=== PATIENT | female | born 1980 | race Caucasian/White ===

== ENCOUNTER 2016-08-28 06:33 | Inpatient (IN) ==
[2016-08-28] MEDS ORDERED: MORPHINE 2 MG/ML SYRINGE IVP STA (06:57)
[2016-08-28] MEDS ORDERED: ZOFRAN 4 MG/2 ML IVP STA (06:57)
--- NOTE | 2016-08-28 07:12 | ED.PDOC ---
General ED Provider: Dr. LOUIS PANTOJA Chief Complaint: Back Pain Stated Complaint: BACK PAIN Time Seen by Physician: 07:00 Mode of Arrival: Walk-In Information Source: Patient Exam Limitations: No limitations [facility] T[facility] Documentation Reviewed and Agree: No Review of Systems - Review Of Systems Constitutional: Reports: Chills, Malaise, Weakness Eyes: Reports: No symptoms Ears, Nose, Mouth, Throat: Reports: No symptoms Respiratory: Reports: No symptoms Cardiac: Reports: No symptoms GI: Reports: No symptoms : Reports: No symptoms Musculoskeletal: Reports: Back pain Skin: Reports: No symptoms Neurological: Reports: No symptoms Endocrine: Reports: No symptoms Hematologic/Lymphatic: Reports: No symptoms All Other Systems: Reviewed and Negative Past Medical History - Past Medical History Previously Healthy: Yes Endocrine: Reports: None Cardiovascular: Reports: None Respiratory: Reports: None Hematological: Reports: None Gastrointestinal: Reports: None Genitourinary: Reports: None, UTI (yearly-no known predisposing factrs) Neuro/Psych: Reports: Migraine Musculoskeletal: Reports: Back Pain Cancer: Reports: None Last Menstrual Period: 2006 Other Pertinent Past Medical History: chronic low back pain - Surgical History General Surgical History: Reports: Hysterectomy, Tonsillectomy, Back Surgery ( lumbar spine), Other (ear tubes) - Family History Family History: Reports: Unknown - Social History Smoking Status: Current every day smoker Hx Substance Use: No Alcohol Screening: None - Immunizations Tetanus Shot up to Date: Yes Physical Exam - Physical Exam Appearance: Ill-appearing Ill-appearing: Moderate Pain Distress: Moderate Eyes: CRAIG, EOMI, Conjunctiva clear ENT: Ears normal, Nose normal, Oropharynx normal Respiratory: Airway patent, Breath sounds clear, Breath sounds equal, Respirations nonlabored Cardiovascular: RRR, Pulses normal, No rub, No murmur GI/: Soft, Nontender, No masses, Bowel sounds normal, No Organomegaly Musculoskeletal: Normal strength, ROM intact, No edema, No calf tenderness Skin: Warm, Dry, Normal color Neurological: Sensation intact, Motor intact, Reflexes intact, Cranial nerves intact, Alert, Oriented Psychiatric: Affect appropriate, Mood appropriate Interpretation - Radiology Interpretation Radiology Interpretation By: Radiologist Radiology Results: Positive (aUTI) Physician Notification - Case Discussed Physician Notified: COOPER Time of Notification: 09:09 Critical Care Note - Critical Care Note Total Time (mins): 0 Course - Course Hematology/Chemistry: 08/28/16 07:05 08/28/16 07:05 Orders, Labs, Meds: Lab Review 08/28/16 08/28/16 07:05 07:13 WBC 19.21 H RBC 5.21 Hgb 14.1 Hct 43.7 MCV 83.9 MCH 27.1 MCHC 32.3 RDW Coeff of Veronica 13.4 Plt Count 291 Immature Gran % (Auto) 0.4 Neut % (Auto) 86.9 Lymph % (Auto) 9.7 L Boyle % (Auto) 2.4 Eos % (Auto) 0.4 Baso % (Auto) 0.2 Immature Gran # (Auto) 0.1 Neut # 16.7 H Lymph # 1.9 Boyle # 0.5 Eos # 0.1 Baso # 0.0 D-Dimer 1.07 Sodium 141 Potassium 3.8 Chloride 103 Carbon Dioxide 27 Anion Gap 14.8 BUN 16 Creatinine 1.20 Estimated GFR (MDRD) 51.00 BUN/Creatinine Ratio 13.33 Glucose 119 H Calcium 9.6 Total Bilirubin 0.84 AST 13 L ALT 14 Alkaline Phosphatase 98 Total Protein 8.1 Albumin 3.5 Globulin 4.6 Albumin/Globulin Ratio 0.76 Amylase 47 Lipase 20 Urine Color Yellow Urine Clarity Cloudy Urine pH 6.0 Ur Specific [place] 1.020 Urine Protein 2+ Urine Glucose (UA) Negative Urine Ketones Negative Urine Blood 1+ Urine Nitrite Negative Urine Bilirubin Negative Urine Urobilinogen 0.2 Ur Leukocyte Esterase 2+ Urine Microscopic RBC 2-5 Urine Microscopic WBC 30-50 Ur Squamous Epith Cells 5-10 Urine Bacteria 3+ Orders Category Date Time Status ADMIT PATIENT INPATIENT .TO [facility] (MONITORED BED) ADMISSION 08/28/16 09: 05 Active ACTIVITY .Complete BR CARE 08/28/16 09:05 Active INTAKE & OUTPUT Q8HR CARE 08/28/16 09:05 Active NPO REMINDER: IMAGING ONCE CARE 08/28/16 06:58 Completed NPO REMINDER: IMAGING ONCE CARE 08/28/16 08:04 Active TELEMETRY MONITORING TELE CARE 08/28/16 09:06 Active VITAL SIGNS Q8HR CARE 08/28/16 09:05 Active REGULAR DIET DIETARY 08/28/16 Lunch Ordered IV [ED IV/MEDIPORT/POWERPORT] .ONCE EMERGENCY 08/28/16 06:57 Active AMYLASE Stat LAB 08/28/16 07:05 Completed BLOOD CULTURE Stat LAB 08/28/16 08:56 Ordered CBC W/ AUTO DIFF DAILY@0600 LAB 08/29/16 06:00 Ordered CBC W/ AUTO DIFF DAILY@0600 LAB 08/30/16 06:00 Ordered CBC W/ AUTO DIFF DAILY@0600 LAB 08/31/16 06:00 Ordered CBC W/ AUTO DIFF DAILY@0600 LAB 09/01/16 06:00 Ordered CBC W/ AUTO DIFF DAILY@0600 LAB 09/02/16 06:00 Ordered CBC W/ AUTO DIFF DAILY@0600 LAB 09/03/16 06:00 Ordered CBC W/ AUTO DIFF DAILY@0600 LAB 09/04/16 06:00 Ordered CBC W/ AUTO DIFF DAILY@0600 LAB 09/05/16 06:00 Ordered CBC W/ AUTO DIFF DAILY@0600 LAB 09/06/16 06:00 Ordered CBC W/ AUTO DIFF DAILY@0600 LAB 09/07/16 06:00 Ordered CBC W/ AUTO DIFF DAILY@0600 LAB 09/08/16 06:00 Ordered CBC W/ AUTO DIFF DAILY@0600 LAB 09/09/16 06:00 Ordered CBC W/ AUTO DIFF DAILY@0600 LAB 09/10/16 06:00 Ordered CBC W/ AUTO DIFF DAILY@0600 LAB 09/11/16 06:00 Ordered CBC W/ AUTO DIFF DAILY@0600 LAB 09/12/16 06:00 Ordered CBC W/ AUTO DIFF DAILY@0600 LAB 09/13/16 06:00 Ordered CBC W/ AUTO DIFF DAILY@0600 LAB 09/14/16 06:00 Ordered CBC W/ AUTO DIFF DAILY@0600 LAB 09/15/16 06:00 Ordered CBC W/ AUTO DIFF DAILY@0600 LAB 09/16/16 06:00 Ordered CBC W/ AUTO DIFF DAILY@0600 LAB 09/17/16 06:00 Ordered CBC W/ AUTO DIFF Stat LAB 08/28/16 07:05 Completed COMPREHENSIVE METABOLIC PANEL DAILY@0600 LAB 08/29/16 06:00 Ordered COMPREHENSIVE METABOLIC PANEL DAILY@0600 LAB 08/30/16 06:00 Ordered COMPREHENSIVE METABOLIC PANEL DAILY@0600 LAB 08/31/16 06:00 Ordered COMPREHENSIVE METABOLIC PANEL DAILY@0600 LAB 09/01/16 06:00 Ordered COMPREHENSIVE METABOLIC PANEL DAILY@0600 LAB 09/02/16 06:00 Ordered COMPREHENSIVE METABOLIC PANEL DAILY@0600 LAB 09/03/16 06:00 Ordered COMPREHENSIVE METABOLIC PANEL DAILY@0600 LAB 09/04/16 06:00 Ordered COMPREHENSIVE METABOLIC PANEL DAILY@0600 LAB 09/05/16 06:00 Ordered COMPREHENSIVE METABOLIC PANEL DAILY@0600 LAB 09/06/16 06:00 Ordered COMPREHENSIVE METABOLIC PANEL DAILY@0600 LAB 09/07/16 06:00 Ordered COMPREHENSIVE METABOLIC PANEL DAILY@0600 LAB 09/08/16 06:00 Ordered COMPREHENSIVE METABOLIC PANEL DAILY@0600 LAB 09/09/16 06:00 Ordered COMPREHENSIVE METABOLIC PANEL DAILY@0600 LAB 09/10/16 06:00 Ordered COMPREHENSIVE METABOLIC PANEL DAILY@0600 LAB 09/11/16 06:00 Ordered COMPREHENSIVE METABOLIC PANEL DAILY@0600 LAB 09/12/16 06:00 Ordered COMPREHENSIVE METABOLIC PANEL DAILY@0600 LAB 09/13/16 06:00 Ordered COMPREHENSIVE METABOLIC PANEL DAILY@0600 LAB 09/14/16 06:00 Ordered COMPREHENSIVE METABOLIC PANEL DAILY@0600 LAB 09/15/16 06:00 Ordered COMPREHENSIVE METABOLIC PANEL DAILY@0600 LAB 09/16/16 06:00 Ordered COMPREHENSIVE METABOLIC PANEL DAILY@0600 LAB 09/17/16 06:00 Ordered COMPREHENSIVE METABOLIC PANEL Stat LAB 08/28/16 07:05 Completed D-DIMER Stat LAB 08/28/16 07:05 Completed LACTIC ACID Stat LAB 08/28/16 08:56 Ordered LIPASE Stat LAB 08/28/16 07:05 Completed URINALYSIS C & S IF INDICATED Stat LAB 08/28/16 07:13 Completed URINE CULTURE Stat LAB 08/28/16 07:13 Received 0.9 % Sodium Chloride [Saline Flush] MEDS 08/28/16 06:57 Active 1 syr IVF PRN PRN Ceftriaxone Sodium [Rocephin] 1 gm MEDS 08/29/16 09:00 Ordered 0.9 % Sodium Chloride [Sodium Chloride] 50 ml IV DAILY Morphine Sulfate [Morphine 2 mg/ml Syringe] MEDS 08/28/16 06:57 Discontinued 2 mg IVP ONCE STA Morphine Sulfate [Morphine 4 mg/ml Syringe] MEDS 08/28/16 09:30 Ordered 2 mg IVP Q6H Morphine Sulfate [Morphine 4 mg/ml Syringe] MEDS 08/28/16 08:35 Discontinued 4 mg IVP ONCE STA Ondansetron HCl/Pf [Zofran 4 mg/2 ml] MEDS 08/28/16 06:57 Discontinued 4 mg IVP ONCE STA Ondansetron HCl/Pf [Zofran 4 mg/2 ml] MEDS 08/28/16 09:30 Ordered 4 mg IVP Q6H Sodium Chloride 0.9% [Sodium Chloride] 1,000 ml MEDS 08/28/16 09:30 Active IV 75 mls/hr CT ABDOMEN/PELVIS W/WO CONTRAS Stat RADS 08/28/16 08:[address] LUMBAR SPINE W/O CONTRAST Stat RADS 08/28/16 07:11 Completed Medications Generic Name Dose Route Start Last Admin Trade Name Freq PRN Reason Stop Dose Admin Ceftriaxone Sodium 1 gm/ 50 mls @ 75 mls/hr 08/29/16 09:00 Sodium Chloride IV DAILY PAULA Sodium Chloride 1,000 mls @ 75 mls/hr 08/28/16 09:30 Sodium Chloride IV .[id number] PAULA Ceftriaxone Sodium 1 gm/ 50 mls @ 75 mls/hr 08/28/16 09:08 Sodium Chloride IV 08/28/16 09:47 ONCE STA Morphine Sulfate 2 mg 08/28/16 09:30 Morphine 4 Mg/Ml Syringe IVP Q6H PAULA Ondansetron HCl 4 mg 08/28/16 09:30 Zofran 4 Mg/2 Ml IVP Q6H PAULA Sodium Chloride 1 syr 08/28/16 06:57 08/28/16 07:15 Saline Flush IVF 1 syr PRN PRN Administration To flush IV Discontinued Medications Generic Name Dose Route Start Last Admin Trade Name Freq PRN Reason Stop Dose Admin Morphine Sulfate 2 mg 08/28/16 06:57 08/28/16 07:13 Morphine 2 Mg/Ml Syringe IVP 08/28/16 06:58 2 mg ONCE STA Administration Morphine Sulfate 4 mg 08/28/16 08:35 08/28/16 08:49 Morphine 4 Mg/Ml Syringe IVP 08/28/16 08:36 4 mg ONCE STA Administration Ondansetron HCl 4 mg 08/28/16 06:57 08/28/16 07:12 Zofran 4 Mg/2 Ml IVP 08/28/16 06:58 4 mg ONCE STA Administration Vital Signs: Temp Pulse Resp BP Pulse Ox 08/28/16 06:36 97.8 F 123 H 24 122/84 96 Departure - Departure Time of Disposition: 09:09 Disposition: ADMITTED INPATIENT Discharge Problem: Backache, UTI (urinary tract infection) Instructions: Urinary Tract Infection in Women (ED) Condition: Good Pt referred to PMD for follow-up: Yes Additional Instructions: Please call your Family Physician as soon as possible to schedule a follow-up appointment. Allergies/Adverse Reactions: Allergies bacitracin [From Neosporin ([id number])] Adverse Reaction (Verified 08/28/16 06:42) bacitracin zinc [From Neosporin ([id number])] Adverse Reaction (Verified 06:42) diphenhydramine HCl [From Benadryl] Adverse Reaction (Verified 08/28/16 06:42) increases heart rate above 200 levalbuterol HCl [From Xopenex] Adverse Reaction (Verified 08/28/16 06:42) increases heart rate over 200, painful breathing neomycin sulfate [From Neosporin ([id number])] Adverse Reaction (Verified 06:42) polymyxin B [From Neosporin ([id number])] Adverse Reaction (Verified 06:42) prednisone Adverse Reaction (Verified 08/28/16 06:42) Fever causes high fever, rash, redness bacitracin Adverse Reaction (Uncoded 08/28/16 06:42) bacitracin zinc Adverse Reaction (Uncoded 08/28/16 06:42) diphenhydramine HCl Adverse Reaction (Uncoded 08/28/16 06:42) levalbuterol HCl Adverse Reaction (Uncoded 08/28/16 06:42) neomycin sulfate Adverse Reaction (Uncoded 08/28/16 06:42) Polymyxin B Adverse Reaction (Uncoded 08/28/16 06:42) Home Medications: Ambulatory Orders Gabapentin 300 mg PO TID 03/17/15 Esomeprazole Magnesium [Nexium 24Hr] 20 mg PO DAILY 02/09/16 Epinephrine [Epipen 2-Bjorn] 0.3 mg IJ PRN PRN #1 ml 02/10/16 Cholecalciferol (Vitamin D3) [Vitamin D] 1,000 unit PO DAILY 04/19/16 Estradiol 2 mg PO DAILY 04/19/16 Methylprednisolone [Medrol Dosepak] 4 mg PO DIRECTED #1 pkg 04/19/16 Tramadol HCl 50 mg PO BID #14 tablet 04/19/16 Loratadine 10 mg PO DAILY 07/18/16 Disposition Discussed With: Patient, Family
[2016-08-28 07:14] LABS: BASOPHILS % (AUTO) 0.2 % (0.0-3.0); EOSINOPHILS # (AUTO) 0.1 K/ul (0.0-0.7); EOSINOPHILS % (AUTO) 0.4 % (0.0-7.0); HEMATOCRIT 43.7 % (37.0-47.0); HEMOGLOBIN 14.1 g/dl (12.0-16.0); IMMATURE GRANULOCYTE % (AUTO) 0.4 % (0.0-5.0); LYMPHOCYTES # (AUTO) 1.9 K/uL (0.60-3.4); LYMPHOCYTES % (AUTO) 9.7 (10.0-50.0); MEAN CORPUSCULAR HEMOGLOBIN 27.1 pg (27.0-31.0); MEAN CORPUSCULAR HGB CONC 32.3 (31.8-35.4); MEAN CORPUSCULAR VOLUME 83.9 fl (81.0-99.0); MONOCYTES # (AUTO) 0.5 K/uL (0.4-2.0); MONOCYTES % (AUTO) 2.4 (0-10); NEUTROPHILS # (AUTO) 16.7 K/ul (2.0-6.9); NEUTROPHILS % (AUTO) 86.9; PLATELET COUNT 291 10^3/uL (140-440); RED BLOOD COUNT 5.21 10^6/ul (4.20-5.40); WHITE BLOOD COUNT 19.21 K/ul (4.6-10.2)
[2016-08-28 07:34] LABS: ALBUMIN 3.5 g/dL (3.4-5.0); ALBUMIN/GLOBULIN RATIO 0.76; ANION GAP 14.8; BILIRUBIN,TOTAL 0.84 mg/dL (0.00-1.20); BUN/CREATININE RATIO 13.33; CALCIUM 9.6 mg/dL (8.2-10.2); CREATININE 1.2 mg/dL (0.60-1.30); POTASSIUM 3.8 mmol/L (3.5-5.10); TOTAL PROTEIN 8.1 g/dL (6.4-8.2)
[2016-08-28 08:07] LABS: BILIRUBIN,URINE Negative (NEGATIVE); KETONES,URINE Negative (NEGATIVE); LEUKOCYTE ESTERASE ,URINE 2+ (NEGATIVE); NITRITE,URINE Negative (NEGATIVE); PROTEIN,URINE 2+ (NEGATIVE); URINE, BLOOD 1+ (NEGATIVE)
[2016-08-28 08:09] LABS: ADD URINE MICROSCOPIC YES
[2016-08-28 08:10] LABS: BACTERIA,URINE 3+ (NOT PRESENT)
[2016-08-28] MEDS ORDERED: MORPHINE 4 MG/ML SYRINGE IVP STA (08:35)
--- NOTE | 2016-08-28 08:54 | CT ---
EXAM: CT of the lumbar spine without contrast History: Lower back pain. Comparison: CT abdomen pelvis 11/05/2014 Technique: Multiplanar CT images through the lumbar spine were obtained without the administration of IV contrast. Findings: Partially visualized inflammation and urothelial thickening surrounding the right renal p jacinda and proximal right ureter. No acute fracture or subluxation of the lumbar spine. Severe disc space narrowing at L5-S1 with endp late sclerosis, endplate cystic change and disc spacer material. T12-L1: No significant disc bulge, central canal stenosis or bony neural foraminal narrowing. L1-L2: No significant disc bulge, central canal stenosis or neural foraminal narrowing. L2-L3: No significant disc bulge, central canal stenosis or neural foraminal narrowing. L3-L4: Small disc bulge effacing the anterior thecal sac with no significant central canal stenosis or neural foraminal narrowing. L4-L5: Small disc bulge effacing the anterior thecal sac with no significant central canal stenosis or neural foraminal narrowing. L5-S1: No significant disc bulge or central canal stenosis. The finding suggests a right sided easley inectomy. Moderate to severe right and mild to moderate left bony neural foraminal narrowing second aaron to uncovertebral and facet hypertrophy. Impression: 1. No acute fracture or subluxation of the lumbar spine. 2. Partially visualized inflammation and urothelial thickening involving the right renal pelvis and proximal right ureter concerning for urinary tract infection. Distal ureteral stone is not exclude d. Correlate with urinalysis. 3. Level by level analysis as detailed above with postsurgical changes at L5-S1 and moderate to sev ere right-sided bony neural foraminal narrowing at L5-S1.
--- NOTE | 2016-08-28 08:59 | CT ---
EXAM: CT scan of the abdomen and pelvis with and without contrast HISTORY: Fever, pain TECHNIQUE: Imaging of the abdomen and pelvis was performed before and following the intravenous adm inistration of contrast. 3 mm thin axial images and coronal and sagittal reconstructions were provi ded for interpretation. Comparison 11/05/2014. FINDINGS: The liver, spleen, pancreas, adrenal glands appear normal. There is mild dilatation of t he proximal right ureter. There is enhancement of the wall of the proximal right ureter. Patchy lo w density changes are seen within the right kidney. The left kidney appears normal. The left ureter appears normal size. The small and large bowel loops are normal caliber. The appendix appears nor mal. There has been previous cholecystectomy. The helical images obtained through the pelvis. There is a normal appearance of the rectum, urinary bladder. There is no free fluid seen within the pelvis. There is no free air. No acute abnormali ties are seen within the anterior abdominal wall. Patchy atelectasis is identified within the lung bases bilaterally. No lytic or blastic lesions are seen within the osseous structures. IMPRESSION: Acute pyelonephritis of the right kidney. No evidence for small bowel obstruction.
[2016-08-28] MEDS ORDERED: ROCEPHIN 1 GM in SODIUM CHLORIDE 50 ML IV STA (09:08)
[2016-08-28] MEDS ORDERED: ROCEPHIN ONE (09:26)
[2016-08-28] MEDS ORDERED: MORPHINE 4 MG/ML SYRINGE IVP SCH (09:30)
[2016-08-28] MEDS: SODIUM CHLORIDE 1,000 ML IV SCH (09:46)
[2016-08-28 11:00] VITALS: BMI 32.0
[2016-08-28] MEDS: DILAUDID 2 MG/ML SYRINGE IVP PRN ×2 (11:11→18:27)
[2016-08-28] MEDS ORDERED: ZOFRAN 4 MG/2 ML IVP SCH (12:00)
[2016-08-28] MEDS ORDERED: MORPHINE 2 MG/ML SYRINGE IVP SCH (12:00)
[2016-08-28] MEDS: BACLOFEN PO SCH ×2 (15:22→20:06)
[2016-08-28] MEDS: NEURONTIN PO SCH ×2 (15:22→20:06)
[2016-08-28] MEDS: ZOFRAN 4 MG/2 ML IVP PRN (18:27)
[2016-08-28] MEDS ORDERED: VANCOMYCIN 1 GM in SODIUM CHLORIDE 250 ML IV SCH (22:00)
[2016-08-29] MEDS: SODIUM CHLORIDE 1,000 ML IV SCH (00:58)
[2016-08-29] MEDS: ZOFRAN 4 MG/2 ML IVP PRN ×3 (01:56→21:36)
[2016-08-29] MEDS: DILAUDID 2 MG/ML SYRINGE IVP PRN ×3 (01:56→21:33)
[2016-08-29 04:31] LABS: BASOPHILS % (AUTO) 0.1 % (0.0-3.0); EOSINOPHILS # (AUTO) 0.2 K/ul (0.0-0.7); EOSINOPHILS % (AUTO) 1.2 % (0.0-7.0); HEMATOCRIT 34.8 % (37.0-47.0); HEMOGLOBIN 11.3 g/dl (12.0-16.0); IMMATURE GRANULOCYTE % (AUTO) 0.8 % (0.0-5.0); LYMPHOCYTES % (AUTO) 20.9 (10.0-50.0); MEAN CORPUSCULAR HEMOGLOBIN 27.4 pg (27.0-31.0); MEAN CORPUSCULAR HGB CONC 32.5 (31.8-35.4); MEAN CORPUSCULAR VOLUME 84.5 fl (81.0-99.0); MONOCYTES # (AUTO) 1.3 K/uL (0.4-2.0); MONOCYTES % (AUTO) 8.9 (0-10); NEUTROPHILS # (AUTO) 9.7 K/ul (2.0-6.9); NEUTROPHILS % (AUTO) 68.1; PLATELET COUNT 223 10^3/uL (140-440); RED BLOOD COUNT 4.12 10^6/ul (4.20-5.40); WHITE BLOOD COUNT 14.22 K/ul (4.6-10.2)
[2016-08-29 04:49] LABS: ALBUMIN 2.8 g/dL (3.4-5.0); ALBUMIN/GLOBULIN RATIO 0.72; BILIRUBIN,TOTAL 0.59 mg/dL (0.00-1.20); BUN/CREATININE RATIO 12.87; CALCIUM 8.9 mg/dL (8.2-10.2); CREATININE 1.01 mg/dL (0.60-1.30); TOTAL PROTEIN 6.7 g/dL (6.4-8.2)
[2016-08-29] MEDS ORDERED: ROCEPHIN 1 GM in SODIUM CHLORIDE 50 ML IV SCH (09:00)
[2016-08-29] MEDS ORDERED: ROCEPHIN 1 GM in SODIUM CHLORIDE 100 ML IV SCH (09:00)
[2016-08-29] MEDS: NEURONTIN PO SCH ×3 (09:02→21:17)
[2016-08-29] MEDS: BACLOFEN PO SCH ×3 (09:02→21:17)
[2016-08-29] MEDS: VANCOMYCIN 1 GM in SODIUM CHLORIDE 250 ML IV SCH ×2 (10:10→21:17)
[2016-08-29] MEDS ORDERED: IMITREX PO STA (10:34)
[2016-08-29] MEDS ORDERED: IMITREX PO PRN (10:35)
--- NOTE | 2016-08-29 11:05 | HP ---
DATE OF SERVICE: 08/28/16 CHIEF COMPLAINT: Right constant flank pain. HISTORY OF PRESENT ILLNESS: This is a 36-year-old female who has been having right-sided flank pain starting two to three days ago. Before that, the patient had burning, frequency and urgency of urination. The patient also had a recent lower back surgery where a pain stimulator was placed by Dr. Khan. Initially she thought it was hurting from back spasm but as the pain was getting worse, the patient came to the emergency room and was seen by Dr. Walter. White count was 19,000. D. dimer negative. Urine is cloudy with 2+ protein, 1+ blood. Nitrites negative. Leukocyte esterase 2+ positive. CT abdomen and pelvis showed right-sided pyelonephritis. At that time, the patient is admitted to the hospital for IV antibiotics and pain control. REVIEW OF SYSTEMS: CONSTITUTIONAL: Weakness, tiredness. No fever, no chills. HEENT: Normal. ENDOCRINE: No weight gain; no weight loss. CVS: No chest pain. No PND, no orthopnea. No shortness of breath. RESPIRATORY: No cough, no congestion. No hemoptysis. GI: Right flank pain. No nausea, no vomiting. No abdominal pain. No melena. : Burning and frequency of urination. No hematuria. No polyuria. MUSCULOSKELETAL: No joint swelling. PSYCHIATRIC: Not anxious. No depression. No suicidal thoughts. No homicidal thoughts. SKIN: Intact, no open lesions. PAST MEDICAL HISTORY: 1. Depression 2. Anxiety 3. DJD spine 4. Osteoarthritis 5. Peripheral neuropathy PAST SURGICAL HISTORY: 1. Spinal fusion 2. Total hysterectomy 3. Lumbar stimulator, 08/17/[address] Khan PERSONAL HISTORY: The patient does smoke. She is . No alcohol use. No ilicit drug use. FAMILY HISTORY: Significant for cervical cancer. MEDICATIONS: (HOME) 1. Gabapentin 300 mg p.o. t.i.d. 2. Epinephrine (Epipen) 0.3 mg p.r.n. 3. Cholecalciferol (Vitamin D3) 1,000 unit p.o. daily 4. Estradiol 2 mg p.o. daily 5. Loratadine 10 mg p.o. daily 6. Fluticasone two spray NS daily p.r.n. 7. Baclofen 10 mg p.o. t.i.d. 8. Oxycodone - Acetaminophen 10-325 one tab p.o. q.4h ALLERGIES: BACITRACIN, DIPHENHYDRAMINE, LEVALBUTEROL PHYSICAL EXAMINATION: V/S: BP 122/84, respiratory rate 24, heart rate 96, temperature 97.8, heart rate 123, saturation 96%. HEENT: Atraumatic, normocephalic. Mucosa dry. NECK: Supple. No JVD, no bruit. No lymphadenopathy. No thyromegaly. HEART: S1, S2 normal. No murmur. No cyanosis or clubbing. No ascites. LUNGS: Bilateral entry is decreased and clear to auscultation. No rales or rhonchi. ABDOMEN: Soft, right flank pain, right CVA tenderness positive. EXTREMITIES: No cyanosis, clubbing or pedal edema. MUSCULOSKELETAL: Normal joints, no swelling. Grossly intact. NEUROLOGIC: The patient is awake, alert, oriented times three. SKIN: Intact; no open lesions. LYMPHATIC: No lymph nodes palpable. LABS: White count 19.21, hemoglobin 14.1, hematocrit 43.7, platelet count 291. D. dimer 1.07. Sodium 141, potassium 3.8, chloride 103, bicarb 27, BUN 16, creatinine 1.20, glucose 119. Urine is cloudy. Protein 2+. Blood 1+. Leukocyte Esterase 2+. 3+ bacteria. ASSESSMENT: 1. RIGHT-SIDED ACUTE PYELONEPHRITIS 2. RECENT PAIN STIMULATOR ON 08/17/[address] KHAN 3. DJD SPINE 4. OSTEOARTHRITIS PLAN: 1. Admit the patient to the regular floor. 2. CBC, CMP today and daily. 3. Regular diet. 4. IV fluids. 5. Rocephin 1 gm daily. 6. Continue home medication. 7. Dilaudid 2 mg for moderate to severe pain. TIME SPENT: More than 65 minutes today. MTDD
--- NOTE | 2016-08-29 13:50 | PCM.PROG ---
Attending Provider: ATTENDING PROVIDER: Dr. RADHA GAMBOA DATE OF SERVICE: 08/29/16 SUBJECTIVE: This 36 year old WHITE/ F was hospitalized 08/28/16. The patient is admitted with right-sided flank pain, back pain and UTI. CT scan revealed right pyelonephritis. Blood cultures are positive for gram positive cocci. No fever. White count is better. The patient was started on Vancomycin last night. Will inform Dr. Khan of her admission. REVIEW OF SYSTEMS: CONSTITUTIONAL: No fever, no chills. ENDOCRINE: No weight loss or weight gain. HEENT: No sinus drainage, no sore throat. NECK: Neck pain and stiffness - the patient can touch chin to chest without rigidity. Most likely pain and stiffness is caused by muscle spasm. CVS: No angina symptoms. No CHF symptoms. No palpitations. No atypical chest pain for CAD. No shortness of breath. RESPIRATORY: No cough, no hemoptysis. GI: Right flank pain. No melena. No nausea, no vomiting. : No hematuria. No polyuria. SKIN: Surgical site looks healthy - mid to left lower back with tenderness. MUSCULOSKELETAL: Back pain; neck pain. COFFIN MAKER: No blackout, no dizziness. No headache. No double vision. PSYCHIATRIC: Not anxious; no depression. No suicidal thoughts. No homicidal thoughts. PHYSICAL EXAMINATION: GENERAL: Lying in bed in mild distress. VITAL SIGNS: Temperature 97.4 F, Pulse 72, Respiratory Rate 17, BP 85/54, Pulse Ox 96% HEENT: Normocephalic, atraumatic. Mucosa is dry, pallor positive. NECK: As above - pain and stiffness. Range of motion decreased. No JVP, no carotid bruit. No lymphadenopathy. CARDIAC: S1, S2, no S3. No murmur, gallop or regurgitation. LUNGS: Clear to auscultation. ABDOMEN: Right flank pain. Bowel sounds active. Right CVA tenderness. No Brudzkinski signs. Surgical site mid to left lower back -mild tenderness, no drainage, healthy looking. EXTREMITIES: No clubbing, cyanosis or edema. NEUROLOGIC: Awake, alert and oriented x3. LYMPHATIC: No palpable lymph nodes SKIN: Not dry. Intact. MUSCULOSKELETAL: No joint swelling. LAB REVIEW: 08/29/16 04:26 08/29/16 04:26 08/29/16 04:26: WBC 14.22 H, RBC 4.12 L, Hgb 11.3 L, Hct 34.8 L D, MCV 84.5, MCH 27.4, MCHC 32.5, RDW Coeff of Veronica 13.5, Plt Count 223, Immature Gran % (Auto ) 0.8, Neut % (Auto) 68.1, Lymph % (Auto) 20.9, [place] % (Auto) 8.9, Eos % (Auto) 1.2, Baso % (Auto) 0.1, Immature Gran # (Auto) 0.1, Neut # 9.7 H, Lymph # 3.0, [place] # 1.3, Eos # 0.2, Baso # 0.0, Sodium 139, Potassium 4.0, Chloride 104, Carbon Dioxide 27, Anion Gap 12.0, BUN 13, Creatinine 1.01, Estimated GFR (MDRD ) 63.00, BUN/Creatinine Ratio 12.87, Glucose 98, Calcium 8.9, Total Bilirubin 0.59, AST 12 L, ALT 10 L, Alkaline Phosphatase 78, Total Protein 6.7, Albumin 2.8 L, Globulin 3.9, Albumin/Globulin Ratio 0.72 ASSESSMENT: 1. Right pyelonephritis 2. Bacturemia with gram positive cocci 3. DJD spine 4. Osteoarthritis 5. Recent TENS unit placement by Dr. Khan on August 17 PLAN: 1. Continue Rocephin and Vancomycin 2. Will inform Dr. Khan of the patient's admission should the patient be transferred to [facility], [place], [facility] and coordination of the patient's care discussed in the presence of Eligibility Consultant and nurse. CONDITION: STABLE SCRIBED BY: Zion BURNSist scribed while in presence of service performed by Dr. RADHA GAMBOA on 08/29/16 ([id number])
[2016-08-29] MEDS: NORCO 7.5-325 PO PRN (17:49)
[2016-08-29] MEDS ORDERED: VANCOMYCIN 1 GM in SODIUM CHLORIDE 250 ML IV SCH (21:00)
[2016-08-30] MEDS: SODIUM CHLORIDE 1,000 ML IV SCH ×3 (02:46→17:59)
[2016-08-30 05:12] LABS: BASOPHILS % (AUTO) 0.1 % (0.0-3.0); EOSINOPHILS # (AUTO) 0.1 K/ul (0.0-0.7); EOSINOPHILS % (AUTO) 0.9 % (0.0-7.0); HEMOGLOBIN 12.1 g/dl (12.0-16.0); IMMATURE GRANULOCYTE % (AUTO) 0.3 % (0.0-5.0); LYMPHOCYTES # (AUTO) 1.8 K/uL (0.60-3.4); LYMPHOCYTES % (AUTO) 22.9 (10.0-50.0); MEAN CORPUSCULAR HEMOGLOBIN 27.2 pg (27.0-31.0); MEAN CORPUSCULAR HGB CONC 31.8 (31.8-35.4); MEAN CORPUSCULAR VOLUME 85.4 fl (81.0-99.0); MONOCYTES # (AUTO) 0.7 K/uL (0.4-2.0); MONOCYTES % (AUTO) 8.4 (0-10); NEUTROPHILS # (AUTO) 5.3 K/ul (2.0-6.9); NEUTROPHILS % (AUTO) 67.4; PLATELET COUNT 225 10^3/uL (140-440); RED BLOOD COUNT 4.45 10^6/ul (4.20-5.40); WHITE BLOOD COUNT 7.78 K/ul (4.6-10.2)
[2016-08-30] MEDS: NORCO 7.5-325 PO PRN ×2 (05:23→19:41)
[2016-08-30 05:32] LABS: ALBUMIN/GLOBULIN RATIO 0.68; BILIRUBIN,TOTAL 0.37 mg/dL (0.00-1.20); BUN/CREATININE RATIO 7.76; CALCIUM 9.3 mg/dL (8.2-10.2); CREATININE 1.03 mg/dL (0.60-1.30); TOTAL PROTEIN 7.4 g/dL (6.4-8.2)
[2016-08-30] MEDS: ROCEPHIN 1 GM in SODIUM CHLORIDE 50 ML IV SCH (08:53)
[2016-08-30] MEDS: BACLOFEN PO SCH ×3 (08:53→20:17)
[2016-08-30] MEDS: NEURONTIN PO SCH ×3 (08:53→20:17)
[2016-08-30] MEDS ORDERED: ROCEPHIN 1 GM in SODIUM CHLORIDE 100 ML IV SCH (09:00)
--- NOTE | 2016-08-30 09:32 | PCM.PROG ---
Attending Provider: ATTENDING PROVIDER: Dr. RADHA GAMBOA DATE OF SERVICE: 08/30/16 SUBJECTIVE: This 36 year old WHITE/ F was hospitalized 08/28/16. The patient continues to have a fever of 100. Urine and blood cultures are positive for E. coli which is sensitive to Rocephin. She complains of a dull headache that she describes comes in waves. She states she has had migraines in the past; however , this headache came on with the present illness. The patient has been up walking. No nausea or vomiting. She states she is able to hold down all of her food. Neck pain and stiffness is better. REVIEW OF SYSTEMS: CONSTITUTIONAL: Fever. No chills. ENDOCRINE: No weight loss or weight gain. HEENT: No sinus drainage, no sore throat. CVS: No angina symptoms. No CHF symptoms. No palpitations. No atypical chest pain for CAD. No shortness of breath. RESPIRATORY: No cough, no hemoptysis. GI: No melena. No abdominal pain. No nausea, no vomiting. : No hematuria. No polyuria. SKIN: No rash. No wounds. MUSCULOSKELETAL: No pain. ENERGY DERIVATIVES TRADER: No blackout, no dizziness. No headache. No double vision. PSYCHIATRIC: Not anxious; no depression. No suicidal thoughts. No homicidal thoughts. PHYSICAL EXAMINATION: GENERAL: Lying in bed in no distress. VITAL SIGNS: Temperature 100.7 F, Pulse 88, Respiratory Rate 16, BP 101/68, Pulse Ox 97% HEENT: Normocephalic, atraumatic. Mucosa is dry, pallor positive. NECK: No JVP, no carotid bruit. No lymphadenopathy. CARDIAC: S1, S2, no S3. No murmur, gallop or regurgitation. LUNGS: Clear to auscultation. ABDOMEN: Right CVA tenderness is better. Soft, non-tender. Bowel sounds active. No rigidity or guarding. EXTREMITIES: No clubbing, cyanosis or edema. NEUROLOGIC: Awake, alert and oriented x3. LYMPHATIC: No palpable lymph nodes SKIN: Not dry. Intact. MUSCULOSKELETAL: No joint swelling. LAB REVIEW: 08/30/16 05:10 08/30/16 05:10 08/30/16 05:10: WBC 7.78 D, RBC 4.45, Hgb 12.1, Hct 38.0, MCV 85.4, MCH 27.2, MCHC 31.8, RDW Coeff of Veronica 13.4, Plt Count 225, Immature Gran % (Auto) 0.3, Neut % (Auto) 67.4, Lymph % (Auto) 22.9, [place] % (Auto) 8.4, Eos % (Auto) 0.9, Baso % (Auto) 0.1, Immature Gran # (Auto) 0.0, Neut # 5.3, Lymph # 1.8, [place] # 0.7, Eos # 0.1, Baso # 0.0, Sodium 142, Potassium 4.0, Chloride 104, Carbon Dioxide 28, Anion Gap 14.0, BUN 8, Creatinine 1.03, Estimated GFR (MDRD) 61.00, BUN/Creatinine Ratio 7.76, Glucose 95, Calcium 9.3, Total Bilirubin 0.37, AST 13 L, ALT 14, Alkaline Phosphatase 83, Total Protein 7.4, Albumin 3.0 L, Globulin 4.4, Albumin/Globulin Ratio 0.68 ASSESSMENT: 1. Right pyelonephritis 2. Bacturemia with gram positive cocci 3. DJD spine 4. Osteoarthritis 5. Recent TENS unit placement by Dr. Khan on August 17 6. History of migraine headaches PLAN: 1. Continue antibiotics 2. Stop Vancomycin 3. Continue Rocephin Plan and coordination of the patient's care discussed in the presence of Is Manager and nurse. CONDITION: Stable SCRIBED BY: ALEX ROGERS Wind Turbine Mechanical Engineer scribed while in presence of service performed by Dr. RADHA GAMBOA on 08/30/16 ([id number])
[2016-08-30] MEDS: DILAUDID 2 MG/ML SYRINGE IVP PRN (13:30)
[2016-08-31] MEDS: ZOFRAN 4 MG/2 ML IVP PRN (01:32)
[2016-08-31] MEDS: DILAUDID 2 MG/ML SYRINGE IVP PRN ×2 (01:32→13:54)
[2016-08-31 05:06] LABS: BASOPHILS % (AUTO) 0.1 % (0.0-3.0); EOSINOPHILS # (AUTO) 0.2 K/ul (0.0-0.7); HEMATOCRIT 34.4 % (37.0-47.0); HEMOGLOBIN 10.9 g/dl (12.0-16.0); IMMATURE GRANULOCYTE % (AUTO) 0.5 % (0.0-5.0); LYMPHOCYTES # (AUTO) 2.7 K/uL (0.60-3.4); LYMPHOCYTES % (AUTO) 34.5 (10.0-50.0); MEAN CORPUSCULAR HGB CONC 31.7 (31.8-35.4); MEAN CORPUSCULAR VOLUME 85.4 fl (81.0-99.0); MONOCYTES % (AUTO) 12.4 (0-10); NEUTROPHILS % (AUTO) 50.5; PLATELET COUNT 223 10^3/uL (140-440); RED BLOOD COUNT 4.03 10^6/ul (4.20-5.40); WHITE BLOOD COUNT 7.92 K/ul (4.6-10.2)
[2016-08-31 05:27] LABS: ALBUMIN 2.8 g/dL (3.4-5.0); ALBUMIN/GLOBULIN RATIO 0.68; ANION GAP 12.3; BILIRUBIN,TOTAL 0.28 mg/dL (0.00-1.20); BUN/CREATININE RATIO 8.42; CALCIUM 9.3 mg/dL (8.2-10.2); CREATININE 0.95 mg/dL (0.60-1.30); POTASSIUM 4.3 mmol/L (3.5-5.10); TOTAL PROTEIN 6.9 g/dL (6.4-8.2)
[2016-08-31] MEDS: SODIUM CHLORIDE 1,000 ML IV SCH ×2 (08:19→23:27)
[2016-08-31] MEDS: NORCO 7.5-325 PO PRN ×2 (08:26→20:16)
[2016-08-31] MEDS: ROCEPHIN 1 GM in SODIUM CHLORIDE 50 ML IV SCH (09:15)
[2016-08-31] MEDS: NEURONTIN PO SCH ×3 (09:15→20:15)
[2016-08-31] MEDS: BACLOFEN PO SCH ×3 (09:15→20:15)
[2016-09-01] MEDS: DILAUDID 2 MG/ML SYRINGE IVP PRN (01:27)
[2016-09-01 05:48] LABS: BASOPHILS % (AUTO) 0.1 % (0.0-3.0); EOSINOPHILS # (AUTO) 0.2 K/ul (0.0-0.7); HEMATOCRIT 32.9 % (37.0-47.0); HEMOGLOBIN 10.8 g/dl (12.0-16.0); IMMATURE GRANULOCYTE % (AUTO) 0.6 % (0.0-5.0); LYMPHOCYTES # (AUTO) 2.9 K/uL (0.60-3.4); LYMPHOCYTES % (AUTO) 36.9 (10.0-50.0); MEAN CORPUSCULAR HEMOGLOBIN 27.6 pg (27.0-31.0); MEAN CORPUSCULAR HGB CONC 32.8 (31.8-35.4); MEAN CORPUSCULAR VOLUME 84.1 fl (81.0-99.0); MONOCYTES # (AUTO) 0.7 K/uL (0.4-2.0); NEUTROPHILS % (AUTO) 50.4; PLATELET COUNT 256 10^3/uL (140-440); RED BLOOD COUNT 3.91 10^6/ul (4.20-5.40); WHITE BLOOD COUNT 7.92 K/ul (4.6-10.2)
[2016-09-01 06:10] LABS: ALBUMIN 2.6 g/dL (3.4-5.0); ALBUMIN/GLOBULIN RATIO 0.67; ANION GAP 11.3; BILIRUBIN,TOTAL 0.18 mg/dL (0.00-1.20); BUN/CREATININE RATIO 10.1; CALCIUM 9.2 mg/dL (8.2-10.2); CREATININE 0.99 mg/dL (0.60-1.30); POTASSIUM 4.3 mmol/L (3.5-5.10); TOTAL PROTEIN 6.5 g/dL (6.4-8.2)
[2016-09-01] MEDS: BACLOFEN PO SCH ×3 (09:03→20:27)
[2016-09-01] MEDS: NEURONTIN PO SCH ×3 (09:03→20:27)
[2016-09-01] MEDS: ROCEPHIN 1 GM in SODIUM CHLORIDE 50 ML IV SCH (09:03)
--- NOTE | 2016-09-01 09:06 | PN ---
DATE OF SERVICE: 08/31/16 SUBJECTIVE: The patient was admitted with the right sided pyelonephritis, blood culture is also positive for the e-coli and sensitive to the Rocephin. REVIEW OF SYSTEMS: CONSTITUTIONAL: No fever, no chills. HEENT: Normal. ENDOCRINE: No weight gain, no weight loss. CVS: No angina symptoms. No CHF symptoms. No palpitations. No atypical chest pain for CAD. No shortness of breath. No PND, no orthopnea. RESPIRATORY: No cough, no hemoptysis. GI: No nausea, no vomiting. No abdominal pain. : No hematuria. No polyuria. MUSCULOSKELETAL:. No joint swelling. Still has right sided flank pain. Up and about walking. PSYCHIATRIC: Not anxious. No depression. No suicidal thoughts. No homicidal thoughts. SKIN: Intact. No rash. PHYSICAL EXAMINATION: V/S: Blood pressure 136/84, respiratory rate 18, heart rate 92 and temperature 98.0. HEENT: Normocephalic, atraumatic. Ears, eyes, nose and throat normal. Mucosa Dry. Pallor positive. No icterus. NECK: Supple. No JVD, no carotid bruit. No lymphadenopathy. LUNGS: Decreased and clear to auscultation. No rales or rhonchi. HEART: S1, S2 normal. No S3. No murmur, gallop or regurgitation. ABDOMEN: Soft, right severe tenderness present. Bowel sounds active. No rigidity. No rebound or guarding. No CVA tenderness. EXTREMITIES: No clubbing, cyanosis or pedal edema. MUSCULOSKELETAL: No joint swelling. surgical site on the back looks healthy and no drainage. NEUROLOGIC: Awake, alert, oriented times three. No focal deficit. LYMPHATIC: No lymph nodes palpable. SKIN: Intact. LABS: WBC 7.92, hgb 10.9, hct 34.4, plt count 223, sodium 142, potassium 4.3, chloride 106, bicarb 28, BUN 8 and creatinine 0.95. ASSESSMENT: 1. Right sided acute pyelonephritis 2. Bacteremia, e-coli susceptible to the Rocephin 3. Recent TENS unit placement by Dr. Khan 4. DJD spine 5. Osteoarthritis 6. History of migraine headaches 7. Anemia PLAN: 1. Continue the Rocephin 1 gram daily 2. Dilaudid PRN 3. Out of bed to chair activity as tolerated 4. Dr. Lo consult Will follow the patient in daily rounds. TIME SPENT: More than 30 minutes MTDD
[2016-09-01] MEDS: NORCO 7.5-325 PO PRN ×2 (09:08→15:35)
--- NOTE | 2016-09-01 09:23 | PCM.PROG ---
Attending Provider: ATTENDING PROVIDER: Dr. RADHA GAMBOA DATE OF SERVICE: 09/01/16 SUBJECTIVE: This 36 year old WHITE/ F was hospitalized 08/28/16. The patient is afebrile this morning. No chills. Neck pain and headache are a lot better. Right flank pain is still present. We did draw blood cultures yesterday, results pending. REVIEW OF SYSTEMS: CONSTITUTIONAL: No fever, no chills. ENDOCRINE: No weight loss or weight gain. HEENT: No sinus drainage, no sore throat. CVS: No angina symptoms. No CHF symptoms. No palpitations. No atypical chest pain for CAD. No shortness of breath. RESPIRATORY: No cough, no hemoptysis. GI: Right flank pain. No melena. No nausea, no vomiting. : No hematuria. No polyuria. SKIN: No rash. Surgical incision sites are clean and dry. MUSCULOSKELETAL: No osteoarthritic pain. FIELD COURT RESEARCHER: No blackout, no dizziness. No headache. No double vision. PSYCHIATRIC: Not anxious; no depression. No suicidal thoughts. No homicidal thoughts. PHYSICAL EXAMINATION: GENERAL: Lying in bed in no distress. VITAL SIGNS: Temperature 97.4 F, Pulse 80, Respiratory Rate 20, BP 113/80, Pulse Ox 98% HEENT: Normocephalic, atraumatic. Mucosa is dry, pallor positive. NECK: No JVP, no carotid bruit. No lymphadenopathy. CARDIAC: S1, S2, no S3. No murmur, gallop or regurgitation. LUNGS: Clear to auscultation. ABDOMEN: Right CVA tenderness, mild. Soft, non-tender. Bowel sounds active. No rigidity or guarding. EXTREMITIES: No clubbing, cyanosis or edema. NEUROLOGIC: Awake, alert and oriented x3. LYMPHATIC: No palpable lymph nodes SKIN: Not dry. Intact. MUSCULOSKELETAL: No joint swelling. Surgical site intact. LAB REVIEW: 09/01/16 05:30 09/01/16 05:30 09/01/16 05:30: WBC 7.92, RBC 3.91 L, Hgb 10.8 L, Hct 32.9 L, MCV 84.1, MCH 27.6 , MCHC 32.8, RDW Coeff of Veronica 13.3, Plt Count 256, Immature Gran % (Auto) 0.6, Neut % (Auto) 50.4, Lymph % (Auto) 36.9, [place] % (Auto) 9.0, Eos % (Auto) 3.0, Baso % (Auto) 0.1, Immature Gran # (Auto) 0.1, Neut # 4.0, Lymph # 2.9, [place] # 0.7, Eos # 0.2, Baso # 0.0, Sodium 143, Potassium 4.3, Chloride 108 H, Carbon Dioxide 28, Anion Gap 11.3, BUN 10, Creatinine 0.99, Estimated GFR (MDRD) 64.00 , BUN/Creatinine Ratio 10.10, Glucose 87, Calcium 9.2, Total Bilirubin 0.18, AST 12 L, ALT 15, Alkaline Phosphatase 68, Total Protein 6.5, Albumin 2.6 L, Globulin 3.9, Albumin/Globulin Ratio 0.67 ASSESSMENT: 1. Right pyelonephritis, E. coli 2. Bacturemia E. coli 3. Anemia 4. DJD spine 5. Osteoarthritis 6. Recent TENS unit placement by Dr. Khan on August 17 7. History of migraine headaches PLAN: 1. Continue Rocephin 2. Followup with Dr. Khan Discussed with the patient concerning positive blood cultures and UTI for which the patient will need almost 14 days of antibiotics. The patient has followup with Dr. Khan today with respect to TENS unit placement. Meanwhile, we are trying to get consult with Dr. Lo. The patient is agreeable for outpatient antibiotics and she is aware of infection risk of IV site and promised to keep the area clean and if any signs of redness or pain, this has to be removed. The patient voiced understanding and is agreeable. Plan and coordination of the patient's care discussed in the presence of Assistant Scientist and nurse. CONDITION: Stable SCRIBED BY: ALEX ROGERS, Remote Mortgage Underwriter scribed while in presence of service performed by Dr. RADHA GAMBOA on 09/01/16 ([id number])
[2016-09-01] MEDS: SODIUM CHLORIDE 1,000 ML IV SCH (11:08)
[2016-09-02 07:37] LABS: BASOPHILS % (AUTO) 0.1 % (0.0-3.0); EOSINOPHILS # (AUTO) 0.3 K/ul (0.0-0.7); EOSINOPHILS % (AUTO) 3.1 % (0.0-7.0); HEMATOCRIT 34.6 % (37.0-47.0); HEMOGLOBIN 11.4 g/dl (12.0-16.0); IMMATURE GRANULOCYTE % (AUTO) 0.7 % (0.0-5.0); LYMPHOCYTES # (AUTO) 2.8 K/uL (0.60-3.4); LYMPHOCYTES % (AUTO) 34.4 (10.0-50.0); MEAN CORPUSCULAR HEMOGLOBIN 27.1 pg (27.0-31.0); MEAN CORPUSCULAR HGB CONC 32.9 (31.8-35.4); MEAN CORPUSCULAR VOLUME 82.2 fl (81.0-99.0); MONOCYTES # (AUTO) 0.5 K/uL (0.4-2.0); MONOCYTES % (AUTO) 6.5 (0-10); NEUTROPHILS # (AUTO) 4.5 K/ul (2.0-6.9); NEUTROPHILS % (AUTO) 55.2; PLATELET COUNT 304 10^3/uL (140-440); RED BLOOD COUNT 4.21 10^6/ul (4.20-5.40); WHITE BLOOD COUNT 8.14 K/ul (4.6-10.2)
[2016-09-02 08:04] LABS: ALBUMIN 2.7 g/dL (3.4-5.0); ALBUMIN/GLOBULIN RATIO 0.66; ANION GAP 15.3; BILIRUBIN,TOTAL 0.21 mg/dL (0.00-1.20); BUN/CREATININE RATIO 12.08; CALCIUM 9.2 mg/dL (8.2-10.2); CREATININE 0.91 mg/dL (0.60-1.30); POTASSIUM 4.3 mmol/L (3.5-5.10); TOTAL PROTEIN 6.8 g/dL (6.4-8.2)
[2016-09-02] MEDS ORDERED: ROCEPHIN IM SCH (09:00)
[2016-09-02] MEDS ORDERED: LIDOCAINE 1 % AMP 5 ML (SUTURES) IM SCH (09:00)
[2016-09-02] MEDS: NEURONTIN PO SCH (09:38)
[2016-09-02] MEDS: BACLOFEN PO SCH (09:38)
[2016-09-02] MEDS: NORCO 7.5-325 PO PRN (09:44)
[2016-09-02 10:59] VITALS: BP 147/97; TEMP 98
--- NOTE | 2016-09-07 15:48 | DS ---
DATE OF SERVICE: 09/02/16 FINAL DIAGNOSIS: 1. Right sided acute pyelonephritis 2. Bacteremia from the e-coli, susceptible to the Rocephin 3. Recent TENS unit placement 4. Anemia 5. DJD spine 6. Osteoarthritis 7. History of cervical cancer 8. Total Hysterectomy 9. Spinal fusion DISCHARGE INSTRUCTIONS: Discharge the patient home, followup with the [facility] within 5-7 days. Followup up with Dr. Khan as directed. Dr. Lo as scheduled on September 13. Continue home medications as per the nursing orders. MEDICATIONS AT DISCHARGE: Baclofen 10mg three times a day Vitamin D3 EpiPen Estradiol Flonase Neurontin Loratadine Oxycodone NEW PRESCRIPTIONS: Rocephin IM 1gram daily DIET INSTRUCTIONS: Regular ACTIVITY: As much as tolerated. SMOKING: Current smoker DISEASE SPECIFIC EDUCATION: Pyelonephritis Bacteremia been discussed. Advised to drink a lot of water Antibiotics and risks of diarrhea been discussed Advised to take Probiotics HOSPITAL COURSE: Gay Dixon who is a 37 year old female came to the emergency room with right flank pain and the white count was 19,000. CAT scan of the abdomen and pelvis showed the right pyelonephritis. She was admitted to the hospital and started on the IV fluids, Dilaudid for the pain and Rocephin. The patient continued to have fever. Meanwhile the urine culture came positive for E-coli sensitive to the Rocephin. When the blood cultures came positive which gram negative rods e-coli sensitive for the Rocephin. Continued IV antibiotics were given in review of the bacteremia. Suggested dose of 14 days and we were planning to get outpatient followup with Dr. Lo. Gradually the fever subsided. White count became normal 8.14, hgb was steady 10.11, 10.8 and 11.4 and did not have any complications. Up and about walking. Her urine was getting clear a repeat blood cultures so far are negative. As patient was clinically improved a lot; no fever and normal white count and clear looking urine the patient is being discharged home and will be put on the IM Rocephin for 7-10 days more and followup with infectious disease Dr. Lo and will follow the patient in the [facility] in one week. TIME SPENT: More than 45 minutes today. DELBERT
== END 2016-09-02 12:35 | disposition home or self-care (01) | DRG 690 ==
LOC: ED 06:33 → MEDSURG B 09:19
PROVIDERS: ADMIT Emergency Medicine; ATTEND Emergency Medicine
DX: N10 Acute pyelonephritis (principal); R78.81 Bacteremia; N39.0 Urinary tract infection, site not specified; B96.20 Unspecified Escherichia coli [E. coli] as the cause of diseases classified elsewhere; R50.9 Fever, unspecified; G43.909 Migraine, unspecified, not intractable, without status migrainosus; D64.9 Anemia, unspecified; M54.2 Cervicalgia; M47.9 Spondylosis, unspecified; M15.9 Polyosteoarthritis, unspecified; Z16.24 Resistance to multiple antibiotics; Z96.89 Presence of other specified functional implants; Z98.890 Other specified postprocedural states; Z98.1 Arthrodesis status; Z79.899 Other long term (current) drug therapy
CPT/HCPCS: 36415; 80053; 81001; 82150; 83605; 83690; 85025; 85379; 87040; 87070; 87086; 87186; 96365; 96375; 96376; 99223; 99233; 99239; 99284

== ENCOUNTER 2016-09-03 09:36 | Outpatient (CLI) ==
[2016-09-03] MEDS ORDERED: LIDOCAINE 1 % AMP 5 ML (SUTURES) IM STA (09:46)
[2016-09-03] MEDS ORDERED: ROCEPHIN IM STA (09:46)
[2016-09-03 09:50] VITALS: BP 119/89; TEMP 97.2
== END 2016-09-03 10:08 | disposition home or self-care (01) ==
LOC: OPMED 09:36
PROVIDERS: ATTEND Emergency Medicine
DX: R78.81 Bacteremia (principal); B96.20 Unspecified Escherichia coli [E. coli] as the cause of diseases classified elsewhere
CPT/HCPCS: 96372

== ENCOUNTER 2016-09-04 09:33 | Outpatient (CLI) ==
[2016-09-04] MEDS ORDERED: ROCEPHIN IM STA (09:56)
[2016-09-04] MEDS ORDERED: LIDOCAINE 1 % AMP 5 ML (SUTURES) IM STA (09:56)
[2016-09-04 09:59] VITALS: BP 126/88; TEMP 97.6
== END 2016-09-04 09:34 | disposition home or self-care (01) ==
LOC: OPMED 09:33
PROVIDERS: ATTEND Emergency Medicine
DX: R78.81 Bacteremia (principal); B96.20 Unspecified Escherichia coli [E. coli] as the cause of diseases classified elsewhere
CPT/HCPCS: 96372

== ENCOUNTER 2016-09-05 09:37 | Outpatient (CLI) ==
[2013-01-17 21:56] VITALS: TEMP 98.9
[2016-09-05] MEDS ORDERED: LIDOCAINE 1 % AMP 5 ML (SUTURES) IM STA (09:46)
[2016-09-05] MEDS ORDERED: ROCEPHIN IM STA (09:46)
== END 2016-09-05 09:38 | disposition home or self-care (01) ==
LOC: OPMED 09:37
PROVIDERS: ATTEND Emergency Medicine
DX: R78.81 Bacteremia (principal); B96.20 Unspecified Escherichia coli [E. coli] as the cause of diseases classified elsewhere
CPT/HCPCS: 96372

== ENCOUNTER 2016-09-06 09:40 | Outpatient (CLI) ==
[2016-09-06] MEDS ORDERED: ROCEPHIN IM STA (09:47)
[2016-09-06] MEDS ORDERED: LIDOCAINE 1 % AMP 5 ML (SUTURES) IM STA (09:47)
[2016-09-06 09:54] VITALS: BP 122/78; TEMP 98
== END 2016-09-06 09:41 | disposition home or self-care (01) ==
LOC: OPMED 09:40
PROVIDERS: ATTEND Emergency Medicine
DX: R78.81 Bacteremia (principal); B96.20 Unspecified Escherichia coli [E. coli] as the cause of diseases classified elsewhere
CPT/HCPCS: 96372

== ENCOUNTER 2016-09-07 09:09 | Outpatient (CLI) ==
[2013-01-17 21:56] VITALS: TEMP 98.9
[2016-09-07] MEDS ORDERED: ROCEPHIN IM STA (09:16)
[2016-09-07] MEDS ORDERED: LIDOCAINE 1 % AMP 5 ML (SUTURES) IM STA (09:16)
== END 2016-09-07 09:10 ==
LOC: OPMED 09:09
PROVIDERS: ATTEND Emergency Medicine
DX: R78.81 Bacteremia (principal); B96.20 Unspecified Escherichia coli [E. coli] as the cause of diseases classified elsewhere
CPT/HCPCS: 96372

== ENCOUNTER 2016-09-09 11:37 | Outpatient (CLI) ==
[2013-01-17 21:56] VITALS: TEMP 98.9
[2016-09-09 15:13] LABS: CHOL/HDL RATIO 5.7 (4.5-5.5)
== END 2016-09-09 11:38 | disposition home or self-care (01) ==
LOC: LAB 11:37
PROVIDERS: ATTEND Nurse Practitioner Family
DX: R53.83 Other fatigue (principal); E66.9 Obesity, unspecified
CPT/HCPCS: 36415; 80061; 82306; 84439; 84443

== ENCOUNTER 2016-11-26 08:25 | Emergency (ER) ==
[2016-11-26 08:36] VITALS: BP 139/93; TEMP 98.3; BMI 33.2
[2016-11-26] MEDS ORDERED: TORADOL IM STA (09:04)
--- NOTE | 2016-11-26 09:31 | ED.PDOC ---
General ED Provider: Dr. JEWEL BRADSHAW Chief Complaint: Fall Stated Complaint: patient state she slipped on water falling and twisting her right ankle. Now has right ankle pain and lower back. Still able to bear weight occured 2 days ago Time Seen by Physician: 09:00 Mode of Arrival: Walk-In Information Source: Patient [facility] Nursing and Triage Documentation Reviewed and Agree: Yes Review of Systems - Review Of Systems Constitutional: Reports: No symptoms Eyes: Reports: No symptoms Ears, Nose, Mouth, Throat: Reports: No symptoms Respiratory: Reports: No symptoms Cardiac: Reports: No symptoms GI: Reports: No symptoms : Reports: No symptoms Musculoskeletal: Reports: Back pain, Joint pain (right ankle pain ) Skin: Reports: No symptoms Neurological: Reports: No symptoms Endocrine: Reports: No symptoms Hematologic/Lymphatic: Reports: No symptoms All Other Systems: Reviewed and Negative Past Medical History - Past Medical History Previously Healthy: Yes Endocrine: Reports: None Cardiovascular: Reports: None Respiratory: Reports: None Hematological: Reports: None Gastrointestinal: Reports: None Genitourinary: Reports: None, UTI (yearly-no known predisposing factrs) Neuro/Psych: Reports: Migraine Musculoskeletal: Reports: Back Pain Cancer: Reports: None Last Menstrual Period: hysterectomy Other Pertinent Past Medical History: chronic low back pain - Surgical History General Surgical History: Reports: Hysterectomy, Tonsillectomy, Back Surgery ( lumbar spine), Other (ear tubes) - Family History Family History: Reports: Unknown - Social History Smoking Status: Current every day smoker Hx Substance Use: No Alcohol Screening: None - Immunizations Tetanus Shot up to Date: Yes Physical Exam - Physical Exam Appearance: Well-appearing, No pain distress, Well-nourished Eyes: CRAIG, EOMI, Conjunctiva clear ENT: Ears normal, Nose normal, Oropharynx normal Respiratory: Airway patent, Breath sounds clear, Breath sounds equal, Respirations nonlabored Cardiovascular: RRR, Pulses normal, No rub, No murmur GI/: Soft, Nontender, No masses, Bowel sounds normal, No Organomegaly Musculoskeletal: Normal strength, No edema, No calf tenderness, Limited ROM Skin: Warm, Dry, Normal color Neurological: Sensation intact, Motor intact, Reflexes intact, Cranial nerves intact, Alert, Oriented Psychiatric: Affect appropriate, Mood appropriate Critical Care Note - Critical Care Note Total Time (mins): 0 Course - Course Orders, Labs, Meds: Orders Category Date Time Status RACHELL [ED RACHELL WRAP] .ONCE EMERGENCY 11/26/16 10:11 Active Ketorolac Tromethamine [Toradol] MEDS 11/26/16 09:04 Discontinued 60 mg IM ONCE STA ANKLE, RIGHT MIN 3 VIEWS Stat RADS 11/26/16 09:04 Completed LUMBAR SPINE, MIN 4 VIEWS Stat RADS 11/26/16 09:06 Completed Medications Discontinued Medications Generic Name Dose Route Start Last Admin Trade Name Divya PRN Reason Stop Dose Admin Ketorolac Tromethamine 60 mg 11/26/16 09:04 11/26/16 09:23 Toradol IM 11/26/16 09:05 60 mg ONCE STA Administration Vital Signs: Temp Pulse Resp BP Pulse Ox 11/26/16 08:26 98.3 F 87 16 139/93 H 98 Departure - Departure Time of Disposition: 10:01 Disposition: HOME SELF-CARE Discharge Problem: Back sprain Ankle sprain Qualifiers: Encounter type: initial encounter Involved ligament of ankle: unspecified ligament Laterality: right Qualifier Code: (S93.401A) Sprain of unspecified ligament of right ankle, initial encounter Instructions: Lower Back Exercises (ED), Ankle Sprain (ED) Condition: Fair Pt referred to PMD for follow-up: Yes Additional Instructions: Take pain medications as prescribed Follow up with PCP in 3 days Allergies/Adverse Reactions: Allergies bacitracin [From Neosporin ([id number])] Adverse Reaction (Verified 11/26/16 08:35) bacitracin zinc [From Neosporin ([id number])] Adverse Reaction (Verified 08:35) diphenhydramine HCl [From Benadryl] Adverse Reaction (Verified 11/26/16 08:35) increases heart rate above 200 levalbuterol HCl [From Xopenex] Adverse Reaction (Verified 11/26/16 08:35) increases heart rate over 200, painful breathing neomycin sulfate [From Neosporin ([id number])] Adverse Reaction (Verified 08:35) polymyxin B [From Neosporin ([id number])] Adverse Reaction (Verified 08:35) prednisone Adverse Reaction (Verified 11/26/16 08:35) Fever causes high fever, rash, redness Polymyxin B Adverse Reaction (Uncoded 11/26/16 08:36) Home Medications: Ambulatory Orders Gabapentin 300 mg PO TID 03/17/15 Epinephrine [Epipen 2-Bjorn] 0.3 mg IJ PRN PRN #1 ml 02/10/16 Cholecalciferol (Vitamin D3) [Vitamin D] 1,000 unit PO DAILY 04/19/16 Estradiol 2 mg PO DAILY 04/19/16 Loratadine 10 mg PO DAILY 07/18/16 Oxycodone-Acetaminophen 10-325 [Percocet 10-325] 1 tab PO TID 08/28/16 Transfer Form Completed: Yes Disposition Discussed With: Patient
--- NOTE | 2016-11-26 09:49 | DI ---
EXAM: Right ankle. Three-view HISTORY: Ankle sprain COMPARISON: None FINDINGS: No fracture or dislocation. Small plantar calcaneal spur and mild posterior calcaneal en thesopathy. Ankle mortise is symmetric. No focal soft tissue abnormality. IMPERSSION: No fracture or dislocation.
--- NOTE | 2016-11-26 10:11 | DI ---
EXAM: Lumbar spine five views HISTORY: Fall with back pain COMPARISON: None TECHNIQUE: Five views lumbar spine were performed FINDINGS: There is a spinal stimulator that is incompletely imaged. Sacroiliac joints intact. Sac ral arcuate intact. Vertebral bodies normal height. No fracture. No subluxation. There is interb cassidy spacer at L5-S1. Remainder of the intervertebral disc spaces normal in height. There is mild m ultilevel facet arthrosis. IMPRESSION: 1. No fracture or subluxation. 2. Mild facet arthrosis. Interbody spacer L5-S1.
== END 2016-11-26 10:20 | disposition home or self-care (01) ==
LOC: ED 08:25
DX: S93.401A Sprain of unspecified ligament of right ankle, initial encounter (principal); S33.5XXA Sprain of ligaments of lumbar spine, initial encounter; W01.0XXA Fall on same level from slipping, tripping and stumbling without subsequent striking against object, initial encounter
CPT/HCPCS: 96372; 99283

== ENCOUNTER 2017-03-01 18:08 | Emergency (ER) ==
[2017-03-01 18:15] VITALS: BP 114/84; TEMP 99.4; BMI 28.1
[2017-03-01] MEDS ORDERED: DECADRON 4 MG/ML SDV IM STA (18:26)
[2017-03-01] MEDS ORDERED: LIDOCAINE 1 % AMP 5 ML (SUTURES) IM STA (18:26)
[2017-03-01] MEDS ORDERED: ROCEPHIN IM STA (18:26)
--- NOTE | 2017-03-01 18:29 | ED.PDOC ---
General ED Provider: Dr. LOUIS PANTOJA Chief Complaint: Respiratory Complaint Stated Complaint: COUGH , SORE THROAT Time Seen by Physician: 18:14 (SEEN WITH SWETA PA STUDENT AT ALL TIMES ) Mode of Arrival: Walk-In Information Source: Patient Exam Limitations: No limitations Nursing and Triage Documentation Reviewed and Agree: Yes EENT Complaint Exam - Throat Complaint/Exam Symptoms Are: Still present Timimg: Constant Initial Severity: Moderate Current Severity: Moderate Alleviating: Reports: None Associated Signs and Symptoms: Reports: Cough, Nasal congestion. Denies: Fever , Dysphagia, Drooling, Foreign body sensation, Chills, Wheezing, Hoarseness, Sinus discomfort, Difficulty breathing, Lethargy, Irritability, Decreased activity, Vomiting, Diarrhea, Decreased hearing, Ear drainage Uvula Midline: Yes Chata-tonsillar Fluctuence: No Scarlatinaform Rash Present: No Stridor Present: No Sinus Tenderness Present: No Tonsillar Hypertrophy Present: No Tonsillar Exudate Present: No Chata-tonsillar Swelling Present: No Adenopathy Present: No Splenomegaly Present: No Differential Diagnoses: Pharyngitis Review of Systems - Review Of Systems Constitutional: Reports: Malaise Eyes: Reports: No symptoms Ears, Nose, Mouth, Throat: Reports: Throat pain Respiratory: Reports: Cough Cardiac: Reports: No symptoms GI: Reports: No symptoms : Reports: No symptoms Musculoskeletal: Reports: No symptoms Skin: Reports: No symptoms Neurological: Reports: No symptoms Endocrine: Reports: No symptoms Hematologic/Lymphatic: Reports: No symptoms All Other Systems: Reviewed and Negative Past Medical History - Past Medical History Previously Healthy: Yes Endocrine: Reports: None Cardiovascular: Reports: None Respiratory: Reports: None Hematological: Reports: None Gastrointestinal: Reports: None Genitourinary: Reports: None, UTI (yearly-no known predisposing factrs) Neuro/Psych: Reports: Migraine Musculoskeletal: Reports: Back Pain Cancer: Reports: None Last Menstrual Period: n/a Other Pertinent Past Medical History: chronic low back pain - Surgical History General Surgical History: Reports: Hysterectomy, Tonsillectomy, Back Surgery ( lumbar spine), Other (ear tubes) - Family History Family History: Reports: Unknown - Social History Smoking Status: Current every day smoker Hx Substance Use: No Alcohol Screening: None Physical Exam - Physical Exam Appearance: Well-appearing, No pain distress, Well-nourished Eyes: CRAIG, EOMI, Conjunctiva clear ENT: Ears normal, Nose normal, Oropharynx normal Respiratory: Airway patent, Breath sounds clear, Breath sounds equal, Respirations nonlabored Cardiovascular: RRR, Pulses normal, No rub, No murmur GI/: Soft, Nontender, No masses, Bowel sounds normal, No Organomegaly Musculoskeletal: Normal strength, ROM intact, No edema, No calf tenderness Skin: Warm, Dry, Normal color Neurological: Sensation intact, Motor intact, Reflexes intact, Cranial nerves intact, Alert, Oriented Psychiatric: Affect appropriate, Mood appropriate Critical Care Note - Critical Care Note Total Time (mins): 0 Course - Course Orders, Labs, Meds: Orders Category Date Time Status Ceftriaxone Sodium [Rocephin] MEDS 03/01/17 18:26 Stat 1 gm IM ONCE STA Dexamethasone 4 mg/ml Inj [Decadron 4 mg/ml Sdv] MEDS 03/01/17 18:26 Stat 2 mg IM ONCE STA Lidocaine HCl/Pf [Lidocaine 1 % Amp 5 ml (Sutures)] MEDS 03/01/17 18:26 Stat 2.1 ml IM ONCE STA Medications Generic Name Dose Route Start Last Admin Trade Name Divya PRN Reason Stop Dose Admin Ceftriaxone Sodium 1 gm 03/01/17 18:26 Rocephin IM 03/01/17 18:27 ONCE STA Dexamethasone Sodium Phosphate 2 mg 03/01/17 18:26 Decadron 4 Mg/Ml Sdv IM 03/01/17 18:27 ONCE STA Lidocaine HCl 2.1 ml 03/01/17 18:26 Lidocaine 1 % Amp 5 Ml (Sutures) IM 03/01/17 18:27 ONCE STA Vital Signs: Temp Pulse Resp BP Pulse Ox 03/01/17 18:11 99.4 F 85 14 114/84 97 Departure - Departure Time of Disposition: 18:29 Disposition: HOME SELF-CARE Discharge Problem: Pharyngitis Qualifiers: Pharyngitis/tonsillitis etiology: unspecified etiology Qualifier Code: (J02.9) Acute pharyngitis, unspecified Instructions: Pharyngitis (ED) Condition: Good Pt referred to PMD for follow-up: No Additional Instructions: Please call your Family Physician as soon as possible to schedule a follow-up appointment. Allergies/Adverse Reactions: Allergies bacitracin [From Neosporin ([id number])] Adverse Reaction (Verified 03/01/17 18:15) bacitracin zinc [From Neosporin ([id number]-mym-[id number])] Adverse Reaction (Verified 18:15) diphenhydramine HCl [From Benadryl] Adverse Reaction (Verified 03/01/17 18:15) increases heart rate above 200 levalbuterol HCl [From Xopenex] Adverse Reaction (Verified 03/01/17 18:15) increases heart rate over 200, painful breathing neomycin sulfate [From Neosporin ([id number]-[id number])] Adverse Reaction (Verified 18:15) polymyxin B [From Neosporin ([id number]-ziy-[id number])] Adverse Reaction (Verified 18:15) prednisone Adverse Reaction (Verified 03/01/17 18:15) Fever causes high fever, rash, redness Polymyxin B Adverse Reaction (Uncoded 11/26/16 08:36) Home Medications: Ambulatory Orders Gabapentin 300 mg PO TID 03/17/15 Epinephrine [Epipen 2-Bjorn] 0.3 mg IJ PRN PRN #1 ml 02/10/16 Loratadine 10 mg PO DAILY 07/18/16 Hydrocodone Bit/Acetaminophen [[place]enn 10-325] 1 tab PO TID 03/01/17 Methocarbamol [Robaxin] 500 mg PO TID PRN 03/01/17 Multivitamin 1 cap PO DAILY 03/01/17 Disposition Discussed With: Patient
[2017-03-01 19:04] LABS: BASOPHILS % (AUTO) 0.1 % (0.0-3.0); EOSINOPHILS # (AUTO) 0.1 K/ul (0.0-0.7); EOSINOPHILS % (AUTO) 0.7 % (0.0-7.0); HEMATOCRIT 39.9 % (37.0-47.0); HEMOGLOBIN 13.4 g/dl (12.0-16.0); IMMATURE GRANULOCYTE % (AUTO) 0.3 % (0.0-5.0); MEAN CORPUSCULAR HEMOGLOBIN 28.3 pg (27.0-31.0); MEAN CORPUSCULAR HGB CONC 33.6 (31.8-35.4); MEAN CORPUSCULAR VOLUME 84.2 fl (81.0-99.0); MONOCYTES # (AUTO) 0.9 K/uL (0.4-2.0); MONOCYTES % (AUTO) 6.2 (0-10); NEUTROPHILS # (AUTO) 11.3 K/ul (2.0-6.9); NEUTROPHILS % (AUTO) 78.7; PLATELET COUNT 212 10^3/uL (140-440); RED BLOOD COUNT 4.74 10^6/ul (4.20-5.40); WHITE BLOOD COUNT 14.33 K/ul (4.6-10.2)
[2017-03-01 19:21] LABS: ALBUMIN 3.6 g/dL (3.4-5.0); ANION GAP 13.9; BILIRUBIN,TOTAL 0.64 mg/dL (0.00-1.20); CALCIUM 9.3 mg/dL (8.2-10.2); POTASSIUM 3.9 mmol/L (3.5-5.10); TOTAL PROTEIN 7.2 g/dL (6.4-8.2)
--- NOTE | 2017-03-01 19:58 | CT ---
Exam: CT of the chest without contrast History: Cough Technique: [address] of the chest without intravascular contrast FINDINGS: Lung windows show no pulmonary parenchymal abnormality. Heart, great vessels and pericar dium appear normal. No acute findings of the chest wall soft tissues or bony thorax. Stimulator le ads centered at T7-T8 level. No acute findings of the upper abdomen. Impression: 1. Normal CT of the chest without contrast.
--- NOTE | 2017-03-01 20:01 | CT ---
Exam: CT scan of the neck without contrast. Date: 03/01/2017. Comparison: None. HISTORY: Sore throat and left ear ache with yellow drainage. TECHNIQUE: Helical scan of the neck was performed without contrast. FINDINGS: The lower ethmoid, maxillary and sphenoid sinuses are clear. The mastoid air cells are a lso clear. The basilar calvarium and mandible are intact. The cervical and thoracic spine to the le luis e of the anna appear within normal limits. The visualized lung parenchyma is within normal limi ts. The parapharyngeal button sawyer spaces are normal. The parotid and submandibular glands are normal. The tonsils, tongue base, epiglottis and vallecula are normal. Vocal cords are symmetric. Limited views of the thyroid gland are normal. The prevertebral and carotid spaces are normal. There are b ilateral subcentimeter level II and level five lymph nodes. Impression: The study was performed without IV contrast which limits evaluation of the vasculature and soft tissue. No suspicious masses are observed. There is bilateral subcentimeter cervical lymp hadenopathy, but they do not achieve a size of pathologic significance.
[2017-03-06 16:51] LABS: IGG P18 AB Absent (.); IGG P23 AB Absent (.); IGG P28 AB Absent (.); IGG P30 AB Absent (.); IGG P39 AB Absent (.); IGG P41 AB Absent (.); IGG P45 AB Absent (.); IGG P58 AB Absent (.); IGG P66 AB Absent (.); IGG P93 AB Absent (.); IGM P39 AB Absent (.); IGM P41 AB Present (.)
[2017-03-07 07:10] LABS: LYME IGG WB INTERP Negative (.); LYME IGM WB INTERP Negative (.)
== END 2017-03-01 20:27 | disposition home or self-care (01) ==
LOC: ED 18:08
DX: J02.9 Acute pharyngitis, unspecified (principal); R05 Cough; F17.210 Nicotine dependence, cigarettes, uncomplicated
CPT/HCPCS: 36415; 80053; 85025; 86617; 87040; 87651; 87798; 87880; 96372; 99283

== ENCOUNTER 2017-03-14 12:36 | Outpatient (CLI) ==
[2013-01-17 21:56] VITALS: TEMP 98.9
[2017-03-14 14:39] LABS: ALBUMIN 4.2 g/dL (3.4-5.0); ALBUMIN/GLOBULIN RATIO 0.95; ANION GAP 18.8; BILIRUBIN,TOTAL 0.25 mg/dL (0.00-1.20); BUN/CREATININE RATIO 11.57; CALCIUM 10.3 mg/dL (8.2-10.2); CHOL/HDL RATIO 5.9 (4.5-5.5); CREATININE 1.21 mg/dL (0.60-1.30); POTASSIUM 3.8 mmol/L (3.5-5.10); TOTAL PROTEIN 8.6 g/dL (6.4-8.2)
== END 2017-03-14 12:37 | disposition home or self-care (01) ==
LOC: LAB 12:36
PROVIDERS: ATTEND Nurse Practitioner Family
DX: E78.5 Hyperlipidemia, unspecified (principal); I10 Essential (primary) hypertension; E55.9 Vitamin D deficiency, unspecified
CPT/HCPCS: 36415; 80053; 80061; 82306

== ENCOUNTER 2017-04-21 13:42 | Outpatient (CLI) ==
[2013-01-17 21:56] VITALS: TEMP 98.9
--- NOTE | 2017-04-24 09:02 | MAMMO ---
EXAM: Bilateral digital screening mammogram History: Baseline screening Findings: MLO and CC views of bilateral breasts demonstrate scattered fibroglandular breast parenchy ma. Nodular density within the upper-outer quadrant of the right breast. Nodular density within the anterior central left breast. There are no suspicious microcalcifications. Impression: Indeterminate bilateral nodular densities. Recommend further evaluation with spot compr ession views and possible ultrasound. BIRADS 0
== END 2017-04-21 13:43 | disposition home or self-care (01) ==
LOC: RAD 13:42
PROVIDERS: ATTEND Nurse Practitioner Family
DX: Z12.31 Encounter for screening mammogram for malignant neoplasm of breast (principal)
CPT/HCPCS: 77067

== ENCOUNTER 2017-04-24 10:20 | Outpatient (CLI) ==
[2013-01-17 21:56] VITALS: TEMP 98.9
--- NOTE | 2017-04-24 11:28 | DI ---
EXAM: Three views of the lumbar spine HISTORY: Back pain with left-sided sciatica. COMPARISON: Lumbar spine 11/26/2016 CT lumbar spine 08/28/2016 FINDINGS: Spinal stimulator wire is present. Surgical clips in right upper quadrant. The vertebral bodies demonstrate no acute compression fracture or subluxation. Disc spacer material and degenerati ve change noted L5-S1. There is mild facet arthropathy at L5-S1. Soft tissues are unremarkable. IMPRESSION: 1. No acute abnormality or compression fracture/subluxation of the lumbosacral spine. 2. Degenerative change and L5-S1 with interbody disc spacer at this level.
== END 2017-04-24 10:21 | disposition home or self-care (01) ==
LOC: RAD 10:20
PROVIDERS: ATTEND Emergency Medicine
DX: M54.42 Lumbago with sciatica, left side (principal); M54.41 Lumbago with sciatica, right side; G89.29 Other chronic pain

== ENCOUNTER 2017-04-28 10:03 | Outpatient (CLI) ==
[2013-01-17 21:56] VITALS: TEMP 98.9
--- NOTE | 2017-04-28 11:02 | US ---
EXAM: Bilateral breast ultrasound. History: Bilateral breast masses. Technique: Multiple sonographic images through the bilateral breast were obtained. Color duplex Dop pler was used to interrogate vascular flow. Findings: At 10 o'clock within the right breast there is a 0.6 cm x 0.2 cm x 0.6 cm cyst cluster. This correlat es with mammography. Within the left breast at 12 o'clock retroareolar region there is a 0.5 cm x 0.2 cm x 0.5 cm cyst clu ster. This correlates with mammography. Impression: Probably benign bilateral breast cyst clusters. Recommend 6-month follow-up mammogram a nd ultrasound to document stability. BIRADS 3
--- NOTE | 2017-04-28 11:05 | MAMMO ---
EXAM: Bilateral digital diagnostic mammogram History: Bilateral breast masses. Comparison: Bilateral mammogram 04/21/2017 Findings: Bilateral breast density is scattered. Additional spot compression views of bilateral inez sts confirm the bilateral breast nodules in question. There are no suspicious microcalcifications. Impression: Indeterminate bilateral breast nodules. Recommend further evaluation with bilateral katie ast ultrasound. BIRADS 0
== END 2017-04-28 10:04 | disposition home or self-care (01) ==
LOC: RAD 10:03
PROVIDERS: ATTEND Nurse Practitioner Family
DX: R92.8 Other abnormal and inconclusive findings on diagnostic imaging of breast (principal); R93.8 Abnormal findings on diagnostic imaging of other specified body structures

== ENCOUNTER 2017-07-07 21:15 | Emergency (ER) ==
[2017-07-07] MEDS ORDERED: ZOFRAN 4 MG/2 ML IVP STA (21:33)
[2017-07-07] MEDS ORDERED: SODIUM CHLORIDE 1,000 ML IV STA (21:33)
[2017-07-07 21:39] VITALS: BP 110/80; TEMP 98; BMI 31.1
[2017-07-07 21:41] LABS: BILIRUBIN,URINE 1+ (NEGATIVE); KETONES,URINE Negative (NEGATIVE); LEUKOCYTE ESTERASE ,URINE Negative (NEGATIVE); NITRITE,URINE Negative (NEGATIVE); PROTEIN,URINE 1+ (NEGATIVE); URINE, BLOOD Negative (NEGATIVE)
[2017-07-07 21:42] LABS: BASOPHILS % (AUTO) 0.2 % (0.0-3.0); EOSINOPHILS % (AUTO) 0.2 % (0.0-7.0); HEMATOCRIT 44.7 % (37.0-47.0); HEMOGLOBIN 14.7 g/dl (12.0-16.0); IMMATURE GRANULOCYTE % (AUTO) 0.4 % (0.0-5.0); LYMPHOCYTES # (AUTO) 1.3 K/uL (0.60-3.4); MEAN CORPUSCULAR HEMOGLOBIN 28.4 pg (27.0-31.0); MEAN CORPUSCULAR HGB CONC 32.9 (31.8-35.4); MEAN CORPUSCULAR VOLUME 86.3 fl (81.0-99.0); MONOCYTES # (AUTO) 0.5 K/uL (0.4-2.0); NEUTROPHILS # (AUTO) 8.7 K/ul (2.0-6.9); NEUTROPHILS % (AUTO) 82.2; PLATELET COUNT 237 10^3/uL (140-440); RED BLOOD COUNT 5.18 10^6/ul (4.20-5.40); WHITE BLOOD COUNT 10.55 K/ul (4.6-10.2)
[2017-07-07 21:44] LABS: ADD URINE MICROSCOPIC YES
[2017-07-07 21:50] LABS: FLU INTERNAL QC INTERNAL QC VALID; RAPID FLU A NEGATIVE (NEGATIVE); RAPID FLU B NEGATIVE (NEGATIVE)
[2017-07-07 22:02] LABS: ALBUMIN 3.5 g/dL (3.4-5.0); ALBUMIN/GLOBULIN RATIO 0.85; ANION GAP 16.7; BILIRUBIN,TOTAL 0.57 mg/dL (0.00-1.20); BUN/CREATININE RATIO 15.68; CALCIUM 9.3 mg/dL (8.2-10.2); CREATININE 1.02 mg/dL (0.60-1.30); POTASSIUM 3.7 mmol/L (3.5-5.10); TOTAL PROTEIN 7.6 g/dL (6.4-8.2)
--- NOTE | 2017-07-07 22:29 | CT ---
EXAM: CT of the abdomen and pelvis without contrast. HISTORY: Nausea and vomiting. PROCEDURE: Contiguous axial CT images of the abdomen and pelvis without contrast with coronal and sa gittal reformats. FINDINGS: The liver is normal in appearance. The gallbladder is surgically absent. The pancreas, sp rashid, adrenal glands and kidneys are normal in appearance. The abdominal aorta is normal in appearan ce. The visualized loops of bowel and appendix are normal in appearance. No free fluid or free air in the abdomen or pelvis. The bladder is adequately filled with no abnormality identified. The uterus is surgically absent. There is a dorsal column stimulator. Impression: Negative CT abdomen and pelvis. Cholecystectomy. Hysterectomy.
--- NOTE | 2017-07-07 22:42 | ED.PDOC ---
General ED Provider: Dr. PAT VERGARA-ER Chief Complaint: Nausea/Vomiting Stated Complaint: vazquez had vomiting and diarrhea Time Seen by Physician: 21:20 Mode of Arrival: Walk-In Information Source: Patient Exam Limitations: No limitations [facility] Nursing and Triage Documentation Reviewed and Agree: Yes GI Complaint Exam - Vomiting/Diarrhea Complaint/Exam Onset/Duration: a few hours Symptoms Are: Still present Initial Severity: Mild Current Severity: Mild Character of Vomiting: Reports: Non-bilious Character of Diarrhea: Reports: Watery Aggravating: Reports: None Alleviating: Reports: None Associated Signs and Symptoms: Denies: Dizziness, Light-headedness, Melena, Hematemesis, Fever, Abdominal pain, Cramping Recent Positive Test: No Use of Oral Contraceptives: No Use of Depoprovera: No Compliant With Contraceptive Use: No Abdominal Findings: Present: None Kussmaul Respirations Present: No Differential Diagnoses: Dehydration, Viral Gastroenteritis Review of Systems - Review Of Systems Constitutional: Reports: No symptoms Eyes: Reports: No symptoms Ears, Nose, Mouth, Throat: Reports: No symptoms Respiratory: Reports: No symptoms Cardiac: Reports: No symptoms GI: Reports: Diarrhea, Nausea, Vomiting : Reports: No symptoms Musculoskeletal: Reports: No symptoms Skin: Reports: No symptoms Neurological: Reports: No symptoms Endocrine: Reports: No symptoms Hematologic/Lymphatic: Reports: No symptoms All Other Systems: Reviewed and Negative Past Medical History - Past Medical History Previously Healthy: Yes Endocrine: Reports: None Cardiovascular: Reports: None Respiratory: Reports: None Hematological: Reports: None Gastrointestinal: Reports: None Genitourinary: Reports: None, UTI (yearly-no known predisposing factrs) Neuro/Psych: Reports: Migraine Musculoskeletal: Reports: Back Pain Cancer: Reports: None Last Menstrual Period: 2009 Other Pertinent Past Medical History: chronic low back pain - Surgical History General Surgical History: Reports: Hysterectomy, Tonsillectomy, Back Surgery ( lumbar spine), Other (ear tubes) - Family History Family History: Reports: Unknown - Social History Smoking Status: Current every day smoker, Heavy tobacco smoker Hx Substance Use: No Alcohol Screening: Occasionally - Immunizations Tetanus Shot up to Date: Yes Physical Exam - Physical Exam Appearance: Well-appearing, No pain distress, Well-nourished Eyes: CRAIG, EOMI, Conjunctiva clear ENT: Ears normal, Nose normal, Oropharynx normal Neck: Supple Respiratory: Airway patent, Breath sounds clear, Breath sounds equal, Respirations nonlabored Cardiovascular: RRR, Pulses normal, No rub, No murmur GI/: Soft Musculoskeletal: Normal strength Skin: Warm Neurological: Sensation intact, Motor intact, Reflexes intact, Cranial nerves intact, Alert, Oriented Psychiatric: Affect appropriate, Mood appropriate Interpretation - Radiology Interpretation Radiology Interpretation By: Radiologist Radiology Results: Negative Exam Interpreted: CT Scan Re-Evaluation - Re-Evaluation Time of Re-Evaluation: 22:41 Status: Improved Vital Signs Stable: Yes Pain Level: 0 Appearance: NAD Skin: Warm and Dry Neuro: Alert and Oriented X3 CV: RRR Critical Care Note - Critical Care Note Total Time (mins): 0 Course - Course Hematology/Chemistry: 07/07/17 21:39 07/07/17 21:39 Orders, Labs, Meds: Lab Review 07/07/17 07/07/17 07/07/17 21:25 21:25 21:39 WBC 10.55 H RBC 5.18 Hgb 14.7 Hct 44.7 MCV 86.3 MCH 28.4 MCHC 32.9 RDW Coeff of Veronica 13.3 Plt Count 237 Immature Gran % (Auto) 0.4 Neut % (Auto) 82.2 Lymph % (Auto) 12.0 [place] % (Auto) 5.0 Eos % (Auto) 0.2 Baso % (Auto) 0.2 Immature Gran # (Auto) 0.0 Neut # 8.7 H Lymph # 1.3 [place] # 0.5 Eos # 0.0 Baso # 0.0 Sodium Potassium Chloride Carbon Dioxide Anion Gap BUN Creatinine Estimated GFR (MDRD) BUN/Creatinine Ratio Glucose Calcium Total Bilirubin AST ALT Alkaline Phosphatase Total Protein Albumin Globulin Albumin/Globulin Ratio Urine Color Yellow Urine Clarity Slightly Urine pH 6.0 Ur Specific [place] >=1.030 Urine Protein 1+ Urine Glucose (UA) Negative Urine Ketones Negative Urine Blood Negative Urine Nitrite Negative Urine Bilirubin 1+ Urine Urobilinogen 1.0 Ur Leukocyte Esterase Negative Ur Squamous Epith Cells Not present Urine Mucus 3+ Influenza A (Rapid) Negative Influenza B (Rapid) Negative 07/07/17 21:39 WBC RBC Hgb Hct MCV MCH MCHC RDW Coeff of Veronica Plt Count Immature Gran % (Auto) Neut % (Auto) Lymph % (Auto) [place] % (Auto) Eos % (Auto) Baso % (Auto) Immature Gran # (Auto) Neut # Lymph # [place] # Eos # Baso # Sodium 140 Potassium 3.7 Chloride 104 Carbon Dioxide 23 Anion Gap 16.7 BUN 16 Creatinine 1.02 Estimated GFR (MDRD) 62.00 BUN/Creatinine Ratio 15.68 Glucose 95 Calcium 9.3 Total Bilirubin 0.57 AST 14 L ALT 19 Alkaline Phosphatase 83 Total Protein 7.6 Albumin 3.5 Globulin 4.1 Albumin/Globulin Ratio 0.85 Urine Color Urine Clarity Urine pH Ur Specific [place] Urine Protein Urine Glucose (UA) Urine Ketones Urine Blood Urine Nitrite Urine Bilirubin Urine Urobilinogen Ur Leukocyte Esterase Ur Squamous Epith Cells Urine Mucus Influenza A (Rapid) Influenza B (Rapid) Orders Category Date Time Status IV [ED IV/MEDIPORT/POWERPORT] .ONCE EMERGENCY 07/07/17 21:32 Active CBC W/ AUTO DIFF Stat LAB 07/07/17 21:39 Completed CMP [COMPREHENSIVE METABOLIC PANEL] Stat LAB 07/07/17 21:39 Completed FLU A & B RAPID TEST [RAPID FLU A/B] Stat LAB 07/07/17 21:25 Completed MOLECULAR GROUP A STREP Stat LAB 07/07/17 21:25 Results STREP SCREEN Stat LAB 07/07/17 21:25 Results UA [URINALYSIS C & S IF INDICATED] Stat LAB 07/07/17 21:25 Completed 0.9 % Sodium Chloride [Saline Flush] MEDS 07/07/17 21:32 Ordered 1 syr IVF PRN PRN Ondansetron HCl/Pf [Zofran 4 mg/2 ml] MEDS 07/07/17 21:33 Discontinued 4 mg IVP ONCE STA Sodium Chloride 0.9% [Sodium Chloride] 1,000 ml MEDS 07/07/17 21:[address] ABDOMEN/PELVIS WO CONTRAST Stat RADS 07/07/17 21:57 Completed Medications Generic Name Dose Route Start Last Admin Trade Name Freq PRN Reason Stop Dose Admin Sodium Chloride 1 syr 07/07/17 21:32 07/07/17 21:43 Saline Flush IVF 1 syr PRN PRN Administration To flush IV Discontinued Medications Generic Name Dose Route Start Last Admin Trade Name Freq PRN Reason Stop Dose Admin Sodium Chloride 1,000 mls @ 1,000 mls/hr 07/07/17 21:33 07/07/17 21:46 Sodium Chloride IV 07/07/17 22:32 1,000 mls/hr BOLUS STA Administration Ondansetron HCl 4 mg 07/07/17 21:33 07/07/17 21:41 Zofran 4 Mg/2 Ml IVP 07/07/17 21:34 4 mg ONCE STA Administration Vital Signs: Temp Pulse Resp BP Pulse Ox 07/07/17 21:15 98 F 104 H 18 110/80 98 Departure - Departure Time of Disposition: 22:41 Disposition: HOME SELF-CARE Discharge Problem: Diarrhea Instructions: Gastroenteritis (ED) Condition: Good Pt referred to PMD for follow-up: Yes Additional Instructions: zofran 4mg q 4hrs prn #4--fluids--avoid dairy for 2 days--rtn prn Allergies/Adverse Reactions: Allergies bacitracin [From Neosporin ([id number])] Adverse Reaction (Unverified 14:48) bacitracin zinc [From Neosporin ([id number])] Adverse Reaction (Unverified 14:48) diphenhydramine HCl [From Benadryl] Adverse Reaction (Unverified 03/28/17 14:48) increases heart rate above 200 levalbuterol HCl [From Xopenex] Adverse Reaction (Unverified 03/28/17 14:48) increases heart rate over 200, painful breathing neomycin sulfate [From Neosporin ([id number]-vci-[id number])] Adverse Reaction (Unverified 03/28/17 14:48) polymyxin B [From Neosporin (iix-wmp-[id number])] Adverse Reaction (Unverified 14:48) prednisone Adverse Reaction (Unverified 03/28/17 14:48) Fever causes high fever, rash, redness Polymyxin B Adverse Reaction (Uncoded 11/26/16 08:36) Home Medications: Ambulatory Orders Gabapentin 300 mg PO TID 03/17/15 Epinephrine [Epipen 2-Bjorn] 0.3 mg IJ PRN PRN #1 ml 02/10/16 Loratadine 10 mg PO DAILY 07/18/16 Hydrocodone Bit/Acetaminophen [[place] 10-325] 1 tab PO TID 03/01/17 Methocarbamol [Robaxin] 500 mg PO TID PRN 03/01/17 Multivitamin 1 cap PO DAILY 03/01/17 Baclofen 10 mg PO TID #90 tab-cap 03/07/17 Lisinopril 10 mg PO 1 tab every other da 04/24/17 Disposition Discussed With: Patient
== END 2017-07-07 22:45 | disposition home or self-care (01) ==
LOC: ED 21:15
DX: R11.2 Nausea with vomiting, unspecified (principal); R19.7 Diarrhea, unspecified; F17.210 Nicotine dependence, cigarettes, uncomplicated
CPT/HCPCS: 36415; 80053; 81001; 85025; 87651; 87804; 87880; 96361; 96374; 96375; 99283

== ENCOUNTER 2017-07-23 09:39 | Emergency (ER) ==
[2017-07-23 09:46] VITALS: BP 150/87; TEMP 96.8; BMI 31.1
[2017-07-23] MEDS ORDERED: MOTRIN PO STA (10:39)
--- NOTE | 2017-07-23 10:39 | ED.PDOC ---
General ED Provider: Dr. JEWEL BRADSHAW Chief Complaint: Ankle Pain/Injury Stated Complaint: Reports twisteing ijury 2 days ago. Unable to bear weight. Took norco at 2 am but has not help. Time Seen by Physician: 10:38 Mode of Arrival: Walk-In Information Source: Patient Exam Limitations: No limitations [facility] and Triage Documentation Reviewed and Agree: Yes Review of Systems - Review Of Systems Constitutional: Reports: No symptoms Eyes: Reports: No symptoms Ears, Nose, Mouth, Throat: Reports: No symptoms Respiratory: Reports: No symptoms Cardiac: Reports: No symptoms GI: Reports: No symptoms : Reports: No symptoms Musculoskeletal: Reports: Joint pain Skin: Reports: No symptoms Neurological: Reports: No symptoms Endocrine: Reports: No symptoms Hematologic/Lymphatic: Reports: No symptoms All Other Systems: Reviewed and Negative Past Medical History - Past Medical History Previously Healthy: Yes Endocrine: Reports: None Cardiovascular: Reports: None Respiratory: Reports: None Hematological: Reports: None Gastrointestinal: Reports: None Genitourinary: Reports: None, UTI (yearly-no known predisposing factrs) Neuro/Psych: Reports: Migraine Musculoskeletal: Reports: Back Pain Cancer: Reports: None Last Menstrual Period: n/a Other Pertinent Past Medical History: chronic low back pain - Surgical History General Surgical History: Reports: Hysterectomy, Tonsillectomy, Back Surgery ( lumbar spine), Other (ear tubes) - Family History Family History: Reports: Unknown - Social History Smoking Status: Current every day smoker Hx Substance Use: No Alcohol Screening: None Physical Exam - Physical Exam Appearance: Well-appearing Pain Distress: Severe Neck: Supple Respiratory: Airway patent, Breath sounds clear, Breath sounds equal, Respirations nonlabored Cardiovascular: RRR, Pulses normal, No rub, No murmur Musculoskeletal: Limited ROM Skin: Warm, Dry, Normal color Neurological: Sensation intact, Motor intact, Reflexes intact, Cranial nerves intact, Alert, Oriented Psychiatric: Anxious Interpretation - Radiology Interpretation Radiology Interpretation By: Radiologist Radiology Results: No acute changes Exam Interpreted: Other (Ankle and foot ) Critical Care Note - Critical Care Note Total Time (mins): 0 Course - Course Orders, Labs, Meds: Orders Category Date Time Status CRUTCHES [ED CRUTCHES] .ONCE EMERGENCY 07/23/17 11:12 Active ED RENATO WRAP .ONCE EMERGENCY 07/23/17 11:12 Active Ibuprofen [Motrin] MEDS 07/23/17 10:39 Discontinued 600 mg PO ONCE STA ANKLE, LEFT MIN 3 VIEWS Stat RADS 07/23/17 10:05 Completed FOOT, LEFT 3 VIEWS Stat RADS 07/23/17 10:05 Completed Medications Discontinued Medications Generic Name Dose Route Start Last Admin Trade Name Freq PRN Reason Stop Dose Admin Ibuprofen 600 mg 07/23/17 10:39 07/23/17 10:45 Motrin PO 07/23/17 10:40 600 mg ONCE STA Administration Vital Signs: Temp Pulse Resp BP Pulse Ox 07/23/17 09:40 96.8 F L 88 20 150/87 H 98 Departure - Departure Time of Disposition: 11:10 Disposition: HOME SELF-CARE Discharge Problem: Left ankle sprain Qualifiers: Encounter type: initial encounter Involved ligament of ankle: unspecified ligament Qualified Code(s): S93.402A - Sprain of unspecified ligament of left ankle, initial encounter Instructions: Ankle Sprain (ED) Condition: Fair Pt referred to PMD for follow-up: Yes Additional Instructions: Take Motrin as needed for pain keep foot elevated. Use crutches as needed Use Renato wrap for comfort Prescriptions: Ibuprofen [Motrin] 600 mg PO Q6H PRN #20 tablet PRN Reason: Analgesia Allergies/Adverse Reactions: Allergies bacitracin [From Neosporin ([id number]-diz-rivjd)] Adverse Reaction (Verified 07/23/17 09:46) bacitracin zinc [From Neosporin (fjt-roi-pgrdi)] Adverse Reaction (Verified 09:46) diphenhydramine HCl [From Benadryl] Adverse Reaction (Verified 07/23/17 09:46) increases heart rate above 200 levalbuterol HCl [From Xopenex] Adverse Reaction (Verified 07/23/17 09:46) increases heart rate over 200, painful breathing neomycin sulfate [From Neosporin (grn-mrk-[id number])] Adverse Reaction (Verified 09:46) polymyxin B [From Neosporin (qwp-ulb-dvebv)] Adverse Reaction (Verified 09:46) prednisone Adverse Reaction (Verified 07/23/17 09:46) Fever causes high fever, rash, redness Polymyxin B Adverse Reaction (Uncoded 11/26/16 08:36) Home Medications: Ambulatory Orders Gabapentin 300 mg PO TID 03/17/15 Epinephrine [Epipen 2-Bjorn] 0.3 mg IJ PRN PRN #1 ml 02/10/16 Loratadine 10 mg PO DAILY 07/18/16 Hydrocodone Bit/Acetaminophen [[place] 10-325] 1 tab PO TID 03/01/17 Methocarbamol [Robaxin] 500 mg PO TID PRN 03/01/17 Multivitamin 1 cap PO DAILY 03/01/17 Baclofen 10 mg PO TID #90 tab-cap 03/07/17 Lisinopril 10 mg PO 1 tab every other da 04/24/17 Ibuprofen [Motrin] 600 mg PO Q6H PRN #20 tablet 07/23/17 Disposition Discussed With: Patient
--- NOTE | 2017-07-23 10:45 | DI ---
EXAM: Three views of the left ankle. History: Left ankle trauma. Findings: No acute fracture or dislocation. Well corticated ossific density adjacent to the medial malleolus compatible with old trauma. Small plantar spur. Mild polyarticular joint space narrowing. Osteochondral lucency within the lateral talar dome Impression: 1. No acute fracture. 2. Osteochondral lucency within the lateral talar dome could be further evaluated with nonemergent M TRACI
--- NOTE | 2017-07-23 10:46 | DI ---
EXAM: Three views of the left foot. History: Left foot trauma. Findings: No acute fracture or dislocation. Hypertrophic osseous changes of the medial and lateral malleolus compatible with old ligamentous injury. Mild polyarticular joint space narrowing. Small p lantar spur. Impression: No acute osseous abnormality
== END 2017-07-23 11:36 | disposition home or self-care (01) ==
LOC: ED 09:39
DX: S93.402A Sprain of unspecified ligament of left ankle, initial encounter (principal); X50.1XXA Overexertion from prolonged static or awkward postures, initial encounter; F17.210 Nicotine dependence, cigarettes, uncomplicated
CPT/HCPCS: 99283

== ENCOUNTER 2017-08-05 12:42 | Emergency (ER) ==
[2017-08-05 12:49] VITALS: BP 181/95; TEMP 97.7; BMI 32.7
[2017-08-05] MEDS ORDERED: BENADRYL IV STA (12:49)
--- NOTE | 2017-08-05 14:49 | ED.PDOC ---
General ED Provider: Dr. LOUIS PANTOJA Chief Complaint: Allergic Reaction Stated Complaint: ALLERGIC REACTION TO MEDS ZITHROMAX Time Seen by Physician: 13:00 (SEEN WITH ENTIRE NURSING STAFF) Mode of Arrival: Walk-In Information Source: Patient Exam Limitations: No limitations Primary Care Provider: [facility] Nursing and Triage Documentation Reviewed and Agree: Yes Reviewed sepsis parameters & appropriate labs ordered?: Yes System Inflammatory Response Syndrome: Not Applicable Sepsis Protocol: For patient's 13 years and over: Temp is 96.8 and below OR 101 and greater Pulse >90 BPM Resp >20/minute Acutely Altered Mental Status Are patient's symptoms suggestive of a new infection, such as: -Pneumonia -Skin, Soft Tissue -Endocarditis -UTI -Bone, Joint Infection -Implantable Device -Acute Abdominal Infection -Wound Infection -Meningitis -Blood Stream Catheter Infection -Unknown Miscellaneous Complaint Exam - Complex/Multi-System Complaint/Exam Onset/Duration: TOOK A ZITHROMAX FACIAL FLUSHING NOTED Symptoms Are: Still present Initial Severity: Mild Current Severity: Mild Associated Signs and Symptoms: Denies: Decreased responsiveness, Confusion, Agitation, Dizziness, Weakness, Syncope, Headache, Short of air, Cough, Wheezing , Hemoptysis, Chest pain, Palpitations, Edema, Nausea, Vomiting, Diarrhea, Abdominal pain, Back pain, Dysuria, Hematemesis, Melena, Decreased oral intake, Fever, Diaphoresis, Immunocompromised, Anticoagulation Therapy, Recent medication changes, Indwelling medical liaison, Prior MRSA, Prior VRE, Recent trauma, Remote trauma Recent Echo/LV Function: No Respiratory Distress: None JVD Present: No Tachypnea Present: No Stridor Present: No Abdominal Findings: Present: Normal findings Glascow Coma Scale (see protocol): 15 Meningeal Signs Positive: Yes Focal Weakness: Present: None Focal Sensory Loss: Present: None Gait: Normal Review of Systems - Review Of Systems Constitutional: Reports: No symptoms Eyes: Reports: No symptoms Ears, Nose, Mouth, Throat: Reports: No symptoms Respiratory: Reports: No symptoms Cardiac: Reports: No symptoms GI: Reports: No symptoms : Reports: No symptoms Musculoskeletal: Reports: No symptoms Skin: Reports: No symptoms Neurological: Reports: No symptoms Endocrine: Reports: No symptoms Hematologic/Lymphatic: Reports: No symptoms All Other Systems: Reviewed and Negative Past Medical History - Past Medical History Previously Healthy: Yes Endocrine: Reports: None Cardiovascular: Reports: None Respiratory: Reports: None Hematological: Reports: None Gastrointestinal: Reports: None Genitourinary: Reports: None, UTI (yearly-no known predisposing factrs) Neuro/Psych: Reports: Migraine Musculoskeletal: Reports: Back Pain Cancer: Reports: None Last Menstrual Period: hysterectomy Other Pertinent Past Medical History: chronic low back pain - Surgical History General Surgical History: Reports: Hysterectomy, Tonsillectomy, Back Surgery ( lumbar spine), Other (ear tubes) - Family History Family History: Reports: Unknown - Social History Smoking Status: Current every day smoker Hx Substance Use: No Alcohol Screening: None Physical Exam - Physical Exam Appearance: Well-appearing, No pain distress, Well-nourished Eyes: CRAIG, EOMI, Conjunctiva clear ENT: Ears normal, Nose normal, Oropharynx normal Respiratory: Airway patent, Breath sounds clear, Breath sounds equal, Respirations nonlabored Cardiovascular: RRR, Pulses normal, No rub, No murmur GI/: Soft, Nontender, No masses, Bowel sounds normal, No Organomegaly Musculoskeletal: Normal strength, ROM intact, No edema, No calf tenderness Skin: Warm, Dry, Normal color Neurological: Sensation intact, Motor intact, Reflexes intact, Cranial nerves intact, Alert, Oriented Psychiatric: Affect appropriate, Mood appropriate Critical Care Note - Critical Care Note Total Time (mins): 0 Course - Course Hematology/Chemistry: 08/05/17 12:55 08/05/17 12:55 Orders, Labs, Meds: Lab Review 08/05/17 08/05/17 12:55 12:55 WBC 19.40 H RBC 4.65 Hgb 13.2 Hct 39.9 MCV 85.8 MCH 28.4 MCHC 33.1 RDW Coeff of Veronica 13.2 Plt Count 285 Immature Gran % (Auto) 0.5 Neut % (Auto) 73.1 Lymph % (Auto) 20.3 [place] % (Auto) 5.8 Eos % (Auto) 0.1 Baso % (Auto) 0.2 Immature Gran # (Auto) 0.1 Neut # 14.2 H Lymph # 3.9 H [place] # 1.1 Eos # 0.0 Baso # 0.0 Sodium 143 Potassium 3.5 Chloride 108 H Carbon Dioxide 25 Anion Gap 13.5 BUN 12 Creatinine 1.13 Estimated GFR (MDRD) 55.00 BUN/Creatinine Ratio 10.61 Glucose 91 Calcium 9.3 Total Bilirubin 0.3 AST 12 L ALT 13 Alkaline Phosphatase 80 Total Protein 7.4 Albumin 3.6 Globulin 3.8 Albumin/Globulin Ratio 0.95 Orders Category Date Time Status CBC W/ AUTO DIFF Stat LAB 08/05/17 12:55 Completed COMPREHENSIVE METABOLIC PANEL Stat LAB 08/05/17 12:55 Completed Diphenhydramine Inj [Benadryl] MEDS 08/05/17 12:49 Discontinued 25 mg IV ONCE STA NECK, SOFT TISSUE Stat RADS 08/05/17 12:49 Taken Medications Discontinued Medications Generic Name Dose Route Start Last Admin Trade Name Freq PRN Reason Stop Dose Admin Diphenhydramine HCl 25 mg 08/05/17 12:49 08/05/17 13:08 Benadryl IV 08/05/17 12:50 Not Given ONCE STA Vital Signs: Temp Pulse Resp BP Pulse Ox 08/05/17 12:43 97.7 F 100 H 20 181/95 H 100 Departure - Departure Time of Disposition: 14:48 Disposition: HOME SELF-CARE Discharge Problem: Allergic state Instructions: Antibiotic Medication Allergy (ED) Condition: Good Pt referred to PMD for follow-up: Yes Allergies/Adverse Reactions: Allergies bacitracin [From Neosporin ([id number]-[id number])] Adverse Reaction (Verified 08/05/17 12:52) bacitracin zinc [From Neosporin ([id number]-uhf-[id number])] Adverse Reaction (Verified 12:52) diphenhydramine HCl [From Benadryl] Adverse Reaction (Verified 08/05/17 12:52) increases heart rate above 200 levalbuterol HCl [From Xopenex] Adverse Reaction (Verified 08/05/17 12:52) increases heart rate over 200, painful breathing neomycin sulfate [From Neosporin (fwd-eqi-[id number])] Adverse Reaction (Verified 12:52) polymyxin B [From Neosporin (nzt-awk-wamae)] Adverse Reaction (Verified 12:52) prednisone Adverse Reaction (Verified 08/05/17 12:52) Fever causes high fever, rash, redness Polymyxin B Adverse Reaction (Uncoded 11/26/16 08:36) Home Medications: Ambulatory Orders Gabapentin 300 mg PO TID 03/17/15 Epinephrine [Epipen 2-Bjorn] 0.3 mg IJ PRN PRN #1 ml 02/10/16 Loratadine 10 mg PO DAILY 07/18/16 Hydrocodone Bit/Acetaminophen [[place] 10-325] 1 tab PO TID 03/01/17 Methocarbamol [Robaxin] 500 mg PO TID PRN 03/01/17 Multivitamin 1 cap PO DAILY 03/01/17 Baclofen 10 mg PO TID #90 tab-cap 03/07/17 [place]-3 Fatty Acids/Fish Oil [[place] 3 1,000 Mg Softgel] 1 each PO DAILY
--- NOTE | 2017-08-06 10:09 | DI ---
EXAM: Two views of the neck soft tissues. HISTORY: Pain TECHNIQUE: AP lateral views of the neck soft tissues were obtained. FINDINGS: The evaluation was limited due to underpenetration. No radiopaque foreign bodies are seen . The epiglottis appears normal. No acute foreign bodies are seen. IMPRESSION: No acute abnormalities are seen within the soft tissues of the neck. Limited evaluation due to underpenetration.
== END 2017-08-05 15:00 | disposition home or self-care (01) ==
LOC: ED 12:42
DX: L27.0 Generalized skin eruption due to drugs and medicaments taken internally (principal); T36.3X5A Adverse effect of macrolides, initial encounter; F17.210 Nicotine dependence, cigarettes, uncomplicated; Z79.899 Other long term (current) drug therapy
CPT/HCPCS: 36415; 80053; 85025; 99283

== ENCOUNTER 2017-11-27 09:01 | Outpatient (CLI) ==
[2013-01-17 21:56] VITALS: TEMP 98.9
--- NOTE | 2017-11-27 10:42 | US ---
EXAM: Bilateral breast ultrasound. History: Follow-up bilateral breast masses. Comparison: Bilateral breast ultrasound 04/28/2017 Technique: Multiple sonographic images through the bilateral breasts were obtained. Color duplex Do ppler was used to interrogate vascular flow. Findings: 12 o'clock left breast cyst cluster is not significantly changed measuring 7 mm. 10 o'cloc k right breast cyst cluster is not significantly changed measuring 5 mm. No suspicious masses. Impression: Benign bilateral breast cyst clusters. There is no sonographic evidence of malignancy. Recommend return to routine screening mammography schedule. BIRADS 2
--- NOTE | 2017-11-27 10:44 | MAMMO ---
EXAM: Bilateral digital diagnostic mammogram (2-D and 3-D) History: Bilateral breast masses, follow-up Comparison: Bilateral mammogram 04/28/2017 Findings: MLO and CC views of bilateral breasts demonstrate scattered fibroglandular breast parenchy ma. CAD was reviewed by the radiologist. Tomosynthesis was performed. Stable bilateral breast nodu les. No developing masses and no suspicious microcalcifications. Impression: Stable indeterminate bilateral breast nodules. Recommend further evaluation with bilate ral breast ultrasound. BIRADS 0
== END 2017-11-27 09:02 | disposition home or self-care (01) ==
LOC: RAD 09:01
PROVIDERS: ATTEND Nurse Practitioner Family
DX: N63.0 Unspecified lump in unspecified breast (principal)

== ENCOUNTER 2017-12-03 22:49 | Emergency (ER) ==
[2017-12-03 22:56] VITALS: BP 136/82; TEMP 98; BMI 31.1
[2017-12-03] MEDS ORDERED: PHENERGAN 25 MG/ML VIAL IM STA (22:58)
[2017-12-03] MEDS ORDERED: MORPHINE 4 MG/ML SYRINGE IM STA (22:58)
[2017-12-03] MEDS ORDERED: TORADOL IM STA (22:58)
--- NOTE | 2017-12-03 23:01 | ED.PDOC ---
General ED Provider: Dr. PAT VERGARA-ER Chief Complaint: Headache Stated Complaint: vazquez got a migraine--the imitrex didnt work--this feels like my usual mccabe Time Seen by Physician: 22:59 Mode of Arrival: Walk-In Information Source: Patient Exam Limitations: No limitations Primary Care Provider: RADHA [facility] Nursing and Triage Documentation Reviewed and Agree: Yes Reviewed sepsis parameters & appropriate labs ordered?: Yes System Inflammatory Response Syndrome: Not Applicable Sepsis Protocol: For patient's 13 years and over: Temp is 96.8 and below OR 101 and greater Pulse >90 BPM Resp >20/minute Acutely Altered Mental Status Are patient's symptoms suggestive of a new infection, such as: -Pneumonia -Skin, Soft Tissue -Endocarditis -UTI -Bone, Joint Infection -Implantable Device -Acute Abdominal Infection -Wound Infection -Meningitis -Blood Stream Catheter Infection -Unknown Neurological Complaint Exam - Headache Complaint/Exam Onset: Gradual Duration: several hours Symptoms Are: Still present Timing: Constant Worst Headache Ever: No Initial Severity: Moderate Current Severity: Moderate Location: Diffuse Character: Reports: Dull, Throbbing, Typical headache, Migraine Aggravating: Reports: Bright lights Associated Signs and Symptoms: Reports: Nausea, Vomiting. Denies: Dizziness, Seizure, Sinus pressure, Fever, Neck pain, Neck stiffness, Decreased LOC, Visual changes Related History: Reports: Similar episode Related Surgical History: Reports: None SAH Risk Factors: Reports: None Meningitis Risk Factors: Reports: None Temporal Arteritis Risk Factors: Reports: Female, Fundoscopic Exam: Present: Normal Findings Papilledema Present: No Temporal Artery Tenderness: Present: None Sinus Tenderness: Present: None TMJ Tenderness: Present: None Meningeal Signs Positive: No Pain on Passive Flexion-Positive Kernig's: No ROM Limited In: No Limitiations Focal Weakness: Present: None Focal Sensory Loss: Present: None Gait: Normal Nystagmus Present: No Gag Reflex Present: Yes [id number]: Normal Findings Romberg Test Positive: No Babinski Sign: Negative Right, Negative Left Heel to Toe Normal: Yes Differential Diagnoses: Migraine Review of Systems - Review Of Systems Constitutional: Reports: No symptoms Eyes: Reports: No symptoms Ears, Nose, Mouth, Throat: Reports: No symptoms Respiratory: Reports: No symptoms Cardiac: Reports: No symptoms GI: Reports: Nausea : Reports: No symptoms Musculoskeletal: Reports: No symptoms Skin: Reports: No symptoms Neurological: Reports: Headache Endocrine: Reports: No symptoms Hematologic/Lymphatic: Reports: No symptoms All Other Systems: Reviewed and Negative Past Medical History - Past Medical History Previously Healthy: Yes Endocrine: Reports: None Cardiovascular: Reports: None Respiratory: Reports: None Hematological: Reports: None Gastrointestinal: Reports: None Genitourinary: Reports: None, UTI (yearly-no known predisposing factrs) Neuro/Psych: Reports: Migraine Musculoskeletal: Reports: Back Pain Cancer: Reports: None Last Menstrual Period: HYSTERECTOMY Other Pertinent Past Medical History: chronic low back pain - Surgical History General Surgical History: Reports: Hysterectomy, Tonsillectomy, Back Surgery ( lumbar spine), Other (ear tubes) - Family History Family History: Reports: Unknown - Social History Smoking Status: Current every day smoker, Heavy tobacco smoker Hx Substance Use: No Alcohol Screening: None Lives: With family - Immunizations Tetanus Shot up to Date: Yes Physical Exam - Physical Exam Appearance: Well-appearing, No pain distress, Well-nourished Pain Distress: Moderate Eyes: CRAIG, EOMI, Conjunctiva clear ENT: Ears normal Neck: Supple Respiratory: Airway patent, Breath sounds clear, Breath sounds equal, Respirations nonlabored Cardiovascular: RRR GI/: Soft, Nontender, No masses, Bowel sounds normal, No Organomegaly Musculoskeletal: Normal strength, ROM intact, No edema, No calf tenderness Skin: Warm Neurological: Sensation intact, Motor intact, Reflexes intact, Cranial nerves intact, Alert, Oriented Psychiatric: Affect appropriate, Mood appropriate Re-Evaluation - Re-Evaluation Time of Re-Evaluation: 23:25 Status: Improved Vital Signs Stable: Yes Pain Level: 1 Appearance: NAD Lungs: Clear Skin: Warm and Dry Neuro: Alert and Oriented X3 CV: RRR Critical Care Note - Critical Care Note Total Time (mins): 0 Course - Course Orders, Labs, Meds: Orders Category Date Time Status Ketorolac Tromethamine [Toradol] MEDS 12/03/17 22:58 Discontinued 60 mg IM ONCE STA Morphine Sulfate [Morphine 4 mg/ml Syringe] MEDS 12/03/17 22:58 Discontinued 4 mg IM ONCE STA Promethazine HCl [Phenergan 25 mg/ml Vial] MEDS 12/03/17 22:58 Discontinued 25 mg IM ONCE STA Medications Discontinued Medications Generic Name Dose Route Start Last Admin Trade Name Freq PRN Reason Stop Dose Admin Ketorolac Tromethamine 60 mg 12/03/17 22:58 12/03/17 23:11 Toradol IM 12/03/17 22:59 60 mg ONCE STA Administration Morphine Sulfate 4 mg 12/03/17 22:58 12/03/17 23:10 Morphine 4 Mg/Ml Syringe IM 12/03/17 22:59 4 mg ONCE STA Administration Promethazine HCl 25 mg 12/03/17 22:58 12/03/17 23:11 Phenergan 25 Mg/Ml Vial IM 12/03/17 22:59 25 mg ONCE STA Administration Vital Signs: Temp Pulse Resp BP Pulse Ox 12/03/17 22:50 98 F 88 20 136/82 97 Departure - Departure Time of Disposition: 00:27 Disposition: HOME SELF-CARE Discharge Problem: Migraine headache Qualifiers: Migraine type: unspecified Status migrainosus presence: without status migrainosus Intractability: not intractable Qualified Code(s): G43.909 - Migraine, unspecified, not intractable, without status migrainosus Instructions: Migraine Headache (ED) Condition: Good Pt referred to PMD for follow-up: Yes IPMP verified?: No Additional Instructions: f/u with pcp Allergies/Adverse Reactions: Allergies bacitracin [From Neosporin ([id number])] Adverse Reaction (Verified 08/05/17 12:52) bacitracin zinc [From Neosporin ([id number])] Adverse Reaction (Verified 12:52) diphenhydramine HCl [From Benadryl] Adverse Reaction (Verified 08/05/17 12:52) increases heart rate above 200 levalbuterol HCl [From Xopenex] Adverse Reaction (Verified 08/05/17 12:52) increases heart rate over 200, painful breathing neomycin sulfate [From Neosporin ([id number])] Adverse Reaction (Verified 12:52) polymyxin B [From Neosporin (eia-vlt-odysc)] Adverse Reaction (Verified 12:52) prednisone Adverse Reaction (Verified 08/05/17 12:52) Fever causes high fever, rash, redness Z-pack Allergy (Severe, Uncoded 08/08/17 08:52) Vomiting Polymyxin B Adverse Reaction (Uncoded 11/26/16 08:36) Home Medications: Ambulatory Orders Gabapentin 300 mg PO TID 03/17/15 Epinephrine [Epipen 2-Bjorn] 0.3 mg IJ PRN PRN #1 ml 02/10/16 Loratadine 10 mg PO DAILY 07/18/16 Hydrocodone Bit/Acetaminophen [[place] 10-325] 1 tab PO TID 03/01/17 Methocarbamol [Robaxin] 500 mg PO TID PRN 03/01/17 Multivitamin 1 cap PO DAILY 03/01/17 Baclofen 10 mg PO TID #90 tab-cap 03/07/17 [place]-3 Fatty Acids/Fish Oil [[place] 3 1,000 Mg Softgel] 1 each PO DAILY Estradiol 2 mg PO 08/08/17 Disposition Discussed With: Patient
== END 2017-12-04 00:29 | disposition home or self-care (01) ==
LOC: ED 22:49
DX: G43.909 Migraine, unspecified, not intractable, without status migrainosus (principal); F17.210 Nicotine dependence, cigarettes, uncomplicated
CPT/HCPCS: 96372; 99282

== ENCOUNTER 2017-12-11 11:36 | Outpatient (CLI) ==
[2013-01-17 21:56] VITALS: TEMP 98.9
[2017-12-11 09:31] VITALS: BMI 31.1
== END 2017-12-11 11:37 | disposition home or self-care (01) ==
LOC: RHC-LAB 11:36
PROVIDERS: ATTEND Emergency Medicine
DX: K76.0 Fatty (change of) liver, not elsewhere classified (principal); E78.5 Hyperlipidemia, unspecified; E55.9 Vitamin D deficiency, unspecified
CPT/HCPCS: 36415; 80053; 82306

== ENCOUNTER 2018-01-22 15:16 | Outpatient (CLI) ==
[2013-01-17 21:56] VITALS: TEMP 98.9
== END 2018-01-22 15:17 | disposition home or self-care (01) ==
LOC: LAB 15:16
PROVIDERS: ATTEND Nurse Practitioner Family
DX: E78.5 Hyperlipidemia, unspecified (principal); E78.1 Pure hyperglyceridemia; R11.2 Nausea with vomiting, unspecified
CPT/HCPCS: 36415; 80053; 80061

== ENCOUNTER 2018-04-29 17:55 | Emergency (ER) | payer OTHER ==
[2018-04-29 17:56] VITALS: BMI 31.1
[2018-04-29 18:02] VITALS: BP 131/99; TEMP 96.6
--- NOTE | 2018-04-29 18:10 | ED.PDOC ---
General <JEEWL BRADSHAW - Last Filed: 04/29/18 19:16> Stated Complaint: my head hurts Time Seen by Physician: 18:10 Mode of Arrival: Wheelchair Information Source: Patient Exam Limitations: No limitations Nursing and Triage Documentation Reviewed and Agree: Yes Does patient meet sepsis criteria?: No System Inflammatory Response Syndrome: Not Applicable <PAT HUIZAR - Last Filed: 05/03/18 06:58> ED Provider: Dr. PAT VERGARA-ANNE Chief Complaint: Headache Primary Care Provider: EMY SCHMITZ Sepsis Protocol: For patient's 13 years and over: Temp is 96.8 and below OR 101 and greater Pulse >90 BPM Resp >20/minute Acutely Altered Mental Status Are patient's symptoms suggestive of a new infection, such as: -Pneumonia -Skin, Soft Tissue -Endocarditis -UTI -Bone, Joint Infection -Implantable Device -Acute Abdominal Infection -Wound Infection -Meningitis -Blood Stream Catheter Infection -Unknown Neurological Complaint Exam - Headache Complaint/Exam Onset: Gradual Duration: 4 hrs Symptoms Are: Still present Timing: Constant Worst Headache Ever: No Initial Severity: Mild Current Severity: Moderate Location: Diffuse Character: Reports: Dull, Throbbing, Typical headache, Migraine Aggravating: Reports: Bright lights Associated Signs and Symptoms: Reports: Nausea, Vomiting, Neck pain Related History: Reports: Similar episode. Denies: Recent trauma, Remote trauma Related Surgical History: Reports: None SAH Risk Factors: Reports: None Meningitis Risk Factors: Reports: None SDH Risk Factors: Reports: None Temporal Arteritis Risk Factors: Reports: Female, Normal Head CT Within Last 12 Months: No Fundoscopic Exam: Present: Normal Findings Papilledema Present: No Temporal Artery Tenderness: Present: None Sinus Tenderness: Present: None TMJ Tenderness: Present: None Glascow Coma Scale (see protocol): 15 Meningeal Signs Positive: No Pain on Passive Flexion-Positive Kernig's: No ROM Limited In: No Limitiations Focal Weakness: Present: None Focal Sensory Loss: Present: None Gait: Normal Nystagmus Present: No Gag Reflex Present: No Ayukfb-tv-Irif: Normal Findings Romberg Test Positive: No Babinski Sign: Negative Right, Negative Left Heel to Toe Normal: Yes Differential Diagnoses: Migraine, Tension Headache <PAT HUIZAR - Last Filed: 05/03/18 06:58> Review of Systems - Review Of Systems Constitutional: Reports: No symptoms Eyes: Reports: No symptoms Ears, Nose, Mouth, Throat: Reports: No symptoms Respiratory: Reports: No symptoms Cardiac: Reports: No symptoms GI: Reports: No symptoms : Reports: No symptoms Musculoskeletal: Reports: Neck pain Skin: Reports: No symptoms Neurological: Reports: Headache Endocrine: Reports: No symptoms Hematologic/Lymphatic: Reports: No symptoms All Other Systems: Reviewed and Negative <JAIILSAPAT Last Filed: 05/03/18 06:58> Past Medical History - Past Medical History Previously Healthy: Yes Endocrine: Reports: None Cardiovascular: Reports: None Respiratory: Reports: None Hematological: Reports: None Gastrointestinal: Reports: None Genitourinary: Reports: None, UTI (yearly-no known predisposing factrs) Neuro/Psych: Reports: Migraine Musculoskeletal: Reports: Back Pain Cancer: Reports: None Last Menstrual Period: NA Other Pertinent Past Medical History: chronic low back pain - Surgical History General Surgical History: Reports: Hysterectomy, Tonsillectomy, Back Surgery ( lumbar spine), Other (ear tubes) - Family History Family History: Reports: Unknown - Social History Smoking Status: Current some day smoker Hx Substance Use: No Alcohol Screening: None Lives: With family - Immunizations Tetanus Shot up to Date: No <JAI-ER,PAT Last Filed: 05/03/18 06:58> Physical Exam - Physical Exam Appearance: Well-appearing Pain Distress: Moderate Eyes: CRAIG, EOMI, Conjunctiva clear ENT: Ears normal, Nose normal, Oropharynx normal Neck: Supple Respiratory: Airway patent Cardiovascular: RRR GI/: Soft Musculoskeletal: Normal strength Skin: Warm, Dry, Normal color Neurological: Sensation intact, Motor intact, Reflexes intact, Cranial nerves intact, Alert, Oriented Psychiatric: Affect appropriate, Mood appropriate <GAYEPAT Last Filed: 05/03/18 06:58> Interpretation - Radiology Interpretation Radiology Interpretation By: Radiologist Radiology Results: Negative Exam Interpreted: CT Scan (head) Radiology Interpretation By: Radiologist Radiology Results: Negative (reversal of Normal cervical lordosis) Exam Interpreted: CT Scan (c spine ) <JEWEL BRADSHAW Last Filed: 04/29/18 19:16> Re-Evaluation - Re-Evaluation Time of Re-Evaluation: 19:12 Status: Improved Vital Signs Stable: Yes Pain Level: 8-5 <JEWEL BRADSHAW - Last Filed: 04/29/18 19:16> Physician Notification - Case Discussed Physician Notified: dr bradshaw Time of Notification: 18:59 <PAT HUIZAR - Last Filed: 05/03/18 06:58> Critical Care Note - Critical Care Note Total Time (mins): 0 <PTA HUIZAR - Last Filed: 05/03/18 06:58> - Course Orders, Labs, Meds: Orders Category Date Time Status Hydromorphone HCl [Dilaudid 0.5 mg/0.5 ml Syringe] MEDS 04/29/18 18:29 Discontinued 1 mg IM ONCE STA Hydromorphone HCl [Dilaudid 1 mg/ml Syringe] MEDS 04/29/18 18:29 Discontinued 1 mg IM ONCE STA Ketorolac Tromethamine [Toradol] MEDS 04/29/18 18:12 Discontinued 60 mg IM ONCE STA Promethazine HCl [Phenergan 25 mg/ml Vial] MEDS 04/29/18 18:12 Discontinued 25 mg IM ONCE STA CT CERVICAL SPINE W/O CONTRAST Stat RADS 04/29/18 18:[address] HEAD W/O CONTRAST Stat RADS 04/29/18 18:08 Completed Medications Discontinued Medications Generic Name Dose Route Start Last Admin Trade Name Freq PRN Reason Stop Dose Admin Hydromorphone HCl 1 mg 04/29/18 18:29 04/29/18 18:38 Dilaudid 0.5 Mg/0.5 Ml Syringe IM 04/29/18 18:30 1 mg ONCE STA Administration Hydromorphone HCl 1 mg 04/29/18 18:29 04/29/18 18:39 Dilaudid 1 Mg/Ml Syringe IM 04/29/18 18:30 1 mg ONCE STA Administration Ketorolac Tromethamine 60 mg 04/29/18 18:12 04/29/18 18:41 Toradol IM 04/29/18 18:13 60 mg ONCE STA Administration Promethazine HCl 25 mg 04/29/18 18:12 04/29/18 18:40 Phenergan 25 Mg/Ml Vial IM 04/29/18 18:13 25 mg ONCE STA Administration Vital Signs: Temp Pulse Resp BP Pulse Ox 04/29/18 17:59 96.6 F L 70 16 131/99 H 95 Departure - Departure Time of Disposition: 19:17 Pt referred to PMD for follow-up: Yes IPMP verified?: Yes Disposition Discussed With: Patient <JEWEL BRADSHAW - Last Filed: 04/29/18 19:16> - Departure Pt referred to PMD for follow-up: Yes IPMP verified?: Yes Disposition Discussed With: Patient <PAT HUIZAR - Last Filed: 05/03/18 06:58> - Departure Disposition: HOME SELF-CARE Discharge Problem: Classical migraine Qualifiers: Status migrainosus presence: without status migrainosus Intractability: not intractable Qualified Code(s): G43.109 - Migraine with aura, not intractable, without status migrainosus Instructions: Migraine Headache (ED) Condition: Stable Additional Instructions: FOLLOW UP WITH YOUR PCP IN THE MORNING REST Allergies/Adverse Reactions: Allergies bacitracin [From Neosporin ([id number])] Adverse Reaction (Verified 04/29/18 18:05) bacitracin zinc [From Neosporin (paq-koh-xpqfy)] Adverse Reaction (Verified 18:05) diphenhydramine HCl [From Benadryl] Adverse Reaction (Verified 04/29/18 18:05) increases heart rate above 200 levalbuterol HCl [From Xopenex] Adverse Reaction (Verified 04/29/18 18:05) increases heart rate over 200, painful breathing neomycin sulfate [From Neosporin ([id number]-qtc-[id number])] Adverse Reaction (Verified 18:05) polymyxin B [From Neosporin (siy-myh-axgnp)] Adverse Reaction (Verified 18:05) prednisone Adverse Reaction (Verified 04/29/18 18:05) Fever causes high fever, rash, redness Z-pack Allergy (Severe, Uncoded 08/08/17 08:52) Vomiting Polymyxin B Adverse Reaction (Uncoded 11/26/16 08:36) Home Medications: Ambulatory Orders Gabapentin 300 mg PO TID 03/17/15 Epinephrine [Epipen 2-Bjorn] 0.3 mg IJ PRN PRN #1 ml 02/10/16 Loratadine 10 mg PO DAILY 07/18/16 Hydrocodone Bit/Acetaminophen [[place] 10-325] 1 tab PO TID 03/01/17 Multivitamin 1 cap PO DAILY 03/01/17 Baclofen 10 mg PO TID #90 tab-cap 03/07/17 [place]-3 Fatty Acids/Fish Oil [[place] 3 1,000 Mg Softgel] 1 each PO DAILY Estradiol 2 mg PO 08/08/17
[2018-04-29] MEDS ORDERED: DILAUDID 2 MG/ML SDV IM STA (18:12)
[2018-04-29] MEDS ORDERED: TORADOL IM STA (18:12)
[2018-04-29] MEDS ORDERED: PHENERGAN 25 MG/ML VIAL IM STA (18:12)
[2018-04-29] MEDS ORDERED: DILAUDID 0.5 MG/0.5 ML SYRINGE IM STA (18:29)
[2018-04-29] MEDS ORDERED: DILAUDID 1 MG/ML SYRINGE IM STA (18:29)
--- NOTE | 2018-04-29 19:02 | CT ---
EXAM: Noncontrast CT head. HISTORY: Headache. COMPARISON: 11/07/2013. TECHNIQUE: Noncontrast CT head was performed with axial , coronal and sagittal reconstructions. Findings: There is preservation of the garcia-white differential without evidence of definitive large vessel acut e cortical infarct identified. No acute intracranial hemorrhage is identified. No midline shift is i dentified. No definitive intracranial mass lesion is identified within technical limitations of nonco ntrast CT. The basal cisterns are patent. The ventricles are normal in size and configuration. Limi morro evaluation of the skull demonstrates no visualized lucent skull acute fractures or destructive os seous lesions identified within the visualized portions of the skull. Partially visualized paranasal sinuses and mastoid air cells appear relatively clear in the visualized regions. Impression: 1. No acute intracranial hemorrhage or definitive large vessel acute cortical infarct identified.
--- NOTE | 2018-04-29 19:08 | CT ---
EXAM: Noncontrast CT of the cervical spine. HISTORY: Headache. COMPARISON: None available at the time of dictation. TECHNIQUE: Noncontrast CT of the cervical spine was performed with axial, coronal and sagittal recons tructions were obtained and reviewed. FINDINGS: Sagital reconstructions demonstrate mild reversal normal cervical lordosis.. Coronal reconstructions demonstrate convex right curvature of the cervical spine which may relate to positioning or minimal dextroscoliosis. No acute cervical spinal fractures are identified. There is p reservation of the normal cervical vertebral body heights. Paravertebral soft tissues are without par avertebral fluid collections, hematomas or masses identified on limited evaluation. Within limitations of non myelogram CT, the central canal and bony neural foramina of the cervical sp ine appear relatively patent. IMPRESSION: No acute fractures of the cervical spine are identified. Reversal of the normal cervical lordosis which can be seen with positioning and/or paravertebral musc le spasm.
== END 2018-04-29 19:28 | disposition home or self-care (01) ==
LOC: ED 17:55
DX: G43.109 Migraine with aura, not intractable, without status migrainosus (principal); F17.210 Nicotine dependence, cigarettes, uncomplicated
CPT/HCPCS: 96372; 99283

== ENCOUNTER 2018-05-21 09:14 | Outpatient (CLI) ==
[2013-01-17 21:56] VITALS: TEMP 98.9
== END 2018-05-21 09:15 | disposition home or self-care (01) ==
LOC: FCC-LAB 09:14
PROVIDERS: ATTEND Nurse Practitioner Family
DX: N39.0 Urinary tract infection, site not specified (principal)
CPT/HCPCS: 87086

== ENCOUNTER 2018-05-31 15:10 | Outpatient (CLI) ==
[2013-01-17 21:56] VITALS: TEMP 98.9
--- NOTE | 2018-05-31 15:38 | DI ---
EXAM: KUB. History: Abdominal pain. Comparison: CT abdomen pelvis 07/07/2017 Findings: Battery pack with stimulator device again seen. Nonspecific but nonobstructive bowel gas pattern. Moderate colonic stool. No free air. No suspicious calcifications. No acute osseous abno rmalities. Impression: NO ACUTE RADIOGRAPHIC FINDINGS IN THE ABDOMEN.
== END 2018-05-31 15:11 | disposition home or self-care (01) ==
LOC: RAD 15:10
PROVIDERS: ATTEND Nurse Practitioner Family
DX: R10.9 Unspecified abdominal pain (principal)

== ENCOUNTER 2018-06-03 18:49 | Emergency (ER) ==
[2018-06-03 18:54] VITALS: BP 123/87; TEMP 96.6; BMI 31.9
[2018-06-03] MEDS ORDERED: ZANTAC PO STA (19:07)
[2018-06-03] MEDS ORDERED: CLARITIN PO STA (19:07)
[2018-06-03] MEDS ORDERED: EPINEPHRINE 1:1,000 AMP IM STA (19:07)
--- NOTE | 2018-06-03 19:13 | ED.PDOC ---
General ED Provider: Dr. 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 She apparently was started on [place] on 05/31. Time Seen by Physician: 19:00 Mode of Arrival: Walk-In Information Source: Patient Primary Care Provider: SHANA MARTINEZ Nursing and Triage Documentation Reviewed and Agree: Yes Does patient meet sepsis criteria?: No System Inflammatory Response Syndrome: Not Applicable Sepsis Protocol: For patient's 13 years and over: Temp is 96.8 and below OR 101 and greater Pulse >90 BPM Resp >20/minute Acutely Altered Mental Status Are patient's symptoms suggestive of a new infection, such as: -Pneumonia -Skin, Soft Tissue -Endocarditis -UTI -Bone, Joint Infection -Implantable Device -Acute Abdominal Infection -Wound Infection -Meningitis -Blood Stream Catheter Infection -Unknown Environmental Complaint Exam - Allergic Reaction Complaint/Exam Onset/Duration: 90 mins Symptoms Are: Still present Timing: Constant Initial Severity: Moderate Current Severity: Moderate Location: Discrete Character: Present: Swelling Aggravating: Reports: None Alleviating: Reports: None Associated Signs and Symptoms: Reports: Throat tightening, Throat swelling. Denies: Difficulty breathing, Cough, Wheezing, Chest pain, Hoarseness, Rash, Abdominal pain, Diaphoresis, Lightheadedness, Syncope, Nausea, Vomiting Possible Reaction To: Reports: Medication (Macrobid ) Diphenhydramine Prior to Arrival: No (allergic to it ) Epinephrine Auto Injector Prior to Arrival: No (does not have one ) Respiratory Distress: None Findings: Present: Dysphagia. Absent: Hoarseness, Stridor, Oropharyngeal edema , Angioedema, Vesicular rash, Urticarial rash, Petechiael rash, Macular rash, Papular rash Differential Diagnoses: Angioedema Review of Systems - Review Of Systems Constitutional: Reports: No symptoms Ears, Nose, Mouth, Throat: Reports: Throat swelling Respiratory: Reports: No symptoms Cardiac: Reports: No symptoms GI: Reports: No symptoms : Reports: No symptoms Musculoskeletal: Reports: No symptoms Skin: Reports: No symptoms Neurological: Reports: Anxiety Endocrine: Reports: No symptoms Hematologic/Lymphatic: Reports: No symptoms All Other Systems: Reviewed and Negative Past Medical History - Past Medical History Previously Healthy: Yes Endocrine: Reports: None Cardiovascular: Reports: None Respiratory: Reports: None Hematological: Reports: None Gastrointestinal: Reports: None Genitourinary: Reports: None, UTI (yearly-no known predisposing factrs) Neuro/Psych: Reports: Migraine Musculoskeletal: Reports: Back Pain Cancer: Reports: None Last Menstrual Period: na Other Pertinent Past Medical History: chronic low back pain - Surgical History General Surgical History: Reports: Hysterectomy, Tonsillectomy, Back Surgery ( lumbar spine), Other (ear tubes) - Family History Family History: Reports: Unknown - Social History Smoking Status: Current some day smoker Hx Substance Use: No Alcohol Screening: None - Immunizations Tetanus Shot up to Date: Yes Physical Exam - Physical Exam Appearance: Well-appearing Eyes: CRAIG, EOMI, Conjunctiva clear ENT: Ears normal, Nose normal, Oropharynx normal Neck: Supple Respiratory: Airway patent, Breath sounds clear, Breath sounds equal, Respirations nonlabored Cardiovascular: RRR, Pulses normal, No rub, No murmur GI/: Soft, Nontender, No masses, Bowel sounds normal, No Organomegaly Musculoskeletal: Normal strength, ROM intact, No edema, No calf tenderness Skin: Warm, Dry, Normal color Neurological: Sensation intact, Motor intact, Cranial nerves intact, Alert, Oriented Psychiatric: Anxious Re-Evaluation - Re-Evaluation Time of Re-Evaluation: 19:20 Status: Improved Vital Signs Stable: Yes Critical Care Note - Critical Care Note Total Time (mins): 0 Course - Course Orders, Labs, Meds: Orders Category Date Time Status RAPID STREP SCREEN [MOLECULAR GROUP A STREP] Stat LAB 06/03/18 19:35 Completed Epinephrine Amp [Epinephrine 1:1,000 Amp] MEDS 06/03/18 19:07 Discontinued 0.4 mg IM ONCE STA Loratadine [Claritin] MEDS 06/03/18 19:07 Discontinued 10 mg PO ONCE STA Ranitidine HCl [Zantac] MEDS 06/03/18 19:07 Discontinued 300 mg PO ONCE STA Medications Discontinued Medications Generic Name Dose Route Start Last Admin Trade Name Freq PRN Reason Stop Dose Admin Epinephrine HCl 0.4 mg 06/03/18 19:07 06/03/18 19:21 Epinephrine 1:1,000 Amp IM 06/03/18 19:08 0.4 mg ONCE STA Administration Loratadine 10 mg 06/03/18 19:07 06/03/18 19:16 Claritin PO 06/03/18 19:08 10 mg ONCE STA Administration Ranitidine HCl 300 mg 06/03/18 19:07 06/03/18 19:16 Zantac PO 06/03/18 19:08 300 mg ONCE STA Administration Vital Signs: Temp Pulse Resp BP Pulse Ox 06/03/18 18:50 96.6 F L 90 16 123/87 99 Departure - Departure Time of Disposition: 19:57 Disposition: HOME SELF-CARE Discharge Problem: Allergic reaction caused by a drug Qualifiers: Encounter type: initial encounter Qualified Code(s): T78.40XA - Allergy, unspecified, initial encounter Instructions: Antibiotic Medication Allergy (ED) Condition: Fair Pt referred to PMD for follow-up: Yes IPMP verified?: No Additional Instructions: STOP TAKING YOUR NITROFURANTOIN USE CLARITIN OR ZYRTEC NEEDED FOR ALLERGY SYMPTOMS MAKE SURE TO GET EPIPEN FILLED AND USE IT NEEDED FOLLOW UP WITH PCP IN 3 DAYS Prescriptions: Cetirizine HCl [All Day Allergy] 10 mg PO DAILY LAB PRN #30 tablet PRN Reason: Allergy Symptoms Epinephrine [Epipen Twinpak] 0.3 mg IM PRN PRN #1 pen.[email or web address] PRN Reason: Allergy Symptoms Allergies/Adverse Reactions: Allergies bacitracin [From Neosporin ([id number])] Adverse Reaction (Verified 06/03/18 18:58) bacitracin zinc [From Neosporin ([id number])] Adverse Reaction (Verified 18:58) diphenhydramine HCl [From Benadryl] Adverse Reaction (Verified 06/03/18 18:58) increases heart rate above 200 levalbuterol HCl [From Xopenex] Adverse Reaction (Verified 06/03/18 18:58) increases heart rate over 200, painful breathing neomycin sulfate [From Neosporin ([id number])] Adverse Reaction (Verified 18:58) polymyxin B [From Neosporin ([id number])] Adverse Reaction (Verified 18:58) prednisone Adverse Reaction (Verified 06/03/18 18:58) Fever causes high fever, rash, redness Z-pack Allergy (Severe, Uncoded 08/08/17 08:52) Vomiting Polymyxin B Adverse Reaction (Uncoded 11/26/16 08:36) Home Medications: Ambulatory Orders Gabapentin 300 mg PO TID 03/17/15 Epinephrine [Epipen 2-Bjorn] 0.3 mg IJ PRN PRN #1 ml 02/10/16 Loratadine 10 mg PO DAILY 07/18/16 Hydrocodone Bit/Acetaminophen [[place] 10-325] 1 tab PO TID 03/01/17 Multivitamin 1 cap PO DAILY 03/01/17 Baclofen 10 mg PO TID #90 tab-cap 03/07/17 Frostproof-3 Fatty Acids/Fish Oil [Frostproof 3 1,000 Mg Softgel] 1 each PO DAILY Cetirizine HCl [All Day Allergy] 10 mg PO DAILY LAB PRN #30 tablet 06/03/18 Epinephrine [Epipen Twinpak] 0.3 mg IM PRN PRN #1 pen.[email or web address] 06/03/18 Disposition Discussed With: Patient, Family
== END 2018-06-03 20:13 | disposition home or self-care (01) ==
LOC: ED 18:49
DX: T37.8X5A Adverse effect of other specified systemic anti-infectives and antiparasitics, initial encounter (principal); R20.0 Anesthesia of skin; R20.2 Paresthesia of skin; R13.10 Dysphagia, unspecified; F17.210 Nicotine dependence, cigarettes, uncomplicated; Z79.899 Other long term (current) drug therapy
CPT/HCPCS: 87651; 96372; 99283

== ENCOUNTER 2018-11-01 08:15 | Outpatient (RCR) ==
[2013-01-17 21:56] VITALS: TEMP 98.9
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
--- NOTE | 2018-10-18 15:43 | RS.OPPTDN ---
Subjective Date of Note: 10/18/18 Visit #: 2 Number of visits approved by Insurance: 2-3x6 Date of Evaluation: 10/16/18 Payer Source: Insurance Treatment Diagnosis: cervical radiculopathy, Current Subjective/complaints:: Patient c/o migraine. She says it started this morning at the L side of her neck and moved to her head. Reports she would like to have her stimulator implanted to her neck since it has helped her back so much. She describes it as throbbing. *Precautions: pt has implanted stimulator for lumbar spine Pain Assessment - Pain Description Pain Description: Throbbing - Treatment Modality: Ultrasound Parameters/Method Applied: pulsed @ 20% 0.6 w/cm2 x 12 mins to bilateral UT and cervical paraspinals with more concentration to the L side. Patient Position: Sitting - Heat/Cryotherapy Treatment: Cryotherapy (cervical x 15 mins supine following MT) Interventions - Exercise/Activities/Manual Therapy Exercises/Activities: Reviewed HEP. Encouraged ice at home. Manual Therapy: 12 mins STM and trigger point work to bilateral UT concentrating on the L side. HOME EXERCISE PROGRAM: Gastroc stretch, plantar fascia stretch, AROM into DF, PF , inversion, eversion. - Charges Timed Code Treatment Minutes: 24 Total Treatment Time: 39 Procedures billed for this date of service:: cp, MT, u/s Assessment: Patient presents with migraine mostly to the L side of her head and neck pain. She demo moderate muscle guarding throughout bilateral UT. She presents with facial grimacing, and very little ability to have her eyes open because of pain. Slight improvement with treatment today, but she maintains 1 trigger point that is active at the L UT and should improve with further treatment of modalities and MT. 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
--- NOTE | 2018-10-19 14:48 | RS.OPPTDN ---
Subjective Date of Note: 10/19/18 Visit #: 3 Number of visits approved by Insurance: 2-3x6 Date of Evaluation: 10/16/18 Payer Source: Insurance Treatment Diagnosis: cervical radiculopathy, Current Subjective/complaints:: Patient says her migraine finally went away last night prior to going into work. She says that she used ice again last night after therapy, laid down and took a muscle relaxer. Gay reports more cervical flexion hurts and she has to work on cervical retraction or lay with less flexion to relieve her pain. She says she is able to press on the knot on the L side of her neck and it causes pain up into her head. Reports tingling to both hands after awakening. *Precautions: pt has implanted stimulator for lumbar spine - Treatment Modality: Ultrasound Parameters/Method Applied: Pulsed @ 20% 0.6 w/cm2 x 12 mins to bilateral UT and cervical paraspinals with more focus to the L. Patient Position: Sitting - Heat/Cryotherapy Treatment: Cryotherapy (cervical x 15 mins in supine after MT) Interventions - Exercise/Activities/Manual Therapy Exercises/Activities: Reviewed HEP. Encouraged ice at home. Manual Therapy: 15 mins STM working into more DTM and trigger point work to bilateral UT concentrating on the L side. HOME EXERCISE PROGRAM: Cervical AROM, shoulder shrugs, scap adduction - Charges Timed Code Treatment Minutes: 27 Total Treatment Time: 42 Procedures billed for this date of service:: cp, u/s, ex Assessment: Patient has gotten relief of migraine through treatment yesterday, going home taking muscle relaxer, and using ice again. She is having tingling to both hands usually when awakening in the morning possibly related to sleeping position. She finds relief with cervical retraction and decreasing cervical flexion. She also gains relief with ice. She maintains moderate sized trigger point to the L UT, which does produce pain into the L side of her head, but less so today. Gave pt tennis ball to use on trigger points at home. Patient Education: Education of diagnosis, Home Exercise Program, Education of Plan of Care Patient demonstrates compliance with HEP?: Yes Short Term Goals Goal #1: pt independent with initial HEP Goal to be met by: 11/02/18 Progress towards Goal:: Progressing Goal #2: Improve cervical ROM WFL's Goal to be met by: 11/02/18 Goal #3: Decrease muscle tightness B uppertrap Goal to be met by: 11/02/18 Goal #4: decrease pain < 4/10 with activity Goal to be met by: 11/02/18 Senior Living Goals Goal #1: pt report able to sleep >4 hours without interruption from pain Goal to be met by: 11/23/18 Goal #2: pt able to perform normal daily activities with less pain Goal to be met by: 11/23/18 Goal #3: No reports of cervical radiculopathy Goal to be met by: 11/23/18 Goal to be met by: 12/21/14 Plan Dates of Senior Living Goals: 11/23/18 Expiration date of current Insurance Approval:: 11/23/18 PLAN: Patient to continue 2-3 days for modalities and possible mechanical traction to assist with radicular symptoms.
--- NOTE | 2018-10-23 15:48 | RS.OPPTDN ---
Subjective Date of Note: 10/23/18 Visit #: 4 Number of visits approved by Insurance: 2-3x6 Date of Evaluation: 10/16/18 Payer Source: Insurance Treatment Diagnosis: cervical radiculopathy, Current Subjective/complaints:: Patient says she still has tingling/numbness to both hands. Reports she worked all weekend. States although she still has pain to her neck, the tightness and sharp pain is much better. *Precautions: pt has implanted stimulator for lumbar spine - Treatment Modality: Ultrasound Parameters/Method Applied: continuous @ 1.5 w/cm2 x 12 mins bilateral UT, but focus on the L Patient Position: Sitting - Heat/Cryotherapy Treatment: Hot Pack (15 mins for cervical in supine prior to u/s) - Traction Treatment Method: Mechanical, Intermittent, Cervical Patient Position: Supine Amount of Force Applied: 12-13 Hold Time: 20 Rest Time: 5 Duration of treatment: 10 Interventions - Exercise/Activities/Manual Therapy Exercises/Activities: Reviewed HEP. Encouraged ice at home. Manual Therapy: 15 mins STM working into more DTM and trigger point work to bilateral UT concentrating on the L side. HOME EXERCISE PROGRAM: Cervical AROM, shoulder shrugs, scap adduction - Charges Timed Code Treatment Minutes: 15 Total Treatment Time: 45 Procedures billed for this date of service:: hp, u/s, mechanical traction Assessment: Modified additon of traction per PT approval due to radicular symptoms. Patient january traction well with reduction of neck pain and tightness, but position caused some cramping to her low back. She should improve with further progression of traction. Patient Education: Education of Plan of Care Patient demonstrates compliance with HEP?: Yes Short Term Goals Goal #1: pt independent with initial HEP Goal to be met by: 11/02/18 Progress towards Goal:: Progressing Goal #2: Improve cervical ROM WFL's Goal to be met by: 11/02/18 Goal #3: Decrease muscle tightness B uppertrap Goal to be met by: 11/02/18 Progress towards Goal:: Progressing Goal #4: decrease pain < 4/10 with activity Goal to be met by: 11/02/18 Cab Starter Goals Goal #1: pt report able to sleep >4 hours without interruption from pain Goal to be met by: 11/23/18 Goal #2: pt able to perform normal daily activities with less pain Goal to be met by: 11/23/18 Goal #3: No reports of cervical radiculopathy Goal to be met by: 11/23/18 Goal to be met by: 12/21/14 Plan Dates of Cab Starter Goals: 11/23/18 Expiration date of current Insurance Approval:: 11/23/18 PLAN: Patient to continue for progression of traction and therex/MT
--- NOTE | 2018-10-25 14:22 | RS.CXNS ---
Date of scheduled appointment: 10/25/18 Type: Cancel
--- NOTE | 2018-10-26 10:33 | RS.OPPTDN ---
Subjective Date of Note: 10/26/18 Visit #: 5 Number of visits approved by Insurance: 2-3x6 Date of Evaluation: 10/16/18 Payer Source: Insurance Treatment Diagnosis: cervical radiculopathy, Current Subjective/complaints:: Patient says she just came from her midnight shift at work. Reports no change in tingling/numbness to her hands, but did explain since we just began traction last session and at a low poundage, she may not experience a decrease until higher poundage was produced. She says her neck is no longer throbbing, but feels "weird." Reports that her head feels heavy and when looking down while standing up she felt "wobbly" while at work. *Precautions: pt has implanted stimulator for lumbar spine - Treatment Modality: Ultrasound Parameters/Method Applied: continuous @ 1.5 w/cm2 x 10 mins to bilateral UT Patient Position: Sitting - Heat/Cryotherapy Treatment: Hot Pack (cervical x 20 mins supine) - Traction Treatment Method: Mechanical, Intermittent, Cervical Patient Position: Supine Amount of Force Applied: 16-17 Hold Time: 25 Rest Time: 5 Duration of treatment: 15 Interventions - Exercise/Activities/Manual Therapy Exercises/Activities: Reviewed HEP. Encouraged ice or heat at home. Reviewed postural techniques and also avoiding extreme cervical flexion if possible and recommendations on how to complete tasks that involve this position. Manual Therapy: na HOME EXERCISE PROGRAM: Cervical AROM, shoulder shrugs, scap adduction - Charges Timed Code Treatment Minutes: 15 Total Treatment Time: 50 Procedures billed for this date of service:: hp, mechanical traction, u/s Assessment: Patient expressed relief of neck "heaviness" and tightness to her upper back following traction today. She admitted this especially during hold phase. She has had no throbbing to the neck and upper back. She is continuing to have numbness and tingling, but as we increased poundage today and hereafter , radicular symptoms should decrease. Patient Education: Education of diagnosis, Body/Joint mechanics, Home Exercise Program, Education of Plan of Care Patient demonstrates compliance with HEP?: Yes Short Term Goals Goal #1: pt independent with initial HEP Goal to be met by: 11/02/18 Progress towards Goal:: Progressing Goal #2: Improve cervical ROM WFL's Goal to be met by: 11/02/18 Progress towards Goal:: Progressing Goal #3: Decrease muscle tightness B uppertrap Goal to be met by: 11/02/18 Progress towards Goal:: Progressing Goal #4: decrease pain < 4/10 with activity Goal to be met by: 11/02/18 Fdc Goals Goal #1: pt report able to sleep >4 hours without interruption from pain Goal to be met by: 11/23/18 Goal #2: pt able to perform normal daily activities with less pain Goal to be met by: 11/23/18 Goal #3: No reports of cervical radiculopathy Goal to be met by: 11/23/18 Goal to be met by: 12/21/14 Plan Dates of Grain Picker Goals: 11/23/18 Expiration date of current Insurance Approval:: 11/23/18 PLAN: Continue progressing traction, using u/s for inflammation and tightness, as well as postural therex.
--- NOTE | 2018-10-29 14:50 | RS.OPPTDN ---
Subjective Date of Note: 10/29/18 Visit #: 6 Number of visits approved by Insurance: 2x6 Date of Evaluation: 10/16/18 Payer Source: Insurance Treatment Diagnosis: cervical radiculopathy, Current Subjective/complaints:: Patient reports she slept wrong and has soreness to the R side of her neck. She says it is tender to touch and pain on the L side is improving and has moved to the occiput instead of mid to lower cspine. She says she feels traction is helping her and wished to continue. Reports she takes pain medication 3 times per day with mm relaxer at bedtime without any improvement. She continues to have difficulty sleeping despite mm relaxer at bedtime. *Precautions: pt has implanted stimulator for lumbar spine - Treatment Modality: Ultrasound Parameters/Method Applied: continuous @ 1.5 w/cm2 x 12 mins to bilateral UT Patient Position: Sitting - Heat/Cryotherapy Treatment: Hot Pack (cervical and upper back in supine x 20 mins ) - Traction Treatment Method: Mechanical, Intermittent, Cervical Patient Position: Supine Amount of Force Applied: 18-19 Hold Time: 25 Rest Time: 5 Duration of treatment: 20 Interventions - Exercise/Activities/Manual Therapy Exercises/Activities: Reviewed HEP. Reviewed postural techniques and also avoiding extreme cervical flexion if possible and recommendations on how to complete tasks that involve this position. Manual Therapy: na HOME EXERCISE PROGRAM: Cervical AROM, shoulder shrugs, scap adduction - Charges Timed Code Treatment Minutes: 15 Total Treatment Time: 55 Procedures billed for this date of service:: hp, mechanical traction, u/s Assessment: Patient has been having tenderness and increased soreness to the R UT today and last night. She has taken pain medication and mm relaxer for relief, however, it was not too effective. She is demo less radicular L UE/ neck pain mostly located at the L occiput now. She appears to be responding to traction and progressive weight as she admitted improved pain, tightness afterwards today. Patient Education: Education of diagnosis, Body/Joint mechanics, Home Exercise Program, Education of Plan of Care Patient demonstrates compliance with HEP?: Yes Short Term Goals Goal #1: pt independent with initial HEP Goal to be met by: 11/02/18 Progress towards Goal:: Progressing Goal #2: Improve cervical ROM WFL's Goal to be met by: 11/02/18 Progress towards Goal:: Progressing Goal #3: Decrease muscle tightness B uppertrap Goal to be met by: 11/02/18 Progress towards Goal:: Progressing Goal #4: decrease pain < 4/10 with activity Goal to be met by: 11/02/18 Senior Care Goals Goal #1: pt report able to sleep >4 hours without interruption from pain Goal to be met by: 11/23/18 Goal #2: pt able to perform normal daily activities with less pain Goal to be met by: 11/23/18 Goal #3: No reports of cervical radiculopathy Goal to be met by: 11/23/18 Goal to be met by: 12/21/14 Plan Dates of Java [email or web address] Software Engineer Goals: 11/23/18 Expiration date of current Insurance Approval:: 11/23/18 PLAN: Patient to continue advancing traction and therex
--- NOTE | 2018-10-31 10:00 | RS.OPPTDN ---
Subjective Date of Note: 10/31/18 Visit #: 6 Number of visits approved by Insurance: 12 Date of Evaluation: 10/16/18 Payer Source: Insurance Treatment Diagnosis: cervical radiculopathy, Current Subjective/complaints:: Patient says she had to spend a lot of time at work last night looking down and did not have nausea like she had last week. She did experience mild soreness and muscle tightness. She reports feeling relief with increasing traction and is hopeful that pain will further decrease her pain. *Precautions: pt has implanted stimulator for lumbar spine - Treatment Modality: Ultrasound Parameters/Method Applied: continuous @ 1.6 w/cm2 x 13 mins to bilateral UT prior to traction Patient Position: Sitting - Heat/Cryotherapy Treatment: Hot Pack (upper back and cervical in supine x 20 mins) - Traction Treatment Method: Mechanical, Intermittent, Cervical Patient Position: Supine Amount of Force Applied: 20-21 Hold Time: 25 Rest Time: 5 Duration of treatment: 20 Interventions - Exercise/Activities/Manual Therapy Exercises/Activities: Reviewed HEP. Reviewed postural techniques and also avoiding extreme cervical flexion if possible and recommendations on how to complete tasks that involve this position. Manual Therapy: na HOME EXERCISE PROGRAM: Cervical AROM, shoulder shrugs, scap adduction - Charges Timed Code Treatment Minutes: 14 Total Treatment Time: 54 Procedures billed for this date of service:: hp, mechanical traction, u/s Assessment: Patient experiencing less pain and tightness to bilateral UT and scapula, but continues to have general mm strain and sore with prolonged cervical flexion. Although, she has not had any nausea with this position as she had last week. She continues to improve with progressed traction. Patient Education: Home Exercise Program, Education of Plan of Care Patient demonstrates compliance with HEP?: Yes Short Term Goals Goal #1: pt independent with initial HEP Goal to be met by: 11/02/18 Progress towards Goal:: Progressing Goal #2: Improve cervical ROM WFL's Goal to be met by: 11/02/18 Progress towards Goal:: Progressing Goal #3: Decrease muscle tightness B uppertrap Goal to be met by: 11/02/18 Progress towards Goal:: Progressing Goal #4: decrease pain < 4/10 with activity Goal to be met by: 11/02/18 Assisted Goals Goal #1: pt report able to sleep >4 hours without interruption from pain Goal to be met by: 11/23/18 Goal #2: pt able to perform normal daily activities with less pain Goal to be met by: 11/23/18 Goal #3: No reports of cervical radiculopathy Goal to be met by: 11/23/18 Goal to be met by: 12/21/14 Plan Dates of Manager It Training Goals: 11/23/18 Expiration date of current Insurance Approval:: 11/23/18 PLAN: Continue 2-3x weekn progressing
--- NOTE | 2018-11-01 10:52 | RS.OPPTDN ---
Subjective Date of Note: 11/01/18 Visit #: 9 Number of visits approved by Insurance: 2-3x6 Date of Evaluation: 10/16/18 Payer Source: Insurance Treatment Diagnosis: cervical radiculopathy, Current Subjective/complaints:: Patient says she awakened this morning to having increased tingling and pain to the R UE. She describes swelling and pressure to the R UE. She doesn't have any reason to these new symptoms. She says she didn't sleep any different and had taken mm relaxer and "arthritis pill " at bedtime. States traction still feels good to her and felt relief last session with increased poundage. *Precautions: pt has implanted stimulator for lumbar spine - Heat/Cryotherapy Treatment: Hot Pack (cervical and upper back in supine with hot pack down the R UE x 20 mins) - Traction Treatment Method: Mechanical, Intermittent, Cervical Patient Position: Supine Amount of Force Applied: 19 Hold Time: 25 Rest Time: 5 Duration of treatment: 20 Traction Treatment Comment: Initially began at 21# today, then decreased due to patient indicating she felt too much pull to the R scapula Interventions - Exercise/Activities/Manual Therapy Exercises/Activities: Reviewed HEP. Reviewed postural techniques and also avoiding extreme cervical flexion if possible and recommendations on how to complete tasks that involve this position. Manual Therapy: na HOME EXERCISE PROGRAM: Cervical AROM, shoulder shrugs, scap adduction - Charges Timed Code Treatment Minutes: 20(with pt during tx education Total Treatment Time: 40 Procedures billed for this date of service:: hp, mechanical traction Assessment: Patient experiencing increased R scapular and neck pain with radiating symptoms to the R UE to fingers indicating pressure and swelling feeling throughout hand. She also is having more numbness and tingling with also feeling sensation changes (cold) to this UE. She presents holding R UE up and at chest. With supportive pillows during treatment, she had decreased symptoms and also felt relief with traction today. Although I did decrease the poundage by 2# as it was causing too much pull on R scapula (per pt). Patient was explained that we may try 1 more week of therapy to increase traction as she has had relief until last night. She understands fully. She continues to hold R UE along chest when leaving therapy. Patient Education: Education of diagnosis, Body/Joint mechanics, Home Exercise Program, Education of Plan of Care Patient demonstrates compliance with HEP?: Yes Short Term Goals Goal #1: pt independent with initial HEP Goal to be met by: 11/02/18 Progress towards Goal:: Progressing Goal #2: Improve cervical ROM WFL's Goal to be met by: 11/02/18 Progress towards Goal:: Progressing Goal #3: Decrease muscle tightness B uppertrap Goal to be met by: 11/02/18 Progress towards Goal:: Progressing Goal #4: decrease pain < 4/10 with activity Goal to be met by: 11/02/18 Snf Goals Goal #1: pt report able to sleep >4 hours without interruption from pain Goal to be met by: 11/23/18 Goal #2: pt able to perform normal daily activities with less pain Goal to be met by: 11/23/18 Goal #3: No reports of cervical radiculopathy Goal to be met by: 11/23/18 Goal to be met by: 12/21/14 Plan Dates of Snf Goals: 11/23/18 Expiration date of current Insurance Approval:: 11/23/18 PLAN: Patient to continue x 1-2 more weeks to progress traction and alleviate R UE radiculopathy.
== END 2018-11-04 23:59 ==
PROVIDERS: ATTEND Orthopaedic Surgery Orthopaedic Surgery of the Spine
DX: M54.2 Cervicalgia (principal); M54.12 Radiculopathy, cervical region

== ENCOUNTER 2018-11-13 08:15 | Outpatient (RCR) ==
[2013-01-17 21:56] VITALS: TEMP 98.9
--- NOTE | 2018-11-05 09:30 | RS.OPPTDN ---
Subjective Date of Note: 11/05/18 Visit #: 9 ((Visit # updated by PT)) Number of visits approved by Insurance: NA Date of Evaluation: 10/16/18 Payer Source: Insurance Treatment Diagnosis: cervical radiculopathy, Current Subjective/complaints:: Patient reports mid and upper back pain today as she worked all weekend. States she feels better following cervical traction. *Precautions: pt has implanted stimulator for lumbar spine Pain Assessment - Pain Description Pain Location: upper back, scapular area Current Pain Intensity: 4/10 following treatment - Heat/Cryotherapy Treatment: Hot Pack ([id number] to upper and mid back prior to cervical traction. Patient in supine. ) - Traction Treatment Method: Mechanical, Intermittent, Cervical Patient Position: Supine Amount of Force Applied: 19-20# Hold Time: 25sec Rest Time: 5sec Duration of treatment: 20mins Interventions - Exercise/Activities/Manual Therapy Exercises/Activities: Discussed HEP, no new additions. Manual Therapy: na HOME EXERCISE PROGRAM: Cervical AROM, shoulder shrugs, scap adduction - Charges Timed Code Treatment Minutes: 5mins Total Treatment Time: 45mins Procedures billed for this date of service:: HP, [place] mechanical Assessment: Patient reports good response to treatment this morning with reduction in neck and upper back pain. Short Term Goals Goal #1: pt independent with initial HEP Goal to be met by: 11/02/18 Progress towards Goal:: Progressing Goal #2: Improve cervical ROM WFL's Goal to be met by: 11/02/18 Progress towards Goal:: Progressing Goal #3: Decrease muscle tightness B uppertrap Goal to be met by: 11/02/18 Progress towards Goal:: Progressing Goal #4: decrease pain < 4/10 with activity Goal to be met by: 11/02/18 Spa Manager/Esthetician Goals Goal #1: pt report able to sleep >4 hours without interruption from pain Goal to be met by: 11/23/18 Goal #2: pt able to perform normal daily activities with less pain Goal to be met by: 11/23/18 Goal #3: No reports of cervical radiculopathy Goal to be met by: 11/23/18 Goal to be met by: 12/21/14 Plan Dates of Skilled Nursing Goals: 11/23/18 Expiration date of current Insurance Approval:: 11/23/18 PLAN: Continue progression of cervical mechanical traction.
--- NOTE | 2018-11-08 09:44 | RS.OPPTDN ---
Subjective Date of Note: 11/08/18 Visit #: 10 Number of visits approved by Insurance: no precert BC/BS, pending IDPA Date of Evaluation: 10/16/18 Payer Source: Insurance Treatment Diagnosis: cervical radiculopathy, Current Subjective/complaints:: Patient reports neck and upper back pain is better. States she has less pain during the day, but continues to have disrupted sleep due to discomfort. *Precautions: pt has implanted stimulator for lumbar spine Pain Assessment - Pain Description Pain Location: neck and upper back Current Pain Intensity: moderate - Heat/Cryotherapy Treatment: Hot Pack ([id number] to mid and upper back prior to TX. Patient in supine. ) - Traction Treatment Method: Mechanical, Intermittent, Cervical Patient Position: Supine Amount of Force Applied: 20# Hold Time: 30sec Rest Time: 5sec Duration of treatment: 20mins Interventions - Exercise/Activities/Manual Therapy Exercises/Activities: No new additions Manual Therapy: na HOME EXERCISE PROGRAM: Cervical AROM, shoulder shrugs, scap adduction - Objective Findings Observations,measurements,etc.: Reassessment of Neck DIsability Index with patient with improvement to 19 or 38% deficit (was 22 or 44% on Eval). - Charges Timed Code Treatment Minutes: 5mins Total Treatment Time: 45mins Procedures billed for this date of service:: HP, TX mechancial Assessment: Patient reporting progress with neck and upper back pain. She should benefit from continued treatment of mechanical cervical traction. Patient demonstrates compliance with HEP?: Yes Short Term Goals Goal #1: pt independent with initial HEP Goal to be met by: 11/02/18 Progress towards Goal:: Met Goal #2: Improve cervical ROM WFL's Goal to be met by: 11/02/18 Progress towards Goal:: Progressing Goal #3: Decrease muscle tightness B uppertrap Goal to be met by: 11/02/18 Progress towards Goal:: Progressing Goal #4: decrease pain < 4/10 with activity Goal to be met by: 11/02/18 Progress towards Goal:: Progressing Jail Goals Goal #1: pt report able to sleep >4 hours without interruption from pain Goal to be met by: 11/23/18 Goal #2: pt able to perform normal daily activities with less pain Goal to be met by: 11/23/18 Progress towards goal: Progressing Goal #3: No reports of cervical radiculopathy Goal to be met by: 11/23/18 Progress towards goal: Progressing Plan Dates of Wet End Tester Goals: 11/23/18 Expiration date of current Insurance Approval:: 11/23/18 PLAN: Continue and progress cervical traction to reduce pain, increase patients sleep, and increase functional activity.
--- NOTE | 2018-11-13 09:32 | RS.OPPTDN ---
Subjective Date of Note: 11/13/18 Visit #: 11 Number of visits approved by Insurance: 12 Date of Evaluation: 10/16/18 Payer Source: Insurance Treatment Diagnosis: cervical radiculopathy, Current Subjective/complaints:: Patient says she wants to avoid traction her final 2 days of therapy because she thinks that it is now causing her to have migraines. She says the few days she has had them terribly and would like to turn off her internal stimulator and use our estim to reduce pain. She says prior treatment did relieve tightness to her neck and upper back, but does not want to continue traction in hopes of avoiding migraine production. *Precautions: pt has implanted stimulator for lumbar spine - Treatment Modality: Electrical Stim Unattended Parameters/Method Applied: hivolt 2 small pads at cervical paraspinals and 2 large at the mid traps @ 55-70pk volts x 20 mins Patient Position: Sitting - Heat/Cryotherapy Treatment: Hot Pack (cervical with estim) Interventions - Exercise/Activities/Manual Therapy Exercises/Activities: No new additions Manual Therapy: DTM and trigger point work to the bilateral UT, but focused on the L side. Patient receives passive ROM for cspine for SB and rotation. She performs scap retraction and shoulder shrugs. Continued with education on posture, HeP, and body mechanics at work/home. Total minutes of Manual Therapy: 17 HOME EXERCISE PROGRAM: Cervical AROM, shoulder shrugs, scap adduction - Charges Timed Code Treatment Minutes: 17 Total Treatment Time: 37 Procedures billed for this date of service:: hp, estim (un), MT Assessment: Patient experiencing less mm guarding and tension to the UT and upper back, but has had increase in migraines she believes is stemming from traction. We avoided it today due to patient's request. She has 2 small trigger points to the L UT. SB to the L and rotation to the L cause tingling to the hands, but particularly to the 5th digits. She was able to turn off her internal stimulator so that we may use our estim, which did provide relief with patient admission upon leaving therapy today. Patient Education: Education of diagnosis, Body/Joint mechanics, Home Exercise Program, Education of Plan of Care Patient demonstrates compliance with HEP?: Yes Short Term Goals Goal #1: pt independent with initial HEP Goal to be met by: 11/02/18 Progress towards Goal:: Met Goal #2: Improve cervical ROM WFL's Goal to be met by: 11/02/18 Progress towards Goal:: Progressing Goal #3: Decrease muscle tightness B uppertrap Goal to be met by: 11/02/18 Progress towards Goal:: Progressing Goal #4: decrease pain < 4/10 with activity Goal to be met by: 11/02/18 Progress towards Goal:: Progressing Chcf Goals Goal #1: pt report able to sleep >4 hours without interruption from pain Goal to be met by: 11/23/18 Progress towards goal: No Change Goal #2: pt able to perform normal daily activities with less pain Goal to be met by: 11/23/18 Progress towards goal: Progressing Goal #3: No reports of cervical radiculopathy Goal to be met by: 11/23/18 Progress towards goal: Progressing Goal to be met by: 12/21/14 Plan Dates of Educational Coordinator Goals: 11/23/18 Expiration date of current Insurance Approval:: 11/23/18 PLAN: Continue x 1 more session.
--- NOTE | 2018-11-15 09:51 | RS.CXNS ---
Date of scheduled appointment: 11/15/18 Type: No Show Reason for Cancel/NS: This was to be patient's final visit
== END 2018-12-04 23:59 ==
PROVIDERS: ATTEND Orthopaedic Surgery Orthopaedic Surgery of the Spine
DX: M54.2 Cervicalgia (principal); M54.12 Radiculopathy, cervical region; M62.81 Muscle weakness (generalized)

== ENCOUNTER 2018-12-04 08:23 | Outpatient (CLI) ==
[2013-01-17 21:56] VITALS: TEMP 98.9
== END 2018-12-04 08:24 | disposition home or self-care (01) ==
LOC: RHC-LAB 08:23
PROVIDERS: ATTEND Nurse Practitioner Family
DX: E78.1 Pure hyperglyceridemia (principal); E78.5 Hyperlipidemia, unspecified
CPT/HCPCS: 36415; 80053; 80061

== ENCOUNTER 2018-12-19 09:48 | Outpatient (CLI) ==
[2013-01-17 21:56] VITALS: TEMP 98.9
== END 2018-12-19 09:49 | disposition home or self-care (01) ==
LOC: RHC-LAB 09:48
PROVIDERS: ATTEND Nurse Practitioner Family
DX: N39.0 Urinary tract infection, site not specified (principal)
CPT/HCPCS: 81001; 87086; 87186

== ENCOUNTER 2023-06-14 16:43 | Observation (INO) ==
[2023-06-14] MEDS ORDERED: SODIUM CHLORIDE 1,000 ML IV STA (16:57)
--- NOTE | 2023-06-14 17:06 | ED.PDOC ---
General ED Provider: Dr. LINDSAY DAVIS DO Chief Complaint: Back Pain Time Seen by Provider: 06/14/23 17:05 Information Source: Patient Primary Care Provider: CHAN PETERSON MD [facility] Medical History Cystocele with rectocele N81.10 - Cystocele, unspecified (ICD-10) N81.6 - Rectocele (ICD-10) Spider bite T63.301A - Toxic effect of unspecified spider venom, accidental (unintentional), initial encounter (ICD-10) Flu-like symptoms R68.89 - Other general symptoms and signs (ICD-10) Cough R05.9 - Cough, unspecified (ICD-10) Sore throat J02.9 - Acute pharyngitis, unspecified (ICD-10) Sinus pressure J34.89 - Other specified disorders of nose and nasal sinuses (ICD-10) Acute upper respiratory infection J06.9 - Acute upper respiratory infection, unspecified (ICD-10) Osteoarthritis M19.90 - Unspecified osteoarthritis, unspecified site (ICD-10) The administrative codes within the IMO content you are accessing may have expir ed as of 05/07/2020. Please contact your IT Dept/Help Desk and request the latest Regulatory release be installed. IT Dept/Help Desk- Please refer to our FAQ page ([email or web address] or contact [facility] Customer Support at [email or web address] (02/08/19) Endometriosis N80.9 - Endometriosis, unspecified (ICD-10) Bone spur of foot M77.50 - Other enthesopathy of unspecified foot and ankle (ICD-10) Arthritis M19.90 - Unspecified osteoarthritis, unspecified site (ICD-10) Elevated cholesterol E78.00 - Pure hypercholesterolemia, unspecified (ICD-10) Fatty liver K76.0 - Fatty (change of) liver, not elsewhere classified (ICD-10) Polycystic ovaries E28.2 - Polycystic ovarian syndrome (ICD-10) Family History FATHER Diabetes Hyperlipidemia Hypertension Mother Depression Social History Smoking and tobacco status: Current every day smoker Alcohol intake: current Alcohol intake frequency: 0-2 drinks per day Counseling given: No Substance use type: does not use Counseling given: No Special sheyla needs: No Agree to transfusion: Yes Adopted: No Caregiver/support person: No Foster care: No Household members: none Housing: homeless Marital status: D Lives independently: No Daycare: no daycare Number of children: 2 Highest education level completed: some college, no degree Financial difficulty paying for basics: very hard service: No skilled nursing: No Current occupational status: employed Pets and animals: Yes History of recent travel: No Sexually active: Yes Do you think of yourself as: straight/heterosexual Current gender identity: female Seatbelt use: always Helmet use: Yes Drives intoxicated or rides with intoxicated catering truck driver: No Water heater temperature set < 120 degrees: Yes Working smoke detector in home: Yes Fire extinguisher in home: Yes Carbon monoxide detector in home: Yes Firearms in home: No Surgical History History of appendectomy Z90.49 - Acquired absence of other specified parts of digestive tract (ICD- 10) spine stimulator implant (08/17/16) History of gynecological procedure Z98.890 - Other specified postprocedural states (ICD-10) Status post tonsillectomy Z90.89 - Acquired absence of other organs (ICD-10) Status post cholecystectomy Z90.49 - Acquired absence of other specified parts of digestive tract (ICD- 10) Status post tonsillectomy and adenoidectomy Z90.89 - Acquired absence of other organs (ICD-10) Female Reproductive History Menstrual Hx Hysterectomy: Yes Hx Tubal Ligation: No Course Course Orders, Labs, Meds: Orders Category Date Time Status NPO REMINDER: IMAGING ONCE CARE 06/14/23 16:57 Active CBC W/ AUTO DIFF Stat LAB 06/14/23 16:56 Ordered COMPREHENSIVE METABOLIC PANEL Stat LAB 06/14/23 16:56 Ordered URINALYSIS C & S IF INDICATED Stat LAB 06/14/23 16:56 Uncollected URINE Stat LAB 06/14/23 16:58 Uncollected Sodium Chloride 0.9% [Sodium Chloride] 1,000 ml Meds 06/14/23 16:[address] ABDOMEN/PELVIS W CONTRAST Stat RADS 06/14/23 16:[address] LUMBAR SPINE W/O CONTRAST Stat RADS 06/14/23 16:56 Ordered Medications Generic Name Dose Route Start Last Admin Trade Name Freq PRN Reason Stop Dose Admin Sodium Chloride 1,000 mls @ 1,000 mls/hr 06/14/23 16:57 Sodium Chloride IV 06/14/23 17:56 BOLUS STA Vital Signs: Temp Pulse Resp BP Pulse Ox 06/14/23 16:49 98.7 F 97 20 136/94 H 97 Discharge Plan Discharge Prescriptions: No Action levofloxacin 750 mg tablet 750 mg PO Q24H 5 Days Qty: 5 0RF gabapentin 600 mg tablet 600 mg PO QID meloxicam 15 mg tablet 15 mg PO DAILY levothyroxine 100 mcg tablet 100 mcg PO DAILY hydrocodone-acetaminophen 10-325 mg tablet 1 tab PO TID Patient Comments: PT GOES TO PAIN MANAGEMENT amitriptyline 50 mg tablet 50 mg PO QHS Qty: 90 0RF trazodone 100 mg tablet 200 mg PO QHS Qty: 180 0RF propranolol 10 mg tablet 10 mg PO TID PRN (Reason: anxiety) Qty: 90 1RF bupropion HCl [Wellbutrin XL] 300 mg tablet extended release 24 hr 300 mg PO QAM Qty: 90 0RF cetirizine [All Day Allergy (cetirizine)] 10 mg tablet 10 mg PO DAILY LAB PRN (Reason: Allergy Symptoms) Qty: 30 0RF lisinopril 10 mg tablet 10 mg PO QDAY Qty: 90 2RF ondansetron 4 mg tablet,disintegrating 4 mg PO Q8H 10 Days Qty: 30 0RF ED Provider: LINDSAY DAVIS Physician Progress Note: []
[2023-06-14 17:13] LABS: BASOPHILS # (AUTO) 0.1 K/uL (0-0.2); BASOPHILS % (AUTO) 0.4 % (0.0-3.0); EOSINOPHILS # (AUTO) 0.1 K/ul (0.0-0.7); EOSINOPHILS % (AUTO) 0.3 % (0.0-7.0); HEMATOCRIT 44.1 % (37.0-47.0); HEMOGLOBIN 14.3 g/dl (12.0-16.0); IMMATURE GRANULOCYTE # (AUTO) 0.1 (0.0-1.0); IMMATURE GRANULOCYTE % (AUTO) 0.6 % (0.0-5.0); LYMPHOCYTES # (AUTO) 4.1 K/uL (0.60-3.4); LYMPHOCYTES % (AUTO) 19.7 (10.0-50.0); MEAN CORPUSCULAR HEMOGLOBIN 27.9 pg (27.0-31.0); MEAN CORPUSCULAR HGB CONC 32.4 (31.8-35.4); MONOCYTES # (AUTO) 1.1 K/uL (0.4-2.0); MONOCYTES % (AUTO) 5.2 (0-10); NEUTROPHILS # (AUTO) 15.5 K/ul (2.0-6.9); NEUTROPHILS % (AUTO) 73.8 % (42.2-75.2); PLATELET COUNT 360 10^3/uL (140-440); RDW COEFFICIENT OF VARIATION 13.2 % (11.6-14.8); RED BLOOD COUNT 5.13 10^6/ul (4.20-5.40); WHITE BLOOD COUNT 21.05 K/ul (4.6-10.2)
[2023-06-14 17:16] LABS: BILIRUBIN,URINE Negative (NEGATIVE); CLARITY,URINE Clear (CLEAR); COLOR,URINE Yellow (YELLOW); GLUCOSE, URINE (UA) Negative (NEGATIVE); KETONES,URINE Negative (NEGATIVE); LEUKOCYTE ESTERASE ,URINE Negative (NEGATIVE); NITRITE,URINE Negative (NEGATIVE); PROTEIN,URINE Negative (NEGATIVE); URINE, BLOOD Negative (NEGATIVE); UROBILINOGEN,URINE 0.2 (0.2)
[2023-06-14 17:25] LABS: ALANINE AMINOTRANSFERASE 19.2 U/L (0-35); ALBUMIN 4.29 g/dL (3.5-5.0); ALKALINE PHOSPHATASE 84.9 U/L (38-126); ASPARTATE AMINO TRANSFERASE 19.8 U/L (14-36); BILIRUBIN,TOTAL 0.29 mg/dL (0.2-1.3); BLOOD UREA NITROGEN 20.9 mg/dL (7-17); CALCIUM 9.09 mg/dL (8.4-10.2); CARBON DIOXIDE 21.3 mmol/L (22-30.0); CREATININE 1.1 mg/dL (0.60-1.30); GLUCOSE 126.9 mg/dL (74-106); POTASSIUM 4.22 mmol/L (3.5-5.1); SODIUM 137.8 mmol/L (134.5-145); TOTAL PROTEIN 8.16 g/dL (6.3-8.2)
--- NOTE | 2023-06-14 18:14 | CT ---
EXAMINATION: CT LUMBAR SPINE WITHOUT CONTRAST HISTORY: Flank pain. Prior fusion. TECHNIQUE: Computed tomography (CT) of the lumbar spine was performed according to standard protocol without intravenous contrast. Contrast Dose: None CT Dose Reduction Techniques Performed: Yes COMPARISON: CT lumbar spine 08/28/2016 FINDINGS: Numbering/Segmentation: Last fully formed disk space is designated L5-S1. Alignment: Minimal retrolisthesis of L3 on L4. Post-Surgical Changes/Hardware: L5-S1 interbody fusion with partial anterior ankylosis and right L5-S 1 partial facetectomy. Bones: No acute fracture. No chronic compression deformity. Disk Spaces: Normal disk heights. Soft Tissues: Normal. Limited Abdomen: No renal lesion. Abdominal aorta is normal in caliber. Visualized Lower Thoracic Spine: There is no neural foraminal stenosis. There is no spinal canal vineet nosis. Level By Level Degenerative Changes: - L1-L2: The disk is normal in configuration. There is no facet arthropathy. There is no neural for aminal stenosis. There is no spinal canal stenosis. - L2-L3: The disk is normal in configuration. There is no facet arthropathy. There is no neural for aminal stenosis. There is no spinal canal stenosis. - L3-L4: Small disc bulge. There is no facet arthropathy. There is no neural foraminal stenosis. T here is no spinal canal stenosis. - L4-L5: Small disc bulge. There is mild right facet arthropathy. There is no neural foraminal sten osis. There is no spinal canal stenosis. - L5-S1: Fused level. There is mild right facet arthropathy. There is mild to moderate right neural foraminal stenosis. There is no spinal canal stenosis. Limited Sacrum/Pelvis: Within normal limits. IMPRESSION: Degenerative changes of the lumbar spine including mild to moderate L5-S1 neural foraminal stenosis. L5-S1 interbody fusion. All CT scans are performed using dose optimization techniques as appropriate to the performed exam an d include at least one of the following: Automated exposure control, adjustment of the mA and/or kV according t o size, and the use of iterative reconstruction technique.
--- NOTE | 2023-06-14 18:16 | CT ---
EXAM: CT ABDOMEN AND PELVIS WITHOUT CONTRAST HISTORY: Persistent urinary tract infection symptoms. TECHNIQUE: CT acquisition of the abdomen and pelvis from the lower thorax through the pelvis without IV contrast administration. IV contrast: None. Oral contrast: None. Low dose protocol: No. CT Dose Reduction Techniques Performed: Yes. COMPARISON: CT abdomen and pelvis 06/16/2022 FINDINGS: Liver: No mass. Normal morphology. Biliary: No biliary ductal dilation. Cholecystectomy. Pancreas: No duct dilation. No mass. Spleen: No mass. No splenomegaly. Adrenals: No mass. Kidneys/Ureters: No mass, calculus, or hydronephrosis. GI Tract: No bowel dilation. No bowel wall thickening. Appendectomy. No diverticulosis. Peritoneal Cavity: No ascites. Retroperitoneum: No fluid collection. Lymph Nodes: No lymphadenopathy. Vasculature: No aortic calcifications. No aortic or iliac aneurysm within limitations of noncontrast examination. Pelvis: Urinary bladder is normal. No free fluid. Bones/Soft Tissues: Please see the concurrently dictated CT of the lumbar spine for detailed evaluati on. Partially imaged thoracic spinal cord stimulator. No fracture. Visualized soft tissues are with in normal limits. Lower Thorax: Minimal atelectasis in the lingula. IMPRESSION: No acute abnormality in the abdomen or pelvis. Urinary tract infections cannot be excluded on CT. All CT scans are performed using dose optimization techniques as appropriate to the performed exam an d include at least one of the following: Automated exposure control, adjustment of the mA and/or kV according t o size, and the use of iterative reconstruction technique.
[2023-06-14] MEDS ORDERED: ZOSYN 4.5 GM 4.5 GM in SODIUM CHLORIDE 100ML 100 ML IV ONE (18:54)
[2023-06-14 19:16] LABS: SARS COV-2 RNA RAPID NAAT NEGATIVE (NEGATIVE)
[2023-06-14] MEDS ORDERED: ZOFRAN 4 MG/2 ML IVP PRN (19:51)
[2023-06-14] MEDS ORDERED: MORPHINE 4 MG/ML SYRINGE IVP ONE (20:14)
[2023-06-14] MEDS: SODIUM CHLORIDE 1,000 ML IV SCH (20:20)
[2023-06-14 21:25] VITALS: BMI 34.7
[2023-06-14] MEDS ORDERED: INDERAL PO PRN (21:30)
[2023-06-14] MEDS ORDERED: NORCO 10-325 PO SCH (21:35)
[2023-06-14] MEDS ORDERED: CLARITIN PO PRN (21:52)
[2023-06-14] MEDS: DESYREL PO SCH (22:02)
[2023-06-14] MEDS: ZESTRIL PO SCH (22:02)
[2023-06-14] MEDS: ELAVIL PO SCH (22:02)
[2023-06-15] MEDS ORDERED: ZOSYN 3.375 GM 3.375 GM in SODIUM CHLORIDE 100ML 100 ML IV SCH (03:00)
[2023-06-15] MEDS: SODIUM CHLORIDE 1,000 ML IV SCH ×3 (03:30→20:01)
[2023-06-15 05:38] LABS: BASOPHILS % (AUTO) 0.3 % (0.0-3.0); EOSINOPHILS # (AUTO) 0.1 K/ul (0.0-0.7); EOSINOPHILS % (AUTO) 0.6 % (0.0-7.0); HEMATOCRIT 38.8 % (37.0-47.0); HEMOGLOBIN 12.2 g/dl (12.0-16.0); IMMATURE GRANULOCYTE # (AUTO) 0.1 (0.0-1.0); IMMATURE GRANULOCYTE % (AUTO) 0.6 % (0.0-5.0); LYMPHOCYTES # (AUTO) 3.2 K/uL (0.60-3.4); LYMPHOCYTES % (AUTO) 22.7 (10.0-50.0); MEAN CORPUSCULAR HEMOGLOBIN 27.4 pg (27.0-31.0); MEAN CORPUSCULAR HGB CONC 31.4 (31.8-35.4); MONOCYTES # (AUTO) 0.8 K/uL (0.4-2.0); MONOCYTES % (AUTO) 5.8 (0-10); NEUTROPHILS # (AUTO) 9.8 K/ul (2.0-6.9); PLATELET COUNT 290 10^3/uL (140-440); RDW COEFFICIENT OF VARIATION 13.4 % (11.6-14.8); RED BLOOD COUNT 4.46 10^6/ul (4.20-5.40); WHITE BLOOD COUNT 14.03 K/ul (4.6-10.2)
[2023-06-15 05:48] LABS: ALANINE AMINOTRANSFERASE 15.5 U/L (0-35); ALBUMIN 3.52 g/dL (3.5-5.0); ALKALINE PHOSPHATASE 70.4 U/L (38-126); ASPARTATE AMINO TRANSFERASE 14.8 U/L (14-36); BILIRUBIN,TOTAL 0.22 mg/dL (0.2-1.3); BLOOD UREA NITROGEN 17.5 mg/dL (7-17); CALCIUM 8.1 mg/dL (8.4-10.2); CARBON DIOXIDE 23.5 mmol/L (22-30.0); CHLORIDE 110.5 mmol/L (98-107); CREATININE 1.06 mg/dL (0.60-1.30); GLUCOSE 114.1 mg/dL (74-106); POTASSIUM 4.12 mmol/L (3.5-5.1); SODIUM 137.6 mmol/L (134.5-145); TOTAL PROTEIN 6.68 g/dL (6.3-8.2)
[2023-06-15] MEDS ORDERED: SYNTHROID PO SCH ×2 (07:02→09:00)
[2023-06-15] MEDS: SYNTHROID PO SCH (07:07)
[2023-06-15] MEDS: NORCO 10-325 PO PRN ×2 (07:08→16:54)
[2023-06-15] MEDS: MOBIC PO SCH (07:16)
[2023-06-15] MEDS: NEURONTIN PO SCH ×4 (08:23→20:01)
[2023-06-15] MEDS: ZESTRIL PO SCH (08:23)
[2023-06-15] MEDS: ZOSYN 3.375 GM 3.375 GM in SODIUM CHLORIDE 100ML 100 ML IV SCH ×2 (09:46→17:00)
--- NOTE | 2023-06-15 10:42 | PCM ---
Date of Service Date Seen by Provider: 06/15/23 Time Seen by Provider: 09:00 Admit Day/Time Admission Date: 06/14/23 Admission Time: 19:00 Reason for Admission Chief Complaint: SEPSIS, UTI Hospital Provider Hospital Provider: ELIZABETH FINLEY, [facility] Primary Care Physician Primary Care Physician: CHAN PETERSON MD History of Present Illness History of Present Illness: 43 yo female presented to the ER with flank pain and urinary symptoms. Patient states that she went to her PCP on 06/05 due to UTI symptoms. Was prescribed cipro and completed 7 days of it without resolution of symptoms. She was then started on levaquin and symptoms persistent despite antibiotic change. Urine culture showed growth of E. Coli sensitive to both medications. However, she has continued L flank pain and L sided abdominal pain as well as pain and burning on urination. Has pmh of cytocele and rectocele that she is having surgical intervention on the end of this month. States she has become septic before from UTI and states that she has been feeling similar to how she felt then. Denies any chills, N/V/D, chest pain. Case Discussed With Case Discussed With: Patient's case was discussed with the ER Physicians, Dr. Ji [facility] Medical History Cystocele and rectocele with complete uterovaginal prolapse N81.3 - Complete uterovaginal prolapse (ICD-10) Cystocele with rectocele N81.10 - Cystocele, unspecified (ICD-10) N81.6 - Rectocele (ICD-10) Spider bite Monitor over next 3-5 days. She noted improvement today. T63.301A - Toxic effect of unspecified spider venom, accidental (uninte ntional), initial encounter (ICD-10) Flu-like symptoms R68.89 - Other general symptoms and signs (ICD-10) Cough R05.9 - Cough, unspecified (ICD-10) Sore throat J02.9 - Acute pharyngitis, unspecified (ICD-10) Sinus pressure J34.89 - Other specified disorders of nose and nasal sinuses (ICD-10) Acute upper respiratory infection J06.9 - Acute upper respiratory infection, unspecified (ICD-10) Osteoarthritis M19.90 - Unspecified osteoarthritis, unspecified site (ICD-10) The administrative codes within the IMO content you are accessing may have as of 05/07/2020. Please contact your IT Dept/Help Desk and request the latest Regulatory release be installed. IT Dept/Help Desk- Please refer to our FAQ page ([email or web address] or contact [employer] Customer Support at [email or web address] (02/08/19) Endometriosis ovarian cysts, cervical ca N80.9 - Endometriosis, unspecified (ICD-10) Bone spur of foot M77.50 - Other enthesopathy of unspecified foot and ankle (ICD-10) Arthritis M19.90 - Unspecified osteoarthritis, unspecified site (ICD-10) Elevated cholesterol E78.00 - Pure hypercholesterolemia, unspecified (ICD-10) Fatty liver K76.0 - Fatty (change of) liver, not elsewhere classified (ICD-10) Polycystic ovaries E28.2 - Polycystic ovarian syndrome (ICD-10) Surgical History History of appendectomy Z90.49 - Acquired absence of other specified parts of digestive tract (ICD- 10) spine stimulator implant (08/17/16) History of gynecological procedure cervical ca Z98.890 - Other specified postprocedural states (ICD-10) Status post tonsillectomy Z90.89 - Acquired absence of other organs (ICD-10) Status post cholecystectomy Z90.49 - Acquired absence of other specified parts of digestive tract (ICD- 10) Status post tonsillectomy and adenoidectomy Z90.89 - Acquired absence of other organs (ICD-10) Family History FATHER Diabetes Hyperlipidemia Hypertension Mother Depression Social History Smoking and tobacco status: Current every day smoker Alcohol intake: current Alcohol intake frequency: 0-2 drinks per day Counseling given: No Substance use type: does not use Counseling given: No Special sheyla needs: No Agree to transfusion: Yes Adopted: No Caregiver/support person: No Foster care: No Household members: none Housing: homeless Marital status: D Lives independently: No Daycare: no daycare Number of children: 2 Highest education level completed: some college, no degree Financial difficulty paying for basics: very hard service: No USP: No Current occupational status: employed Pets and animals: Yes History of recent travel: No Sexually active: Yes Do you think of yourself as: straight/heterosexual Current gender identity: female Seatbelt use: always Helmet use: Yes Drives intoxicated or rides with intoxicated 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: No Water heater temperature set < 120 degrees: Yes Working smoke detector in home: Yes Fire extinguisher in home: Yes Carbon monoxide detector in home: Yes Firearms in home: No Allergies Allergies Allergy/AdvReac Type Severity Reaction Status Date / Time bacitracin zinc AdvReac Unknown Unknown Verified 06/14/23 16:56 [From Neosporin ([id number])] neomycin sulfate AdvReac Unknown Unknown Verified 06/14/23 16:56 [From Neosporin ([id number])] polymyxin B AdvReac Unknown Unknown Verified 06/14/23 16:56 [From Neosporin ([id number])] bacitracin AdvReac Unknown Verified 06/14/23 16:56 [From Neosporin ([id number])] diphenhydramine HCl AdvReac Anaphylaxis Verified 06/14/23 16:56 [From Benadryl] levalbuterol HCl AdvReac Anxiety Verified 06/14/23 16:56 [From Xopenex] prednisone AdvReac Hives Verified 06/14/23 16:56 Z-pack Allergy Severe Hives Uncoded 06/05/23 08:44 Polymyxin B AdvReac Unknown Unknown Uncoded 06/05/23 08:44 Current Medications Home Medications lisinopril 10 mg tablet 10 mg PO QDAY #90 tabs 09/15/22 [Rx Confirmed 06/14/23 Last Taken 06/13/23] gabapentin 600 mg tablet 600 mg PO QID 12/31/22 [History Confirmed 06/14/23 Last Taken 06/14/23 13:00] hydrocodone 10 mg-acetaminophen 325 mg tablet 1 tab PO TID 12/31/22 [History Confirmed 06/14/23 Last Taken 06/14/23 13:00] levothyroxine 100 mcg tablet 100 mcg PO DAILY 12/31/22 [History Confirmed 06/14/23 Last Taken Unknown] meloxicam 15 mg tablet 15 mg PO DAILY 12/31/22 [History Confirmed 06/14/23 Last Taken 06/13/23] amitriptyline 50 mg tablet 50 mg PO QHS #90 tabs 05/11/23 [Rx Confirmed 06/14/23 Last Taken 06/13/23] propranolol 10 mg tablet 10 mg PO TID PRN anxiety #90 tabs 05/11/23 [Rx Confirmed 06/14/23 Last Taken Unknown] trazodone 100 mg tablet 200 mg (2 x 100 mg) PO QHS #180 tabs 05/11/23 [Rx Confirmed 06/14/23 Last Taken 06/13/23] ondansetron 4 mg disintegrating tablet 4 mg PO Q8H 10 days #30 tabs 06/05/23 [Rx Confirmed 06/14/23 Last Taken 06/14/23 15:00] levofloxacin 750 mg tablet 750 mg PO Q24H 5 days #5 tabs 06/13/23 [Rx Confirmed 06/14/23 Last Taken Unknown] bupropion HCl 300 mg 24 hr tablet, extended release (Wellbutrin XL) 300 mg PO QPM 06/14/23 [History Confirmed 06/14/23 Last Taken 06/13/23] cetirizine 10 mg tablet (All Day Allergy (cetirizine)) 10 mg PO DAILY PRN Allergy Symptoms 06/14/23 [History Confirmed 06/14/23 Last Taken Unknown] Home Hydrocodone Bitart/Acetaminophen (Hydrocodone Bit/Acetaminophen 10/325 Mg Tablet) 1 tab PO TID PRN PRN Reason: Pain Last Admin: 06/15/23 07:08 Dose: 1 tab Amitriptyline HCl (Amitriptyline Hcl 25 Mg Tablet) 50 mg PO BEDTIME [facility] Last Admin: 06/14/23 22:02 Dose: 50 mg Gabapentin (Gabapentin 300 Mg Capsule) 600 mg PO QID PAULA Last Admin: 06/15/23 08:23 Dose: 600 mg Sodium Chloride (Sodium Chloride) 1,000 mls @ 125 mls/hr IV .Q8H [facility] Last Admin: 06/15/23 03:30 Dose: 125 mls/hr Piperacillin Sod/Tazobactam (Sod 3.375 gm/ Sodium Chloride) 100 mls @ 200 mls/hr IV Q6HR [facility] Stop: 06/18/23 02:59 Last Admin: 06/15/23 09:46 Dose: 200 mls/hr Levothyroxine Sodium (Levothyroxine Sodium 100 Mcg Tablet) 100 mcg PO QDAC2 [facility] Last Admin: 06/15/23 07:07 Dose: 100 mcg Lisinopril (Lisinopril 10 Mg Tablet) 10 mg PO DAILY [facility] Last Admin: 06/15/23 08:23 Dose: 10 mg Loratadine (Loratadine 10 Mg Tablet) 10 mg PO DAILY PRN PRN Reason: Allergy Symptoms Meloxicam (Meloxicam 7.5 Mg Tablet) 15 mg PO DAILYWM2 [facility] Last Admin: 06/15/23 07:16 Dose: 15 mg Ondansetron HCl (Ondansetron Hcl/Pf 4 Mg/2 Ml Sdv) 4 mg IVP Q6H PRN PRN Reason: Nausea / Vomiting Propranolol HCl (Propranolol Hcl 20 Mg Tablet) 10 mg PO TID PRN PRN Reason: Anxiety Trazodone HCl (Trazodone Hcl 50 Mg Tablet) 200 mg PO BEDTIME [facility] Last Admin: 06/14/23 22:02 Dose: 200 mg Discontinued Medications Hydrocodone Bitart/Acetaminophen (Hydrocodone Bit/Acetaminophen 10/325 Mg Tablet) 1 tab PO TID [facility] Last Admin: 06/14/23 21:56 Dose: Not Given Sodium Chloride (Sodium Chloride) 1,000 mls @ 1,000 mls/hr IV BOLUS STA Stop: 06/14/23 17:56 Last Infusion: 06/14/23 18:56 Dose: Infused Piperacillin Sod/Tazobactam (Sod 4.5 gm/ Sodium Chloride) 100 mls @ 200 mls/hr IV ONCE ONE Stop: 06/14/23 19:23 Last Admin: 06/14/23 19:43 Dose: 200 mls/hr Piperacillin Sod/Tazobactam (Sod 3.375 gm/ Sodium Chloride) 100 mls @ 200 mls/hr IV Q8H [facility] Stop: 06/18/23 02:59 Last Admin: 06/15/23 03:17 Dose: 200 mls/hr Levothyroxine Sodium (Levothyroxine Sodium 100 Mcg Tablet) 100 mcg PO DAILY [facility] Levothyroxine Sodium (Levothyroxine Sodium 100 Mcg Tablet) 100 mcg PO DAILY [facility] Last Admin: 06/15/23 07:11 Dose: Not Given Morphine Sulfate (Morphine Sulfate 4 Mg/Ml Syringe) 4 mg IVP ONCE ONE Stop: 06/14/23 20:15 Last Admin: 06/14/23 20:21 Dose: 4 mg Review of Systems Constitutional: Reports Fatigue Head: Reports Normocephalic Eyes: Reports No symptoms Ears: Reports No symptoms Mouth: Reports No symptoms Throat: Reports No symptoms Cardiovascular: Reports No symptoms Respiratory: Reports No symptoms Genitourinary: Reports Dysuria and Flank Pain Musculoskeletal: Reports No symptoms Endocrine: Reports No symptoms Hematology: Reports No symptoms Immunology: Reports No symptoms Neurological: Reports No symptoms Psychiatric: Reports No symptoms Physical examination Most Recent Vital Signs: Most Recent Vital Signs Temperature 97.7 F 06/15/23 10:00 Temperature Source Oral 06/15/23 10:00 Temperature Source Infrared 06/14/23 20:09 Pulse Rate 87 06/15/23 10:00 Respiratory Rate 19 06/15/23 10:00 Blood Pressure 127/75 06/15/23 10:00 Blood Pressure Mean 92 06/15/23 10:00 Blood Pressure Left Arm 133/94 06/14/23 20:33 Blood Pressure Location Left Arm 06/15/23 10:00 Blood Pressure Position Sitting 06/15/23 10:00 O2 Sat by Pulse Oximetry 95 06/15/23 10:00 Oxygen Delivery Method Room Air 06/15/23 10:00 Height 5 ft 8 in 06/14/23 20:33 Weight 228 lb 9 oz 06/14/23 20:33 Telemetry Type Remote Telemetry 06/15/23 07:00 Telemetry Monitoring Continues 06/15/23 07:00 Telemetry Heart Rate 94 06/15/23 07:00 EKG IN Interval 0.17 06/15/23 07:00 EKG QRS Interval 0.09 06/15/23 07:00 Telemetry Strip Reading NSR 06/15/23 07:00 Appearance: Positive No Apparent Distress and Alert and Oriented x3 Skin: Positive Warm HEENT: Positive Normocephalic and PERRLA Neck: Positive Supple and Midline Trachea Chest/Lungs: Positive Symmetrical With Equal Breath Sounds, Clear to Auscultation Bilaterally and Good Air Movement all 4 Lung [place] Heart: Positive RRR and Pulses Normal GI/: Positive Soft, Nontender, Bowel Sounds Normal and Tender (left flank and left lower abdomen) Musculoskeletal: Positive Not Examined Extremities: Positive Intact Peripheral Pulses, Stable Joints Without Laxity and Good ROM in All Joints Neurological: Positive Sensation Intact, Motor intact, Reflexes Intact, Alert, Oriented and Muscle Strength 5/5 in Upper and Lower Extremities Bilaterally Labs This Visit Labs This Visit: Labs This Visit 06/14/23 06/14/23 06/14/23 17:00 18:55 19:15 WBC 21.05 H RBC 5.13 Hgb 14.3 Hct 44.1 MCV 86.0 MCH 27.9 MCHC 32.4 RDW Coeff of Veronica 13.2 Plt Count 360 Immature Gran % (Auto) 0.6 Neut % (Auto) 73.8 Lymph % (Auto) 19.7 [place] % (Auto) 5.2 Eos % (Auto) 0.3 Baso % (Auto) 0.4 Neut # (Auto) 15.5 H Lymph # (Auto) 4.1 H [place] # (Auto) 1.1 Eos # (Auto) 0.1 Baso # (Auto) 0.1 Immature Gran # (Auto) 0.1 Sodium 137.8 Potassium 4.22 Chloride 108.0 H Carbon Dioxide 21.3 L Anion Gap 12.72 BUN 20.9 H Creatinine 1.10 Estimated GFR (MDRD) 55.00 BUN/Creatinine Ratio 19.00 Glucose 126.9 H Lactic Acid 1.02 Calcium 9.09 Total Bilirubin 0.29 AST 19.8 ALT 19.2 Alkaline Phosphatase 84.9 Total Protein 8.16 Albumin 4.29 Globulin 3.87 Albumin/Globulin Ratio 1.10 Procalcitonin Urine Color Yellow Urine Clarity Clear Urine pH 6.0 Ur Specific [place] >=1.030 Urine Protein Negative Urine Glucose (UA) Negative Urine Ketones Negative Urine Blood Negative Urine Nitrite Negative Urine Bilirubin Negative Urine Urobilinogen 0.2 Ur Leukocyte Esterase Negative SARS CoV-2 RNA Rapid JOANIE Negative 06/14/23 06/15/23 20:21 05:03 WBC 14.03 H D RBC 4.46 Hgb 12.2 Hct 38.8 MCV 87.0 MCH 27.4 MCHC 31.4 L RDW Coeff of Veronica 13.4 Plt Count 290 Immature Gran % (Auto) 0.6 Neut % (Auto) 70.0 Lymph % (Auto) 22.7 [place] % (Auto) 5.8 Eos % (Auto) 0.6 Baso % (Auto) 0.3 Neut # (Auto) 9.8 H Lymph # (Auto) 3.2 [place] # (Auto) 0.8 Eos # (Auto) 0.1 Baso # (Auto) 0.0 Immature Gran # (Auto) 0.1 Sodium 137.6 Potassium 4.12 Chloride 110.5 H Carbon Dioxide 23.5 Anion Gap 7.72 BUN 17.5 H Creatinine 1.06 Estimated GFR (MDRD) 57.00 BUN/Creatinine Ratio 16.50 Glucose 114.1 H Lactic Acid Calcium 8.10 L Total Bilirubin 0.22 AST 14.8 ALT 15.5 Alkaline Phosphatase 70.4 Total Protein 6.68 Albumin 3.52 Globulin 3.16 Albumin/Globulin Ratio 1.11 Procalcitonin < 0.05 Urine Color Urine Clarity Urine pH Ur Specific [place] Urine Protein Urine Glucose (UA) Urine Ketones Urine Blood Urine Nitrite Urine Bilirubin Urine Urobilinogen Ur Leukocyte Esterase SARS CoV-2 RNA Rapid JOANIE Imaging Imaging: EXAM: CT ABDOMEN AND PELVIS WITHOUT CONTRAST HISTORY: Persistent urinary tract infection symptoms. TECHNIQUE: CT acquisition of the abdomen and pelvis from the lower thorax th rough the pelvis without IV contrast administration. IV contrast: None. Oral contrast: None. Low dose protocol: No. CT Dose Reduction Techniques Performed: Yes. COMPARISON: CT abdomen and pelvis 06/16/2022 FINDINGS: Liver: No mass. Normal morphology. Biliary: No biliary ductal dilation. Cholecystectomy. Pancreas: No duct dilation. No mass. Spleen: No mass. No splenomegaly. Adrenals: No mass. Kidneys/Ureters: No mass, calculus, or hydronephrosis. GI Tract: No bowel dilation. No bowel wall thickening. Appendectomy. No diverticulosis. Peritoneal Cavity: No ascites. Retroperitoneum: No fluid collection. Lymph Nodes: No lymphadenopathy. Vasculature: No aortic calcifications. No aortic or iliac aneurysm within limitations of noncontrast examination. Pelvis: Urinary bladder is normal. No free fluid. Bones/Soft Tissues: Please see the concurrently dictated CT of the lumbar spine for detailed evaluation. Partially imaged thoracic spinal cord stimulator. No fracture. Visualized soft tissues are within normal limits. Lower Thorax: Minimal atelectasis in the lingula. IMPRESSION: No acute abnormality in the abdomen or pelvis. Urinary tract infections cannot be excluded on CT. Review Statement Review Statement: I have independently reviewed and interpreted the labs/EKGs/imaging that were ordered by the ER provider. I have reviewed all outside records that are available currently in our EMR including imaging/notes/labs from previous visits. Plan Plan: 1. Sepsis r/o in setting of persistent UTI - received NS in ER and zosyn, continuing zosyn and NS@125mL/hr, blood cultures pending 2. UTI - UA improved from 06/05, culture positive for E. Coli sensitive to levaquin and cipro, started on zosyn which is also sensitive on culture, will monitor for symptom improvement 3. Cystocele/Rectocele - surgery scheduled end of this month 4. Hypothyroidism - chronic, continue home medications 5. Hypertension - chronic, continue home medications 6. Hyperlipidemia - chronic, continue home medications DVT Prophylaxis: Up ad nata Time Spent: Greater than 80 minutes spent with patient, 50% of the time spent with this patient was devoted to counseling and coordination of care. [facility]in minutes spent discussing advance care planning. Disposition: Admit to: Med/Surg Observation Full Code Discussed Plan of Care with Dr. Lilia Colón. Medications Medication Orders: Medications Ordered Category Date Time Status Amitriptyline HCl [Elavil] Meds 06/14/23 21:30 Active 50 mg PO BEDTIME Gabapentin [Neurontin] Meds 06/15/23 09:00 Active 600 mg PO QID Hydrocodone Bit/Acetaminophen [[place] 10-325] Meds 06/14/23 21:57 Active 1 tab PO TID PRN Levothyroxine Sodium [Synthroid] Meds 06/15/23 07:30 Active 100 mcg PO QDAC2 Lisinopril [Zestril] Meds 06/14/23 21:30 Active 10 mg PO DAILY Loratadine [Claritin] Meds 06/14/23 21:52 Active 10 mg PO DAILY PRN Meloxicam [Mobic] Meds 06/15/23 07:30 Active 15 mg PO DAILYWM2 Ondansetron HCl/Pf [Zofran 4 mg/2 ml] Meds 06/14/23 19:51 Active 4 mg IVP Q6H PRN Piperacillin Sodium/Tazobactam [Zosyn 3.375 gm] 3.375 Meds 06/15/23 10:00 Active gm 0.9 % Sodium Chloride [Sodium Chloride 100Ml] 100 ml IV Q6HR Propranolol HCl [Inderal] Meds 06/14/23 21:30 Active 10 mg PO TID PRN Sodium Chloride 0.9% [Sodium Chloride] 1,000 ml Meds 06/14/23 20:00 Active IV 125 mls/hr Trazodone HCl [Desyrel] Meds 06/14/23 21:30 Active 200 mg PO BEDTIME
[2023-06-15] MEDS: ELAVIL PO SCH (20:01)
[2023-06-15] MEDS: DESYREL PO SCH (20:01)
[2023-06-16] MEDS: ZOSYN 3.375 GM 3.375 GM in SODIUM CHLORIDE 100ML 100 ML IV SCH ×3 (00:06→12:30)
[2023-06-16] MEDS: SODIUM CHLORIDE 1,000 ML IV SCH (03:07)
[2023-06-16] MEDS: SYNTHROID PO SCH (05:10)
[2023-06-16 05:17] LABS: BASOPHILS % (AUTO) 0.3 % (0.0-3.0); EOSINOPHILS # (AUTO) 0.1 K/ul (0.0-0.7); EOSINOPHILS % (AUTO) 0.7 % (0.0-7.0); HEMATOCRIT 36.9 % (37.0-47.0); HEMOGLOBIN 11.5 g/dl (12.0-16.0); IMMATURE GRANULOCYTE # (AUTO) 0.1 (0.0-1.0); IMMATURE GRANULOCYTE % (AUTO) 0.6 % (0.0-5.0); LYMPHOCYTES # (AUTO) 3.8 K/uL (0.60-3.4); LYMPHOCYTES % (AUTO) 28.4 (10.0-50.0); MEAN CORPUSCULAR HEMOGLOBIN 27.6 pg (27.0-31.0); MEAN CORPUSCULAR HGB CONC 31.2 (31.8-35.4); MEAN CORPUSCULAR VOLUME 88.7 fl (81.0-99.0); MONOCYTES # (AUTO) 0.8 K/uL (0.4-2.0); MONOCYTES % (AUTO) 6.2 (0-10); NEUTROPHILS # (AUTO) 8.5 K/ul (2.0-6.9); NEUTROPHILS % (AUTO) 63.8 % (42.2-75.2); PLATELET COUNT 249 10^3/uL (140-440); RDW COEFFICIENT OF VARIATION 13.7 % (11.6-14.8); RED BLOOD COUNT 4.16 10^6/ul (4.20-5.40); WHITE BLOOD COUNT 13.37 K/ul (4.6-10.2)
[2023-06-16] MEDS: NORCO 10-325 PO PRN (05:18)
[2023-06-16 05:26] LABS: ALANINE AMINOTRANSFERASE 14.7 U/L (0-35); ALBUMIN 3.33 g/dL (3.5-5.0); ALKALINE PHOSPHATASE 64.3 U/L (38-126); ASPARTATE AMINO TRANSFERASE 14.9 U/L (14-36); BILIRUBIN,TOTAL 0.17 mg/dL (0.2-1.3); BLOOD UREA NITROGEN 19.7 mg/dL (7-17); CALCIUM 8.07 mg/dL (8.4-10.2); CARBON DIOXIDE 26.7 mmol/L (22-30.0); CHLORIDE 111.3 mmol/L (98-107); CREATININE 1.28 mg/dL (0.60-1.30); GLUCOSE 75.1 mg/dL (74-106); POTASSIUM 4.3 mmol/L (3.5-5.1); SODIUM 139.1 mmol/L (134.5-145); TOTAL PROTEIN 6.39 g/dL (6.3-8.2)
[2023-06-16] MEDS: NEURONTIN PO SCH (08:11)
[2023-06-16] MEDS: ZESTRIL PO SCH (08:11)
[2023-06-16] MEDS: MOBIC PO SCH (08:11)
--- NOTE | 2023-06-16 09:29 | DI ---
EXAM: ONE VIEW ABDOMEN RADIOGRAPH. HISTORY: Distended abdomen. TECHNIQUE: One view. AP supine. COMPARISON: 09/19/2019. FINDINGS: Nonspecific gastrointestinal gas pattern without evidence of free air or obstruction. Sign ificantly increased stool volume throughout colon. Status post cholecystectomy. Left-sided spinal s timulator control unit. There is limited evaluation for free air on supine only exam. IMPRESSION: 1. Constipation.
[2023-06-16] MEDS ORDERED: DULCOLAX PO ONE (09:31)
[2023-06-16 10:12] VITALS: BP 138/89; PULSE 84; RESP 20; TEMP 96.8
--- NOTE | 2023-06-16 10:53 | DCSUM ---
Admission Date Admission Date: 06/14/23 Discharge Date Discharge Date: 06/16/23 Admission Diagnosis Admission Diagnosis: 1. Sepsis r/o in setting of persistent UTI 2. UTI 3. Cystocele/Rectocele Discharge Diagnosis Discharge Diagnosis: 1. Sepsis r/o in setting of persistent UTI - ruled out 2. UTI in setting of E coli- improved 3. Cystocele/Rectocele - surgery scheduled end of this month 4. Hypothyroidism - chronic, stable 5. Hypertension - chronic, stable 6. Hyperlipidemia - chronic. stable Hospital Provider Hospital Provider: IDALMIS BRITT PA-C, [facility] Primary Care Physician Primary Care Physician: CHAN PETERSON MD Summary of History and Physical Summary of History and Physical: 43 yo female presented to the ER with flank pain and urinary symptoms. Patient states that she went to her PCP on 06/05 due to UTI symptoms. Was prescribed cipro and completed 7 days of it without resolution of symptoms. She was then started on levaquin and symptoms persistent despite antibiotic change. Urine culture showed growth of E. Coli sensitive to both medications. However, she has continued L flank pain and L sided abdominal pain as well as pain and burning on urination. Has pmh of cytocele and rectocele that she is having surgical intervention on the end of this month. States she has become septic before from UTI and states that she has been feeling similar to how she felt then. Denies any chills, N/V/D, chest pain. In ER ct abd/pelvis w/o negative for acute findings. CT lumbar spine negative for acute findings. WBC 21K and patient was tachycardic. She was given fluids and zosyn. [facility] Subjective: Patient was treated wtih Zosyn. Repeat UA in ER was normal. Culture from outpatient PCP showed E coli serra sensitive. Blood cultures negative so far. Patient's dysuria resolved. She continued to have spasms of left flank. Discussed could be musculoskeletal in nature. Worse with movement. She states she takes zanaflex prn. She's also on hydrocodone for pain. Since her symptoms improved with zosyn, we discussed risks vs benefits of continuing antibiotics despite recent treatment with cipro and levaquin. With shared decision making, we will continue with 5 more days of augmentin. Encouraged probiotics. Day of discharge she complained of constipation and not passing gas. Constipation is common for her. KUB showed constipation, no sign of SBO. Dulcolax given with relief. Encouraged colace/miralax. Cont f/u outpatient with surigical correction of cystocele/rectocele. Pt agrees to plan of care. Red flags discussed on when to return. Appearance: Pleasant, No Apparent Distress, Alert and Well-appearing HEENT: MMM and Supple CVS: No Murmur Abdomen: Soft, No Distention and Other (+GENERALIZED TENDERNESS, WORSE OF LEFT FLANK, WORSE WITH MOVEMENT ) Respiratory: No Dyspnea Extremities: No Edema Vital Signs: Most Recent Vital Signs Temperature 96.8 F L 06/16/23 10:00 Temperature Source Temporal Artery Scan 06/16/23 10:00 Temperature Source Infrared 06/14/23 20:09 Pulse Rate 84 06/16/23 10:00 Respiratory Rate 20 06/16/23 10:00 Blood Pressure 138/89 06/16/23 10:00 Blood Pressure Mean 105 06/16/23 10:00 Blood Pressure Left Arm 133/94 06/14/23 20:33 Blood Pressure Location Left Radial Artery 06/16/23 10:00 Blood Pressure Position Sitting 06/16/23 10:00 O2 Sat by Pulse Oximetry 100 06/16/23 10:00 Oxygen Delivery Method Room Air 06/16/23 10:00 Height 5 ft 8 in 06/14/23 20:33 Weight 228 lb 9 oz 06/14/23 20:33 Telemetry Type Remote Telemetry 06/16/23 07:00 Telemetry Monitoring Continues 06/16/23 07:00 Telemetry Heart Rate 84 06/16/23 07:00 EKG VA Interval 0.17 06/16/23 07:00 EKG QRS Interval 0.06 06/16/23 07:00 Telemetry Strip Reading SR 06/16/23 07:00 Imaging: EXAM: CT ABDOMEN AND PELVIS WITHOUT CONTRAST HISTORY: Persistent urinary tract infection symptoms. TECHNIQUE: CT acquisition of the abdomen and pelvis from the lower thorax through the pelvis without IV contrast administration. IV contrast: None. Oral contrast: None. Low dose protocol: No. CT Dose Reduction Techniques Performed: Yes. COMPARISON: CT abdomen and pelvis 06/16/2022 FINDINGS: Liver: No mass. Normal morphology. Biliary: No biliary ductal dilation. Cholecystectomy. Pancreas: No duct dilation. No mass. Spleen: No mass. No splenomegaly. Adrenals: No mass. Kidneys/Ureters: No mass, calculus, or hydronephrosis. GI Tract: No bowel dilation. No bowel wall thickening. Appendectomy. No diverticulosis. Peritoneal Cavity: No ascites. Retroperitoneum: No fluid collection. Lymph Nodes: No lymphadenopathy. Vasculature: No aortic calcifications. No aortic or iliac aneurysm within limitations of noncontrast examination. Pelvis: Urinary bladder is normal. No free fluid. Bones/Soft Tissues: Please see the concurrently dictated CT of the lumbar spine for detailed evaluation. Partially imaged thoracic spinal cord stimulator. No fracture. Visualized soft tissues are within normal limits. Lower Thorax: Minimal atelectasis in the lingula. IMPRESSION: No acute abnormality in the abdomen or pelvis. Urinary tract infections cannot be excluded on CT. EXAMINATION: CT LUMBAR SPINE WITHOUT CONTRAST HISTORY: Flank pain. Prior fusion. TECHNIQUE: Computed tomography (CT) of the lumbar spine was performed according to standard protocol without intravenous contrast. Contrast Dose: None CT Dose Reduction Techniques Performed: Yes COMPARISON: CT lumbar spine 08/28/2016 FINDINGS: Numbering/Segmentation: Last fully formed disk space is designated L5-S1. Alignment: Minimal retrolisthesis of L3 on L4. Post-Surgical Changes/Hardware: L5-S1 interbody fusion with partial anterior ankylosis and right L5-S1 partial facetectomy. Bones: No acute fracture. No chronic compression deformity. Disk Spaces: Normal disk heights. Soft Tissues: Normal. Limited Abdomen: No renal lesion. Abdominal aorta is normal in caliber. Visualized Lower Thoracic Spine: There is no neural foraminal stenosis. There is no spinal canal stenosis. Level By Level Degenerative Changes: - L1-L2: The disk is normal in configuration. There is no facet arthropathy. There is no neural foraminal stenosis. There is no spinal canal stenosis. - L2-L3: The disk is normal in configuration. There is no facet arthropathy. There is no neural foraminal stenosis. There is no spinal canal stenosis. - L3-L4: Small disc bulge. There is no facet arthropathy. There is no neural foraminal stenosis. There is no spinal canal stenosis. - L4-L5: Small disc bulge. There is mild right facet arthropathy. There is no neural foraminal stenosis. There is no spinal canal stenosis. - L5-S1: Fused level. There is mild right facet arthropathy. There is mild to moderate right neural foraminal stenosis. There is no spinal canal stenosis. Limited Sacrum/Pelvis: Within normal limits. IMPRESSION: Degenerative changes of the lumbar spine including mild to moderate L5-S1 neural foraminal stenosis. L5-S1 interbody fusion. EXAM: ONE VIEW ABDOMEN RADIOGRAPH. HISTORY: Distended abdomen. TECHNIQUE: One view. AP supine. COMPARISON: 09/19/2019. FINDINGS: Nonspecific gastrointestinal gas pattern without evidence of free air or obstruction. Significantly increased stool volume throughout colon. Status post cholecystectomy. Left-sided spinal stimulator control unit. There is limited evaluation for free air on supine only exam. IMPRESSION: 1. Constipation. Lab Results Last 24 Hours: 06/16/23 04:59 WBC 13.37 H RBC 4.16 L Hgb 11.5 L Hct 36.9 L MCV 88.7 MCH 27.6 MCHC 31.2 L RDW Coeff of Veronica 13.7 Plt Count 249 Immature Gran % (Auto) 0.6 Neut % (Auto) 63.8 Lymph % (Auto) 28.4 [place] % (Auto) 6.2 Eos % (Auto) 0.7 Baso % (Auto) 0.3 Neut # (Auto) 8.5 H Lymph # (Auto) 3.8 H [place] # (Auto) 0.8 Eos # (Auto) 0.1 Baso # (Auto) 0.0 Immature Gran # (Auto) 0.1 Sodium 139.1 Potassium 4.30 Chloride 111.3 H Carbon Dioxide 26.7 Anion Gap 5.40 BUN 19.7 H Creatinine 1.28 Estimated GFR (MDRD) 46.00 BUN/Creatinine Ratio 15.39 Glucose 75.1 Calcium 8.07 L Total Bilirubin 0.17 L AST 14.9 ALT 14.7 Alkaline Phosphatase 64.3 Total Protein 6.39 Albumin 3.33 L Globulin 3.06 Albumin/Globulin Ratio 1.08 Discharge Instructions Discharge Planning: Discharge Planning > [address] Osorio Colón. Discharge Medications: Medications at Discharge (Home Meds & RX) lisinopril 10 mg tablet 10 mg PO QDAY #90 tabs 09/15/22 gabapentin 600 mg tablet 600 mg PO QID 12/31/22 hydrocodone 10 mg-acetaminophen 325 mg tablet 1 tab PO TID 12/31/22 levothyroxine 100 mcg tablet 100 mcg PO DAILY 12/31/22 meloxicam 15 mg tablet 15 mg PO DAILY 12/31/22 amitriptyline 50 mg tablet 50 mg PO QHS #90 tabs 05/11/23 propranolol 10 mg tablet 10 mg PO TID PRN anxiety #90 tabs 05/11/23 trazodone 100 mg tablet 200 mg (2 x 100 mg) PO QHS #180 tabs 05/11/23 ondansetron 4 mg disintegrating tablet 4 mg PO Q8H 10 days #30 tabs 06/05/23 bupropion HCl 300 mg 24 hr tablet, extended release (Wellbutrin XL) 300 mg PO QPM 06/14/23 cetirizine 10 mg tablet (All Day Allergy (cetirizine)) 10 mg PO DAILY PRN Allergy Symptoms 06/14/23 Augmentin Discharge Plan Discharge Discharge Orders: Discharge Patient (ONCE); Ordered 06/16/23 Ordered By: IDALMIS BRITT Activity Restrictions/Additional Instructions: DISCHARGE TO HOME DX: UTI FOLLOW UP WITH PCP SCHEDULED CONSIDER COLACE AND MIRALAX FOR CONSTIPATION CONSIDER PROBIOTIC OTC DUE TO ANTIBIOTIC USE DIET: HEART HEALTHY ACTIVITY: TOLERATED RETURN WITH WORSENING SYMPTOMS Instructions: Constipation (GEN), Urinary Tract Infection in Women (GEN) Care Plan Goals: Problem: Alteration in Comfort/Pain Goal: Manage pain at a tolerable level Instructions: Monitor character, location and intensity Express expectations of pain relief Pain medication as ordered Position for maximal comfort Pain management prior to activities Patient Disposition: HOME SELF-CARE Prescriptions: New amoxicillin-pot clavulanate [Augmentin] 500-125 mg tablet 1 tab PO BID 5 Days Qty: 10 0RF Continued gabapentin 600 mg tablet 600 mg PO QID meloxicam 15 mg tablet 15 mg PO DAILY levothyroxine 100 mcg tablet 100 mcg PO DAILY hydrocodone-acetaminophen 10-325 mg tablet 1 tab PO TID Patient Comments: PT GOES TO PAIN MANAGEMENT cetirizine [All Day Allergy (cetirizine)] 10 mg tablet 10 mg PO DAILY PRN (Reason: Allergy Symptoms) bupropion HCl [Wellbutrin XL] 300 mg tablet extended release 24 hr 300 mg PO QPM amitriptyline 50 mg tablet 50 mg PO QHS Qty: 90 0RF trazodone 100 mg tablet 200 mg PO QHS Qty: 180 0RF propranolol 10 mg tablet 10 mg PO TID PRN (Reason: anxiety) Qty: 90 1RF lisinopril 10 mg tablet 10 mg PO QDAY Qty: 90 2RF ondansetron 4 mg tablet,disintegrating 4 mg PO Q8H 10 Days Qty: 30 0RF Discontinued levofloxacin 750 mg tablet 750 mg PO Q24H 5 Days Qty: 5 0RF Did you review [place] [employer] for ALL controlled substances?: Not Applicable Discussed opioids are addictive and Narcan is available by prescription or from pharmacy.: No Condition: Stable Referrals: ANNETTE DE LA TORRE PA-C [PHYSICIAN [facility]] - 06/26/23 12:45 pm (HOSPITAL FOLLOW UP)
== END 2023-06-16 12:55 | disposition home or self-care (01) ==
LOC: MEDSURG B 16:43 → ED 16:43 → MEDSURG B 20:30
PROVIDERS: ADMIT Hospitalist; ATTEND Physician Assistant
DX: M48.061 Spinal stenosis, lumbar region without neurogenic claudication; Z20.822 Contact with and (suspected) exposure to COVID-19; F17.210 Nicotine dependence, cigarettes, uncomplicated; M51.36 Other intervertebral disc degeneration, lumbar region; B96.20 Unspecified Escherichia coli [E. coli] as the cause of diseases classified elsewhere; I10 Essential (primary) hypertension; E78.5 Hyperlipidemia, unspecified; N81.6 Rectocele; N81.10 Cystocele, unspecified; M51.37 Other intervertebral disc degeneration, lumbosacral region; A41.9 Sepsis, unspecified organism; Z16.29 Resistance to other single specified antibiotic; M48.062 Spinal stenosis, lumbar region with neurogenic claudication; E03.9 Hypothyroidism, unspecified; N39.0 Urinary tract infection, site not specified; K59.00 Constipation, unspecified